=== PATIENT | male | born 1945 | race Caucasian/White ===

== ENCOUNTER → 2017-10-07 07:45 | Outpatient (CLI) | payer MEDICARE, MEDICAID, SELFPAY ==
--- NOTE | 2017-10-07 | DI.ECHO.S_ITS ---
[place] +---------+ : : [address] : [address] : : : : [id number] : : : : Phone: [phone]+ Echocardiogram Report + + :Name: CHRISTINE OH Study Date: 10/07/2017 Height: 72 in : :[facility] Weight: 295 lb : : Gender: Male BSA: 2.5 m2 : :: 1945 Age: 72 yrs BP: 120/70 mmHg: :Reason For Study: SOB : :History: CABG : :Ordering Physician: Arron : :Marianela Performed By: Essie Solis : + + Interpretation Summary The left ventricle is normal in size. Left ventricular systolic function is normal. The ejection fraction is estimated to be 55-60%. LVEF has mildly improved. There are no obvious focal wall motion abnormalities noted but poor endocardial definition reduces the sensitivity for the detection of such. Cannot exclude inferior and inferoseptal hypokinesis. Assessment of diastolic parameters indicates normal left ventricular diastolic function and normal filling pressures. The right ventricle is mildly dilated. Right ventricular systolic function is at the lower limits of normal. The right ventricular systolic pressure is estimated at 31 mmHg assuming a right atrial pressure of 8 mm Hg. Both atria are normal in size. There is mild aortic regurgitation. There is mild to moderate tricuspid regurgitation. There is no other significant valvular heart disease. The ascending aorta is mild-moderately enlarged. Procedure: A two-dimensional transthoracic echocardiogram with color flow and Doppler was performed. The study quality was technically adequate. A contrast injection of Definity was performed to improve assessment of LV function. Comparison is made with the echocardiogram of 01/10/2014. The patient was in normal sinus rhythm during the exam. The patient had occasional PVCs during the exam. Left Ventricle: The left ventricle is normal in size. Left ventricular wall thickness is normal. There is no ventricular septal defect visualized. Left ventricular systolic function is normal. The ejection fraction is estimated to be 55-60%. There are no obvious focal wall motion abnormalities noted but poor endocardial definition reduces the sensitivity for the detection of such. Assessment of diastolic parameters indicates normal left ventricular diastolic function and normal filling pressures. Right Ventricle: The right ventricle is mildly dilated. Right ventricular systolic function is at the lower limits of normal. Atria: Both atria are normal in size. There is no Doppler evidence for an interatrial shunt. Mitral Valve: The mitral valve is normal in structure and function. There is trace mitral regurgitation. Aortic Valve: The aortic valve is trileaflet. There is no aortic valve stenosis. There is mild aortic regurgitation. Tricuspid Valve: The tricuspid valve leaflets are thin and pliable. There is mild to moderate tricuspid regurgitation. The right ventricular systolic pressure is estimated at 31 mmHg assuming a right atrial pressure of 8 mm Hg. Pulmonic Valve: The pulmonic valve leaflets are thin and pliable; valve motion is normal. There is a trace or physiologic amount of pulmonic regurgitation. There is no other significant valvular heart disease. Great Vessels: The aortic root is normal size. The ascending aorta is mild- moderately enlarged. The aortic arch could not be visualized. The pulmonary artery is normal size. The IVC is dilated (diameter is greater than 2.1 cm) yet it collapses greater than 50% with a sniff. This suggests a right atrial pressure of 8 mm Hg. Pericardium/ Pleura There is no pericardial effusion. MMode/2D Measurements & Calculations LVIDd: 5.7 cm LVOT diam: 2.2 cm LVIDs: 3.6 cm Ao root diam: 3.6 cm FS: 36.8 % Aortic Jxn: 3.3 cm EPSS: 0.74 cm asc Aorta Diam: 4.0 cm IVSd: 0.93 cm LVPWd: 0.71 cm LV schreiber. diameter/BSA (cm/m^2): 2.3 LV sys. diameter/BSA (cm/m^2): 1.4 LA A2 area: 19.2 cm2 RA long axis: 5.6 cm LA A4 area: 20.0 cm2 RA area: 19.7 cm2 LA length (vol): 5.8 cm RA vol: 58.2 ml LA vol: 56.5 ml RA : 23.2 ml/m2 LA vol index: 22.5 ml/m2 IVC diam: 2.2 cm RVD1 (basal): 4.3 cm RVD2 (mid): 3.0 cm TAPSE: 1.8 cm Doppler Measurements & Calculations Ao V2 max: 139.4 cm/sec LVOT Max Diogo: 82.0 cm/sec Ao V2 mean: 93.9 cm/sec LV V1 max P.7 mmHg Ao max P.8 mmHg LV V1 VTI: 15.9 cm Ao mean P.0 mmHg IRINEO(I,D): 2.1 cm2 Ao V2 VTI: 28.7 cm IRINEO(V,D): 2.2 cm2 sev ratio: 0.56 IRINEO indexed to BSA (cm^2/m^2): 0.82 MV E max diogo: 82.0 cm/sec TR max diogo: 240.7 cm/sec MV A max diogo: 74.1 cm/sec TR max P.2 mmHg MV E/A: 1.1 PA V2 max: 88.2 cm/sec Med Peak E' Diogo: 5.9 cm/sec PA V2 mean: 59.1 cm/sec E/E' med: 13.9 PA mean P.6 mmHg Lat Peak E' Diogo: 9.3 cm/sec PA Accel Time: 0.07 sec E/E' lat: 8.9 E/e' average: 11.4 MV dec time: 0.16 sec MV P1/2t: 47.4 msec MV P1/2t max diogo: 82.1 cm/sec MVA(P1/2t): 4.6 cm2 Reading Physician:BR[place]N
== END ==
PROVIDERS: PCP Family Medicine; Visit Provider Internal Medicine Cardiovascular Disease
DX: I08.2 Rheumatic disorders of both aortic and tricuspid valves (principal); R06.02 Shortness of breath; Z95.1 Presence of aortocoronary bypass graft
CPT/HCPCS: 93306; Q9957

== ENCOUNTER 2017-12-11 13:41 | Emergency (ER) | payer MEDICARE, MEDICAID, SELFPAY ==
[2017-12-11 14:00] VITALS: BP 116/75; PULSE 91; RESP 22; TEMP 36.7; O2SAT 96
--- NOTE | 2017-12-11 14:16 | ED.LOWEXIN ---
HPI - Extremity Injury (Lower) <More Bedolla PA-C - Last Filed: 12/11/17 23:00> General Chief Complaint: Extremity Injury, Lower Stated Complaint: LEFT HIP PAIN Time Seen by Provider: 12/11/17 14:16 Source: patient and family Mode of arrival: ambulatory Limitations: no limitations History of Present Illness HPI Narrative: This 72-year-old male comes in due to worsening left hip pain. He states that he has had gradually worsening pain over the last couple of months and actually has an orthopedics appointment next , however on Thursday he felt some discomfort during a twisting motion and has been significantly worse since then, even more so since yesterday. 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 He has chronic foot drop and states the foot is always weak and he wears a prosthesis to help with that. There are no changes there. He states that he had a femur and knee fracture a couple of years ago and a foot drop is related to that, but also states that he was told he may have nerve compression in his spine contributing. He denies any new back pain. He does not feel like the hip or leg are more weak and states that it is pain that keeps him from moving. He denies any other new complaints today. He has tried Tylenol and ibuprofen with little relief Related Data Home Medications Medication Instructions Recorded Confirmed metoprolol tartrate 25 mg PO DIRECTED 12/11/17 12/11/17 Previous Rx's Medication Instructions Recorded doxazosin [Cardura] 4 mg PO Q DAY #90 tab 03/24/16 aspirin 81 mg PO Q DAY #30 tab 06/10/16 atorvastatin 80 mg PO HS #90 tab 07/10/17 lisinopril 5 mg PO QDAY #90 tab 07/10/17 ranitidine HCl 150 mg PO BID #180 tab 07/10/17 amitriptyline 10 mg PO HS #30 tab 07/24/17 clopidogrel 75 mg tablet 75 mg PO QDAY #90 tab 10/02/17 finasteride 5 mg tablet 5 mg PO QDAY #90 tab 10/30/17 levothyroxine 175 mcg tablet 175 mcg PO QAM #90 tab 10/30/17 omeprazole 20 mg tablet,delayed 20 mg PO QDAY #90 tab 10/30/17 release hydrocodone-acetaminophen [[place]] 1 tab PO Q6H PRN #14 tab 12/11/17 Allergies Allergy/AdvReac Type Severity Reaction Status Date / Time Sulfa (Sulfonamide Allergy Unknown Unverified 11/06/17 12:13 Antibiotics) [SULFA (SULFONAMIDE ANTIBIOTICS)] Review of Systems <More Bedolla PA-C - Last Filed: 12/11/17 23:00> Review of Systems All systems reviewed & are unremarkable except as noted in HPI and below Exam <More Bedolla PA-C - Last Filed: 12/11/17 23:00> Narrative Exam Narrative: GENERAL APPEARANCE: Patient sitting comfortably, in no distress. LUNGS: Clear to auscultation bilaterally. HEART: Rate and rhythm regular without murmur, normal S1 and S2, no S3 or S4. MUSCULOSKELETAL: No tenderness over the lumbar spine. He has full seated trunk range of motion aside from mildly reduced flexion secondary to left hip tenderness. Tender over the left posterior lateral hip at the femoral head and proximal. He has reduced active range of motion of the hip in all robin reduced passive range of motion secondary to tenderness and stiffness. Negative Kody's test DERM: No exanthem over the L. hip or trunk NEUROLOGIC: Alert and oriented with normal speech and coordination, sensation over the lower extremities grossly intact EXTREMITIES: No edema or calf tenderness Initial Vital Signs Initial Vital Signs: Vital Signs Temperature 98.1 F 12/11/17 14:00 Pulse Rate 91 H 12/11/17 14:00 Respiratory Rate 22 12/11/17 14:00 Blood Pressure 116/75 12/11/17 14:00 Pulse Oximetry 96 12/11/17 14:00 <Eric Parr MD - Last Filed: 01/07/18 18:20> Initial Vital Signs Initial Vital Signs: Vital Signs Temperature 98.1 F 12/11/17 14:00 Pulse Rate 91 H 12/11/17 14:00 Respiratory Rate 22 12/11/17 14:00 Blood Pressure 116/75 12/11/17 14:00 Pulse Oximetry 96 12/11/17 14:00 Course <More Bedolla PA-C - Last Filed: 12/11/17 23:00> Orders Ordered: ED Orders 12/11/17 14:18 XR hip w pel if done LT 2V Stat Vital Signs - 8 hr 12/11/17 14:00 Temperature 98.1 F Pulse Rate 91 H Respiratory Rate 22 Blood Pressure 116/75 Pulse Oximetry 96 <Eric Parr MD - Last Filed: 01/07/18 18:20> Orders Ordered: ED Orders 12/11/17 14:18 XR hip w pel if done LT 2V Stat Vital Signs - 8 hr 12/11/17 14:00 Temperature 98.1 F Pulse Rate 91 H Respiratory Rate 22 Blood Pressure 116/75 Pulse Oximetry 96 MDM - Extremity Injury (Lower) <More Bedolla PA-C - Last Filed: 12/11/17 23:00> Imaging Data hip: Radiologist's impression: View Report History [address] [address] XRay Report Signed Patient: Stephan Cook MR#: [id number] : 1945 Acct:[id number] Age/Sex: 72 / M Date of Service: 12/11/17 Loc: ED Accession Number: [id number] Procedure: XR hip w pel if done LT 2V Ordering Provider: oMre Bedolla P.A-C PROCEDURE: XR HIP W PEL IF DONE LT 2V INDICATIONS: pain TECHNIQUE: AP pelvis with lateral view(s) of the left hip(s). COMPARISON: [facility], , XR PELVIS W LATERAL HIP LT, 01/21/2017, 14:17. FINDINGS: Bones: No fractures or dislocations. Pelvic ring appears intact. No suspicious bony lesions. Bilateral degenerative hip joint disease is again noted with some interval progression in severity, more prominent osteophyte formation over the left femoral head. Joint space narrowing and reactive sclerosis over the acetabula, left greater than right, appears unchanged. No deformity of the femoral heads. Soft tissues: The visualized bowel gas pattern is normal. No suspicious soft tissue calcifications. Surgical clips right lower quadrant as before. IMPRESSION: Grade 2 osteoarthritis of the hips, left greater than right, mild progression in severity on the left. Dictated by: Logan Banks M.D. on 12/11/2017 at 14:32 Approved by: Logan Banks M.D. on 12/11/2017 at 14:36 Discharge Plan Departure Patient Disposition: Home Clinical Impression: Hip osteoarthritis Discharge Date/Time: 12/11/17 15:37 Interventions: ED Discharge Assessment Last Done: 12/11/17 15:36 Instructions: DI for Osteoarthritis Activity Restrictions/Additional Instructions: Your x-ray shows that your hip arthritis has gotten worse since last time it was checked. It does not show a fracture or acute injury, however you may have some soft tissue inflammation on top of the joint arthritis. You should return as we talked about if you have any acutely worsening symptoms. I have given you a prescription for hydrocodone/acetaminophen, which you have taken in the past for pain without problems. Please discontinue Tylenol and take this as needed. Please use your walker at home instead of the cane and rest the hip as we talked about. See Prescriptions: New hydrocodone-acetaminophen [[place]] 5-325 mg tablet 1 tab PO Q6H PRN (Reason: pain in hip) Qty: 14 RF: 0 No Action doxazosin [Cardura] 4 MG tablet 4 mg PO Q DAY Qty: 90 RF: 0 aspirin 81 MG tablet,delayed release (DR/EC) 81 mg PO Q DAY Qty: 30 RF: 11 atorvastatin 80 MG tablet 80 mg PO HS Qty: 90 RF: 3 ranitidine HCl 150 MG tablet 150 mg PO BID Qty: 180 RF: 3 lisinopril 5 MG tablet 5 mg PO QDAY Qty: 90 RF: 3 amitriptyline 10 MG tablet 10 mg PO HS Qty: 30 RF: 0 clopidogrel [Plavix] 75 mg tablet 75 mg PO QDAY Qty: 90 RF: 3 omeprazole 20 mg tablet,delayed release (DR/EC) 20 mg PO QDAY Qty: 90 RF: 1 levothyroxine 175 mcg tablet 175 mcg PO QAM Qty: 90 RF: 1 finasteride 5 mg tablet 5 mg PO QDAY Qty: 90 RF: 1 metoprolol tartrate 25 MG tablet 25 mg PO DIRECTED RF: 0 Referrals: [facility] [Provider Group] Romeo Lacey MD [Primary Care Provider] - <Eric Parr MD - Last Filed: 01/07/18 18:20> Cosign ED Attending Lyndsayature Attestation: I was present in the ER at the time of this patient's care. I was available for verbal consultation, or to see the patient directly if needed. I agree with the assessment, and care plan.
--- NOTE | 2017-12-11 14:25 | PC.NURSE ---
Pt states l LE problems for years but on thursday felt like it was coming apart very loose feeling and I dont want to break a hip. To xray
--- NOTE | 2017-12-11 15:01 | ED_ITS ---
HPI - Extremity Injury (Lower) <More Bedolla PA-C - Last Filed: 12/11/17 23:00> General Chief Complaint: Extremity Injury, Lower Stated Complaint: LEFT HIP PAIN Time Seen by Provider: 12/11/17 14:16 Source: patient and family Mode of arrival: ambulatory Limitations: no limitations History of Present Illness HPI Narrative: This 72-year-old male comes in due to worsening left hip pain. He states that he has had gradually worsening pain over the last couple of months and actually has an orthopedics appointment next , however on Thursday he felt some discomfort during a twisting motion and has been significantly worse since then, even more so since yesterday. 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 He has chronic foot drop and states the foot is always weak and he wears a prosthesis to help with that. There are no changes there. He states that he had a femur and knee fracture a couple of years ago and a foot drop is related to that, but also states that he was told he may have nerve compression in his spine contributing. He denies any new back pain. He does not feel like the hip or leg are more weak and states that it is pain that keeps him from moving. He denies any other new complaints today. He has tried Tylenol and ibuprofen with little relief Related Data Home Medications Medication Instructions Recorded Confirmed metoprolol tartrate 25 mg PO DIRECTED 12/11/17 12/11/17 Previous Rx's Medication Instructions Recorded doxazosin [Cardura] 4 mg PO Q DAY #90 tab 03/24/16 aspirin 81 mg PO Q DAY #30 tab 06/10/16 atorvastatin 80 mg PO HS #90 tab 07/10/17 lisinopril 5 mg PO QDAY #90 tab 07/10/17 ranitidine HCl 150 mg PO BID #180 tab 07/10/17 amitriptyline 10 mg PO HS #30 tab 07/24/17 clopidogrel 75 mg tablet 75 mg PO QDAY #90 tab 10/02/17 finasteride 5 mg tablet 5 mg PO QDAY #90 tab 10/30/17 levothyroxine 175 mcg tablet 175 mcg PO QAM #90 tab 10/30/17 omeprazole 20 mg tablet,delayed 20 mg PO QDAY #90 tab 10/30/17 release hydrocodone-acetaminophen [[place]] 1 tab PO Q6H PRN #14 tab 12/11/17 Allergies Allergy/AdvReac Type Severity Reaction Status Date / Time Sulfa (Sulfonamide Allergy Unknown Unverified 11/06/17 12:13 Antibiotics) [SULFA (SULFONAMIDE ANTIBIOTICS)] Review of Systems <More Bedolla PA-C - Last Filed: 12/11/17 23:00> Review of Systems All systems reviewed & are unremarkable except as noted in HPI and below Exam <More Bedolla PA-C - Last Filed: 12/11/17 23:00> Narrative Exam Narrative: GENERAL APPEARANCE: Patient sitting comfortably, in no distress. LUNGS: Clear to auscultation bilaterally. HEART: Rate and rhythm regular without murmur, normal S1 and S2, no S3 or S4. MUSCULOSKELETAL: No tenderness over the lumbar spine. He has full seated trunk range of motion aside from mildly reduced flexion secondary to left hip tenderness. Tender over the left posterior lateral hip at the femoral head and proximal. He has reduced active range of motion of the hip in all robin reduced passive range of motion secondary to tenderness and stiffness. Negative Kody's test DERM: No exanthem over the L. hip or trunk NEUROLOGIC: Alert and oriented with normal speech and coordination, sensation over the lower extremities grossly intact EXTREMITIES: No edema or calf tenderness Initial Vital Signs Initial Vital Signs: Vital Signs Temperature 98.1 F 12/11/17 14:00 Pulse Rate 91 H 12/11/17 14:00 Respiratory Rate 22 12/11/17 14:00 Blood Pressure 116/75 12/11/17 14:00 Pulse Oximetry 96 12/11/17 14:00 <Eric Parr MD - Last Filed: 01/07/18 18:20> Initial Vital Signs Initial Vital Signs: Vital Signs Temperature 98.1 F 12/11/17 14:00 Pulse Rate 91 H 12/11/17 14:00 Respiratory Rate 22 12/11/17 14:00 Blood Pressure 116/75 12/11/17 14:00 Pulse Oximetry 96 12/11/17 14:00 Course <More Bedolla PA-C - Last Filed: 12/11/17 23:00> Orders Ordered: ED Orders 12/11/17 14:18 XR hip w pel if done LT 2V Stat Vital Signs - 8 hr 12/11/17 14:00 Temperature 98.1 F Pulse Rate 91 H Respiratory Rate 22 Blood Pressure 116/75 Pulse Oximetry 96 <Eric Parr MD - Last Filed: 01/07/18 18:20> Orders Ordered: ED Orders 12/11/17 14:18 XR hip w pel if done LT 2V Stat Vital Signs - 8 hr 12/11/17 14:00 Temperature 98.1 F Pulse Rate 91 H Respiratory Rate 22 Blood Pressure 116/75 Pulse Oximetry 96 MDM - Extremity Injury (Lower) <More Bedolla PA-C - Last Filed: 12/11/17 23:00> Imaging Data hip: Radiologist's impression: View Report History [address] [address] XRay Report Signed Patient: Stephan Cook MR#: [id number] : 1945 Acct:[id number] Age/Sex: 72 / M Date of Service: 12/11/17 Loc: ED Accession Number: [id number] Procedure: XR hip w pel if done LT 2V Ordering Provider: More Bedolla P.A-C PROCEDURE: XR HIP W PEL IF DONE LT 2V INDICATIONS: pain TECHNIQUE: AP pelvis with lateral view(s) of the left hip(s). COMPARISON: [facility], , XR PELVIS W LATERAL HIP LT, 01/21/2017 , 14:17. FINDINGS: Bones: No fractures or dislocations. Pelvic ring appears intact. No suspicious bony lesions. Bilateral degenerative hip joint disease is again noted with some interval progression in severity, more prominent osteophyte formation over the left femoral head. Joint space narrowing and reactive sclerosis over the acetabula, left greater than right, appears unchanged. No deformity of the femoral heads. Soft tissues: The visualized bowel gas pattern is normal. No suspicious soft tissue calcifications. Surgical clips right lower quadrant as before. IMPRESSION: Grade 2 osteoarthritis of the hips, left greater than right, mild progression in severity on the left. Dictated by: Logan Banks M.D. on 12/11/2017 at 14:32 Approved by: Logan Banks M.D. on 12/11/2017 at 14:36 Discharge Plan Departure Patient Disposition: Home Clinical Impression: Hip osteoarthritis Discharge Date/Time: 12/11/17 15:37 Interventions: ED Discharge Assessment Last Done: 12/11/17 15:36 Instructions: DI for Osteoarthritis Activity Restrictions/Additional Instructions: Your x-ray shows that your hip arthritis has gotten worse since last time it was checked. It does not show a fracture or acute injury, however you may have some soft tissue inflammation on top of the joint arthritis. You should return as we talked about if you have any acutely worsening symptoms. I have given you a prescription for hydrocodone/acetaminophen, which you have taken in the past for pain without problems. Please discontinue Tylenol and take this as needed. Please use your walker at home instead of the cane and rest the hip as we talked about. See Prescriptions: New hydrocodone-acetaminophen [[place]] 5-325 mg tablet 1 tab PO Q6H PRN (Reason: pain in hip) Qty: 14 RF: 0 No Action doxazosin [Cardura] 4 MG tablet 4 mg PO Q DAY Qty: 90 RF: 0 aspirin 81 MG tablet,delayed release (DR/EC) 81 mg PO Q DAY Qty: 30 RF: 11 atorvastatin 80 MG tablet 80 mg PO HS Qty: 90 RF: 3 ranitidine HCl 150 MG tablet 150 mg PO BID Qty: 180 RF: 3 lisinopril 5 MG tablet 5 mg PO QDAY Qty: 90 RF: 3 amitriptyline 10 MG tablet 10 mg PO HS Qty: 30 RF: 0 clopidogrel [Plavix] 75 mg tablet 75 mg PO QDAY Qty: 90 RF: 3 omeprazole 20 mg tablet,delayed release (DR/EC) 20 mg PO QDAY Qty: 90 RF: 1 levothyroxine 175 mcg tablet 175 mcg PO QAM Qty: 90 RF: 1 finasteride 5 mg tablet 5 mg PO QDAY Qty: 90 RF: 1 metoprolol tartrate 25 MG tablet 25 mg PO DIRECTED RF: 0 Referrals: [facility] [Provider Group] Romeo Lacey MD [Primary Care Provider] - <Eric Parr MD - Last Filed: 01/07/18 18:20> Cosign ED Attending Lyndsayature Attestation: I was present in the ER at the time of this patient's care. I was available for verbal consultation, or to see the patient directly if needed. I agree with the assessment, and care plan.
== END 2017-12-11 15:37 | disposition home or self-care (01) ==
PROVIDERS: Emergency Provider Internal Medicine; PCP Family Medicine
DX: M16.12 Unilateral primary osteoarthritis, left hip (principal)
CPT/HCPCS: 73502; 99282; 99283

== ENCOUNTER → 2018-03-04 09:26 | Outpatient (CLI) | payer MEDICARE, MEDICAID, SELFPAY | PROVIDERS: PCP Student in an Organized Health Care Education/Training Program; Visit Provider Psychiatry & Neurology Neurology | DX: M89.9 Disorder of bone, unspecified (principal) | CPT/HCPCS: 77080 ==

== ENCOUNTER → 2019-03-02 13:44 | Outpatient (CLI) | payer MEDICARE, MEDICAID, SELFPAY ==
[2019-03-02 14:41] LABS: Hemoglobin A1C% w Est Avg Glu 6.2 % (4.0-6.0)
== END ==
PROVIDERS: PCP Student in an Organized Health Care Education/Training Program; Visit Provider Student in an Organized Health Care Education/Training Program
DX: E66.01 Morbid (severe) obesity due to excess calories (principal); R73.9 Hyperglycemia, unspecified
CPT/HCPCS: 36415; 83036

== ENCOUNTER 2020-08-04 09:10 | Emergency (ER) | payer MEDICARE, MEDICAID, SELFPAY ==
[2020-08-04] VITALS (10 sets, daily range): BP systolic 94–122; BP diastolic 58–74; PULSE 77–103; RESP 15; TEMP 36.4; O2SAT 95–99; BMI 32.5
--- NOTE | 2020-08-04 09:30 | DI.CT.S_ITS ---
PROCEDURE: CT ABDOMEN PELVIS W CON INDICATIONS: suprapubic pain and llq pain TECHNIQUE: After the administration of intravenous contrast, 5 mm thick sections acquired from the diaphragm to the symphysis. 5 mm coronal and sagittal reformats were acquired. For radiation dose reduction, the following was used: automated exposure control, adjustment of mA and/or kV according to patient size. COMPARISON: [facility], CT, ABDOMEN/PELVIS WITH CONTRAST, 09/18/2006, 15:52. FINDINGS: Image quality: Excellent. ABDOMEN: Lung bases: Lung bases are clear. Heart size is normal. Multi-vessel coronary artery calcifications. Solid organs: Diffuse hypoattenuation of the liver. Gallbladder is partially distended. Normal appearance of the pancreas. Normal appearance of the adrenal glands. There is a 5 millimeter stone in the proximal left ureter with associated very mild left hydronephrosis and perinephric stranding. Additional punctate stone in the inferior left kidney. Stable appearance of multiple bilateral renal cysts including a 1.4 centimeter exophytic mildly hyperdense left renal cyst likely containing hemorrhagic or proteinaceous components. These appear largely stable since 2006 without development of suspicious findings. Peritoneum and bowel: Bowel loops demonstrate normal wall thickness and caliber. Duodenal diverticulum. Diverticulosis of the sigmoid colon. The appendix is surgically absent. No free fluid or air. Nodes and vessels: No retroperitoneal or mesenteric adenopathy by size criteria. Aorta and inferior vena cava are normal in size. Miscellaneous: No ventral hernias. PELVIS: Genitourinary: Bladder wall thickness is normal. Miscellaneous: No inguinal hernias or adenopathy. Bones: No suspicious bony lesions. No vertebral body compression fractures. Multilevel degenerative changes of the spine. Degenerate changes of the hips. IMPRESSION: 5 millimeter proximal left ureteral stone with very mild left kidney hydronephrosis and perinephric stranding. There is an additional punctate stone in the left kidney. Colonic and duodenal diverticulosis. Dictated by: Deyvi Verma M.D. on 08/04/2020 at 9:50 Approved by: Deyvi Verma M.D. on 08/04/2020 at 10:02
--- NOTE | 2020-08-04 09:33 | DI.RAD.S_ITS ---
PROCEDURE: XR CHEST 1V INDICATIONS: sob TECHNIQUE: One view of the chest was acquired. COMPARISON: [facility], , CHEST 1 VIEW, 01/09/2014, 16:27. FINDINGS: Surgical changes and devices: Postsurgical changes in the lower neck of the sternum and heart. Lungs and pleura: No focal consolidation. Mild atelectasis in the right lung base. No pleural effusions or pneumothorax. Mediastinum: Mediastinal contours appear normal. Heart size is normal. Bones and chest wall: No suspicious bony lesions. Overlying soft tissues appear unremarkable. IMPRESSION: No acute cardiopulmonary findings. Mild atelectasis in the right lung base. Dictated by: Deyvi Verma M.D. on 08/04/2020 at 9:01 Approved by: Deyvi Verma M.D. on 08/04/2020 at 9:02
--- NOTE | 2020-08-04 09:35 | ED.MALEGU ---
HPI - Male Genitourinary General Chief complaint: Urogenital-Male Stated complaint: urology problems Time Seen by Provider: 08/04/20 09:24 Source: patient Mode of arrival: Wheelchair Limitations: no limitations History of Present Illness HPI Narrative: Patient is a 75-year-old male with history of coronary artery disease, BPH presenting with variety of complaints. His biggest is that he has frequent urination and that he is up all night urinating. He is having maybe some mild discomfort as well. He also is having shortness of breath with exertion. He states that few weeks back he got extremely ill lost his taste and was short of breath. He says since then he has had shortness of breath with exertion. He says with minimal activity he gets extremely short of breath he denies any chest pain. He denies any orthopnea no lower extremity edema. He denies any fever or chills. He is mostly here because he is frustrated with his urination. He has an appointment with Urology in 2 weeks. MD Complaint: dysuria Onset (ago): week(s) Related Data Home Medications Medication Instructions Recorded Confirmed metoprolol tartrate 25 mg tablet 25 mg PO BID tab 05/24/20 05/24/20 Previous Rx's Medication Instructions Recorded aspirin 81 mg PO Q DAY #30 tab 06/10/16 clobetasol 0.05 % topical ointment 1 applictn TOP BID #30 gram 03/02/19 nystatin 100,000 unit/gram topical 1 applictn TOP BID #30 gram 04/07/19 powder clopidogrel 75 mg tablet 75 mg PO QDAY #90 tab 11/02/19 omeprazole 20 mg capsule,delayed See Rx Instructions .ROUTE 02/23/20 release .COMPLEX #180 capsule doxazosin 8 mg tablet 8 mg PO BEDTIME #90 each 02/24/20 finasteride 5 mg tablet 5 mg PO DAILY #90 tab 02/24/20 levothyroxine 175 mcg tablet 175 mcg PO DAILY #90 tab 02/24/20 amitriptyline 10 mg tablet See Rx Instructions .ROUTE 06/05/20 .COMPLEX #90 tablet atorvastatin 80 mg tablet 80 mg PO HS #90 tab 06/05/20 lisinopril 5 mg tablet 5 mg PO QDAY #90 tab 06/05/20 oxybutynin chloride 10 mg 10 mg PO DAILY #90 tab 07/04/20 tablet,extended release 24 hr metformin 500 mg PO BID #30 tab 08/04/20 Allergies Allergy/AdvReac Type Severity Reaction Status Date / Time Sulfa (Sulfonamide Allergy Unknown Verified 08/04/20 09:18 Antibiotics) [SULFA (SULFONAMIDE ANTIBIOTICS)] Review of Systems Review of Systems ROS Unobtainable: All systems reviewed & are unremarkable except as noted in HPI and below Constitutional Constitutional: Denies chills, Denies fever(s), Denies lethargy and Denies weakness Eyes Eyes: Denies change in vision, Denies eye discharge, Denies irritation and Denies loss of vision Cardiovascular Cardiovascular: Denies chest pain, Denies edema, Denies lightheadedness and Reports dyspnea on exertion Respiratory Respiratory: Reports dyspnea on exertion Gastrointestinal Gastrointestinal: Reports abdominal pain (Mild), Denies change in bowel habits, Denies diarrhea, Denies nausea and Denies vomiting Genitourinary Genitourinary: Reports as per HPI, Reports nocturia and Reports urinary urgency Genitourinary: Reports as per HPI, Reports nocturia and Reports urinary urgency Integumentary/Breasts Skin/Breast: Denies pruritus, Denies erythema, Denies rash and Denies wounds Neurologic Neurologic: Denies loss of vision and Denies weakness Patient History Medical History Acquired hypothyroidism (03/30/15) Benign non-nodular prostatic hyperplasia with lower urinary tract symptoms (03/30/15) Bullous impetigo Chickenpox Coronary artery disease involving [place] coronary artery of [place] heart without angina pectoris (03/30/15) Degenerative disc disease, lumbar Diet-controlled type 2 diabetes mellitus Essential hypertension (03/30/15) Foraminal stenosis of lumbosacral region (07/02/17) Fracture of medial condyle of femur Gastroesophageal reflux disease without esophagitis (03/30/15) Kidney stone on left side Kidney stones Left foot drop (12/30/16) Measles Mixed hyperlipidemia (03/30/15) Obstructive sleep apnea of adult (~2003) Primary insomnia (~2003) Primary osteoarthritis of both hips (07/02/17) Primary osteoarthritis of left knee (07/02/17) Sciatica Surgical History S/P angioplasty with stent S/P appendectomy (2007) S/P coronary artery bypass graft x 4 S/P partial thyroidectomy (~1999) S/P vasectomy Family History Brother Prostate cancer Mother Diabetes mellitus Hypertension Stroke Father Prostate cancer Brother Prostate cancer Social History details: Single, but with same partner 35+ years, has children and now grandkids occupational status: previously employed Smoking Status: Never smoker alcohol intake: former substance use type: does not use Smoking Status: Never smoker alcohol intake frequency: 0-2 drinks per day Substance Use Type: does not use Exam Initial Vital Signs Initial Vital Signs: Vital Signs Temperature 97.5 F L 08/04/20 09:13 Pulse Rate 103 H 08/04/20 09:13 Respiratory Rate 15 08/04/20 09:13 Blood Pressure 122/69 08/04/20 09:13 Pulse Oximetry 98 08/04/20 09:13 GENERAL: Alert pleasant 75-year-old male and in no acute distress. HEENT: Head atraumatic,EOMI, pupils reactive, face symmetric, moist mucous membranes CARDIOVASCULAR: Regular rate and rhythm without murmurs, rubs or gallops. RESPIRATORY: Breath sounds equal bilaterally, no wheezes rales or rhonchi. ABDOMEN: Soft, mild suprapubic pain along with mild left lower quadrant pain no guarding no rebound : No CVA tenderness EXTREMITIES: Normal range of motion, no clubbing or edema. Neurovascularly intact NEUROLOGICAL: Alert and oriented x4.Normal gait and speech. SKIN: Warm, dry, no laceration, no petechiae, no rashes or lesions. Course Orders Ordered: ED Orders 08/04/20 09:30 CT abdomen pelvis w con Stat 08/04/20 09:33 XR chest 1V Stat EKG-12 Lead Stat 08/04/20 09:45 Complete Blood Count AUTO DIFF Stat Comprehensive Metabolic Panel Stat Hemoglobin A1C% w Est Avg Glu Stat Lipase Stat NT-proBNP (BNP-Adult 18+) Stat Troponin & CK Cardiac Panel Stat Urinalysis and Microscopic Stat Discontinued Medications Sodium Chloride (Normal Saline 0.9%) 1,000 mls @ 1,000 mls/hr IV BOLUS ONE Stop: 08/04/20 11:25 Last Infusion: 08/04/20 11:29 Dose: 0 mls/hr Documented by: Admin: 08/04/20 10:26 Dose: 1,000 mls/hr Documented by: CONRADO Vital Signs Vital signs: Vital Signs - 8 hr 08/04/20 10:30 08/04/20 10:31 08/04/20 11:00 Pulse Rate 81 82 77 Blood Pressure 94/61 98/58 L Pulse Oximetry 96 95 97 08/04/20 11:30 08/04/20 11:32 08/04/20 12:03 Pulse Rate 98 H 92 H Blood Pressure 106/74 Pulse Oximetry 98 99 MDM - Male Genitourinary Lab Data Attestation: I reviewed the patient's lab results. Lab results narrative: Anion Gap 16 Sodium correction: 134 Result diagrams: 08/04/20 09:45 08/04/20 09:45 Labs: Lab Results 08/04/20 08/04/20 08/04/20 Range/Units 09:45 09:45 09:45 WBC 8.0 (4.5-11.0) X10^3/uL RBC 4.23 L (4.5-5.9) X10^6/uL Hgb 12.7 L (13.5-17.5) g/dL Hct 38.9 L (41-53) % MCV 92.0 (80-100) fL MCH 30.0 (26-34) PG MCHC 32.6 (30-36) % RDW 16.7 H (11.6-14.8) % Plt Count 343 (150-400) X10^3/uL Neut % (Auto) 76.6 H (50-75) % Lymph % (Auto) 14.4 L (25-40) % [place] % (Auto) 7.6 (3-14) % Eos % (Auto) 0.9 L (2-4) % Baso % (Auto) 0.5 (0-2) % Neut # (Auto) 6100 (1756-8328) /uL Lymph # (Auto) 1200 (1075-1550) /uL [place] # (Auto) 600 (0-900) /uL Eos # (Auto) 100 (0-450) /uL Baso # (Auto) 0 (0-100) /uL Sodium 124 L (137-145) mmol/L Potassium 4.7 (3.4-5.1) mmol/L Chloride 87 L (98-107) mmol/L Carbon Dioxide 21 L (22-32) mmol/L BUN 18 (9-20) mg/dL Creatinine 0.93 (0.66-1.25) mg/dL Estimated GFR > 60.0 (>60) mL/min BUN/Creatinine Ratio 19.4 (6-22) Glucose 715 H* (80-110) mg/dL Hemoglobin A1c (4.0-6.0) % Calcium 9.2 (8.4-10.2) mg/dL Total Bilirubin 0.7 (0.2-1.3) mg/dL AST 15 L (17-59) IU/L ALT 14 (<50) IU/L Alkaline Phosphatase 102 (38-126) U/L Total Creatine Kinase 40 L (55-170) U/L CK-MB (CK-2) TNP CK-MB (CK-2) Rel Index TNP Troponin I < 0.012 (0.01-0.034) ng/mL NT-Pro-B Natriuret Pep 493 H (<450) pg/mL Total Protein 6.7 (6.3-8.2) g/dL Albumin 3.9 (3.5-5.0) g/dL Globulin 2.8 (1.7-4.1) g/dL Albumin/Globulin Ratio 1.4 (1.0-2.8) Lipase 284 (23-300) U/L Urine Color Urine Appearance Urine pH (4.5-8.0) Ur Specific [place] (1.000-1.035) Urine Protein (Negative) Urine Glucose (UA) (Negative) g/dL Urine Ketones (NEGATIVE) Urine Occult Blood (Negative) Urine Nitrate (Negative) Urine Bilirubin (NEGATIVE) Urine Urobilinogen (0.2) E.U./dL Ur Leukocyte Esterase (NEGATIVE) Urine RBC (0-5/HPF) Urine WBC (0-5/HPF) Ur Squamous Epith Cells (0-5/HPF) Urine Bacteria (None) Ur Culture Indicated? 08/04/20 08/04/20 08/04/20 Range/Units 09:45 09:45 09:45 WBC (4.5-11.0) X10^3/uL RBC (4.5-5.9) X10^6/uL Hgb (13.5-17.5) g/dL Hct (41-53) % MCV (80-100) fL MCH (26-34) PG MCHC (30-36) % RDW (11.6-14.8) % Plt Count (150-400) X10^3/uL Neut % (Auto) (50-75) % Lymph % (Auto) (25-40) % [place] % (Auto) (3-14) % Eos % (Auto) (2-4) % Baso % (Auto) (0-2) % Neut # (Auto) (4994-0024) /uL Lymph # (Auto) (3180-6444) /uL [place] # (Auto) (0-900) /uL Eos # (Auto) (0-450) /uL Baso # (Auto) (0-100) /uL Sodium (137-145) mmol/L Potassium (3.4-5.1) mmol/L Chloride (98-107) mmol/L Carbon Dioxide (22-32) mmol/L BUN (9-20) mg/dL Creatinine (0.66-1.25) mg/dL Estimated GFR (>60) mL/min BUN/Creatinine Ratio (6-22) Glucose Cancelled (80-110) mg/dL Hemoglobin A1c > 14.0 H (4.0-6.0) % Calcium (8.4-10.2) mg/dL Total Bilirubin (0.2-1.3) mg/dL AST (17-59) IU/L ALT (<50) IU/L Alkaline Phosphatase (38-126) U/L Total Creatine Kinase (55-170) U/L CK-MB (CK-2) CK-MB (CK-2) Rel Index Troponin I (0.01-0.034) ng/mL NT-Pro-B Natriuret Pep (<450) pg/mL Total Protein (6.3-8.2) g/dL Albumin (3.5-5.0) g/dL Globulin (1.7-4.1) g/dL Albumin/Globulin Ratio (1.0-2.8) Lipase (23-300) U/L Urine Color Yellow Urine Appearance Sl cloudy Urine pH 5.0 (4.5-8.0) Ur Specific [place] <=1.005 (1.000-1.035) Urine Protein Negative (Negative) Urine Glucose (UA) 3+ H (Negative) g/dL Urine Ketones 1+ H (NEGATIVE) Urine Occult Blood 3+ H (Negative) Urine Nitrate Negative (Negative) Urine Bilirubin Negative (NEGATIVE) Urine Urobilinogen 0.2 (0.2) E.U./dL Ur Leukocyte Esterase Negative (NEGATIVE) Urine RBC 10-30/hpf H (0-5/HPF) Urine WBC 0-1/hpf (0-5/HPF) Ur Squamous Epith Cells 0-1 /hpf (0-5/HPF) Urine Bacteria None seen (None) Ur Culture Indicated? Cult not indicated Imaging Data Chest x-ray: Radiologist's Impression: PROCEDURE: XR CHEST 1V INDICATIONS: sob TECHNIQUE: One view of the chest was acquired. COMPARISON: [facility], , CHEST 1 VIEW, 01/09/2014, 16:27. FINDINGS: Surgical changes and devices: Postsurgical changes in the lower neck of the sternum and heart. Lungs and pleura: No focal consolidation. Mild atelectasis in the right lung base. No pleural effusions or pneumothorax. Mediastinum: Mediastinal contours appear normal. Heart size is normal. Bones and chest wall: No suspicious bony lesions. Overlying soft tissues appear unremarkable. IMPRESSION: No acute cardiopulmonary findings. Mild atelectasis in the right lung base. Dictated by: Deyvi Verma M.D. on 08/04/2020 at 9:01 CT scan - abdomen/pelvis: Radiologist's Impression: PROCEDURE: CT ABDOMEN PELVIS W CON INDICATIONS: suprapubic pain and llq pain TECHNIQUE: After the administration of intravenous contrast, 5 mm thick sections acquired from the diaphragm to the symphysis. 5 mm coronal and sagittal reformats were acquired. For radiation dose reduction, the following was used: automated exposure control, adjustment of mA and/or kV according to patient size. COMPARISON: [facility], CT, ABDOMEN/PELVIS WITH CONTRAST, 09/18/2006, 15:52. FINDINGS: Image quality: Excellent. ABDOMEN: Lung bases: Lung bases are clear. Heart size is normal. Multi-vessel coronary artery calcifications. Solid organs: Diffuse hypoattenuation of the liver. Gallbladder is partially distended. Normal appearance of the pancreas. Normal appearance of the adrenal glands. There is a 5 millimeter stone in the proximal left ureter with associated very mild left hydronephrosis and perinephric stranding. Additional punctate stone in the inferior left kidney. Stable appearance of multiple bilateral renal cysts including a 1.4 centimeter exophytic mildly hyperdense left renal cyst likely containing hemorrhagic or proteinaceous components. These appear largely stable since 2006 without development of suspicious findings. Peritoneum and bowel: Bowel loops demonstrate normal wall thickness and caliber. Duodenal diverticulum. Diverticulosis of the sigmoid colon. The appendix is surgically absent. No free fluid or air. Nodes and vessels: No retroperitoneal or mesenteric adenopathy by size criteria. Aorta and inferior vena cava are normal in size. Miscellaneous: No ventral hernias. PELVIS: Genitourinary: Bladder wall thickness is normal. Miscellaneous: No inguinal hernias or adenopathy. Bones: No suspicious bony lesions. No vertebral body compression fractures. Multilevel degenerative changes of the spine. Degenerate changes of the hips. IMPRESSION: 5 millimeter proximal left ureteral stone with very mild left kidney hydronephrosis and perinephric stranding. There is an additional punctate stone in the left kidney. Colonic and duodenal diverticulosis. Dictated by: Deyvi Verma M.D. on 08/04/2020 at 9:50 ECG Data Attestation: I personally reviewed and interpreted this ECG as follows: Prior ECG tracings: available for review Interpretation: Sinus rhythm rate 87 p.r. interval 154 QRS [address] changes no T-wave inversions similar to previous EKG MDM Narrative Medical decision making narrative: Patient is found to be quite hyperglycemic new onset diabetes likely to be the cause of his urinary frequency. Sodium does correct to 134, anion gap is 16. At this time no sign of DKA. He will need to be started on medications or if started him on metformin but he will likely need something more for his hemoglobin A1c is greater than 14. No sign of infection. He is also found to have left-sided kidney stone which may be causing some of his discomfort. There is no infection no antibiotics indicated. This does not seem to be causing him a great deal of discomfort. He says that he has actually had for the past 1 the has even required lithotripsy he says he was not even aware that he had kidney stone today Discharge Plan Departure Patient Disposition: Home Clinical Impression: Kidney stone on left side Diabetes Qualifiers: Diabetes mellitus type: other specified (including NILA) Diabetes mellitus exterminator insulin use: without exterminator use Diabetes mellitus complication status: with hyperglycemia Qualified Code(s): E13.65 - Other specified diabetes mellitus with hyperglycemia Instructions: Type 2 Diabetes, DI for Kidney Stones Activity Restrictions/Additional Instructions: *You have been diagnosed with diabetes and left-sided kidney stone *What to do: Your kidney stone should pass over the next few days. However today you were found to have diabetes this is likely the cause of her increased thirst and increased urination. There is no infection. He will likely need more medications but I will start you on something today called metformin. *Continue to take medications as directed Metformin 500 mg twice a day for diabetes, you will likely need more medication than this. Ibuprofen 600 mg every 6-8 hours if needed for [id number] pain Tylenol 650 mg every 4-6 hours if needed for [id number] pain *Follow up with your primary care provider in 2-3 days *Return to ER if you should have increasing pain, fever, nausea vomiting or weakness or any new, worsening or concerning symptoms Prescriptions: New metformin 500 mg tablet 500 mg PO BID Qty: 30 RF: 0 No Action aspirin 81 MG tablet,delayed release (DR/EC) 81 mg PO Q DAY Qty: 30 RF: 11 clopidogrel [Plavix] 75 mg tablet 75 mg PO QDAY Qty: 90 RF: 3 omeprazole 20 mg capsule,delayed release(DR/EC) See Rx Instructions .ROUTE .COMPLEX Qty: 180 RF: 1 doxazosin 8 mg tablet 8 mg PO BEDTIME Qty: 90 RF: 1 finasteride 5 mg tablet 5 mg PO DAILY Qty: 90 RF: 1 levothyroxine 175 mcg tablet 175 mcg PO DAILY Qty: 90 RF: 1 lisinopril 5 mg tablet 5 mg PO QDAY Qty: 90 RF: 3 amitriptyline 10 mg tablet See Rx Instructions .ROUTE .COMPLEX Qty: 90 RF: 3 Hold Instructions: Trial of cessation atorvastatin 80 mg tablet 80 mg PO HS Qty: 90 RF: 3 oxybutynin chloride 10 mg tablet extended release 24hr 10 mg PO DAILY Qty: 90 RF: 3 nystatin 100,000 unit/gram powder 1 applictn TOP BID Qty: 30 RF: 0 metoprolol tartrate 25 mg tablet 25 mg PO BID RF: 0 clobetasol 0.05 % ointment 1 applictn TOP BID Qty: 30 RF: 1 Referrals: Hansel Jones MD [Primary Care Provider] -
[2020-08-04 09:48] LABS: Bacteria Urine None Seen
[2020-08-04 09:49] LABS: Bilirubin Urine UA NEGATIVE (NEGATIVE); Color Urine UA YELLOW; Glucose Urine UA 3+ g/dL (Negative); Ketones Urine UA 1+ (NEGATIVE); Leukocyte Esterase Urine UA NEGATIVE (NEGATIVE); Nitrite Urine UA NEGATIVE (Negative); Occult Blood Urine UA 3+ (Negative); Protein Urine UA NEGATIVE (Negative); Specific Gravity Urine UA <=1.005 (1.000-1.035); Urobilinogen Urine UA 0.2 E.U./dL (0.2)
[2020-08-04 09:51] LABS: Add Manual Diff / Slide Review NO; Basophils Absolute Auto 0 /uL (0-100); Basophils Percent Auto 0.5 % (0-2); Eosinophils Absolute Auto 100 /uL (0-450); Eosinophils Percent Auto 0.9 % (2-4); Hematocrit 38.9 % (41-53); Hemoglobin 12.7 g/dL (13.5-17.5); Lymphocytes Absolute Auto 1200 /uL (1100-4500); Lymphocytes Percent Auto 14.4 % (25-40); Mean Corpuscular HGB Conc 32.6 % (30-36); Monocytes Absolute Auto 600 /uL (0-900); Monocytes Percent Auto 7.6 % (3-14); Neutrophils Absolute Auto 6100 /uL (1500-7000); Neutrophils Percent Auto 76.6 % (50-75); Platelet Count 343 X10^3/uL (150-400); Red Blood Cell Count 4.23 X10^6/uL (4.5-5.9); Red Cell Distribution Width 16.7 % (11.6-14.8)
[2020-08-04 09:52] LABS: Appearance Urine UA SL CLOUDY
[2020-08-04 09:56] LABS: Culture Indicated Urine Cult Not Indicated; RBC Urine 10-30/HPF (0-5/HPF); Squamous Epithelial Cell Urine 0-1 /HPF (0-5/HPF); WBC Urine 0-1/HPF (0-5/HPF)
[2020-08-04 10:00] LABS: Alanine Aminotransferase 14 IU/L (<50); Albumin 3.9 g/dL (3.5-5.0); Albumin Globulin Ratio 1.4 (1.0-2.8); Alkaline Phosphatase 102 U/L (38-126); Aspartate Aminotransferase 15 IU/L (17-59); BUN Creatinine Ratio 19.4 (6-22); Bilirubin Total 0.7 mg/dL (0.2-1.3); Blood Urea Nitrogen 18 mg/dL (9-20); Calcium 9.2 mg/dL (8.4-10.2); Carbon Dioxide 21 mmol/L (22-32); Chloride 87 mmol/L (98-107); Creatine Kinase 40 U/L (55-170); Estimated Glomerular Filt Rate > 60.0 mL/min (>60); Globulin 2.8 g/dL (1.7-4.1); HEMOLYSIS < 15 (0-50); Lipase 284 U/L (23-300); Potassium 4.7 mmol/L (3.4-5.1); Sodium 124 mmol/L (137-145); Total Protein 6.7 g/dL (6.3-8.2)
[2020-08-04 10:09] LABS: NT-proBNP (BNP-Adult 18+) 493 pg/mL (<450)
[2020-08-04 10:11] LABS: Glucose 715 mg/dL (80-110)
[2020-08-04 10:12] LABS: Troponin I < 0.012 ng/mL (0.01-0.034)
--- NOTE | 2020-08-04 10:22 | PC.NURSE ---
critical glucose @ 715. Dr Rojas made aware. 1L NS infusing at this time.
[2020-08-04] MEDS: SODIUM CHLORIDE 0.9% 1,000 ML 1000 ML IV (10:26)
[2020-08-04 11:08] LABS: Hemoglobin A1C% w Est Avg Glu > 14.0 % (4.0-6.0)
== END 2020-08-04 13:00 | disposition home or self-care (01) ==
PROVIDERS: Emergency Provider Emergency Medicine; PCP Student in an Organized Health Care Education/Training Program
DX: N20.0 Calculus of kidney (principal); E11.65 Type 2 diabetes mellitus with hyperglycemia
CPT/HCPCS: 36415; 51798; 71045; 74177; 80053; 81001; 82550; 83036; 83690; 83880; 84484; 85025; 93005; 96360; 99284; Q9967

== ENCOUNTER 2020-08-06 03:12 | Inpatient (IN) | payer MEDICARE, MEDICAID, SELFPAY ==
[2020-08-06] VITALS (11 sets, daily range): BP systolic 98–157; BP diastolic 55–92; PULSE 88–116; RESP 16–27; TEMP 36.4–37.1; O2SAT 95–99; BMI 33.5; BMI 28.5
[2020-08-06] MEDS: SODIUM CHLORIDE 0.9% 1,000 ML 1000 ML IV (03:20)
--- NOTE | 2020-08-06 03:21 | DI.RAD.S_ITS ---
PROCEDURE: XR ACUTE ABDOMEN SERIES INDICATIONS: Abdominal pain TECHNIQUE: One view chest and two views of the abdomen were acquired. COMPARISON: None. FINDINGS: Surgical changes and devices: Mediastinum wires and surgical clips in the thyroid fossa. Cholecystectomy clips. Chest: Lungs are clear. Heart size is normal. No pleural effusions. No pneumoperitoneum. Abdomen: Bowel gas pattern is nonobstructive. No suspicious calcifications. Visualized solid organ contours appear normal. Bones: No suspicious bony lesions. IMPRESSION: 1. Nonobstructive bowel gas pattern. If patient's symptoms persist or worsen, consider CT scan of the abdomen/pelvis for further evaluation. 2. No acute cardiopulmonary disease process. Dictated by: Agata Zuluaga MD, PhD on 08/06/2020 at 8:11 Approved by: Agata Zuluaga MD, PhD on 08/06/2020 at 8:12
--- NOTE | 2020-08-06 03:21 | ED.WEAKNESS ---
HPI - Weakness General Chief complaint: Weakness Stated complaint: Weakness Time Seen by Provider: 08/06/20 03:15 Source: patient and EMS Mode of arrival: EMS Limitations: no limitations History of Present Illness HPI Narrative: 75-year-old male nonsmoker with history of coronary artery disease, hypertension, hyperlipidemia, kidney stones and newly diagnosed diabetes presents by EMS for the 2nd time in 2 days with increased weakness, fatigue, generalized abdominal pain. Patient came yesterday due to urinary frequency and states that he has been getting up upwards of 20 times per day to urinate. He states he is unsure exactly how long this is going on but on the whole he feels terrible. He states he has had a very poor appetite for quite some time and admits to eating nothing but ice cream because he is unable to eat. He states that he his had decreased bowel movements for the past few days and is concerned that he may have a bowel obstruction. He had a very thorough evaluation yesterday which demonstrated a initial blood sugar over 700 which improved over the visit, A1c over [address] of the abdomen pelvis which noted a 5 mm proximal stoneOn the left with very mild hydro. He showed no signs of infection and demonstrated improvement over the visit. He was started on metformin and encouraged to follow closely with his primary care provider. Related Data Home Medications Medication Instructions Recorded Confirmed metoprolol tartrate 25 mg tablet 25 mg PO BID tab 05/24/20 05/24/20 Previous Rx's Medication Instructions Recorded aspirin 81 mg PO Q DAY #30 tab 06/10/16 clobetasol 0.05 % topical ointment 1 applictn TOP BID #30 gram 03/02/19 nystatin 100,000 unit/gram topical 1 applictn TOP BID #30 gram 04/07/19 powder clopidogrel 75 mg tablet 75 mg PO QDAY #90 tab 11/02/19 omeprazole 20 mg capsule,delayed See Rx Instructions .ROUTE 02/23/20 release .COMPLEX #180 capsule doxazosin 8 mg tablet 8 mg PO BEDTIME #90 each 02/24/20 finasteride 5 mg tablet 5 mg PO DAILY #90 tab 02/24/20 levothyroxine 175 mcg tablet 175 mcg PO DAILY #90 tab 02/24/20 amitriptyline 10 mg tablet See Rx Instructions .ROUTE 06/05/20 .COMPLEX #90 tablet atorvastatin 80 mg tablet 80 mg PO HS #90 tab 06/05/20 lisinopril 5 mg tablet 5 mg PO QDAY #90 tab 06/05/20 oxybutynin chloride 10 mg 10 mg PO DAILY #90 tab 07/04/20 tablet,extended release 24 hr metformin 500 mg PO BID #30 tab 08/04/20 Allergies Allergy/AdvReac Type Severity Reaction Status Date / Time Sulfa (Sulfonamide Allergy Unknown Verified 08/04/20 09:18 Antibiotics) [SULFA (SULFONAMIDE ANTIBIOTICS)] Review of Systems Constitutional Constitutional: Denies chills, Reports fatigue, Denies fever(s), Denies frequent falls, Denies lethargy and Reports weakness Eyes Eyes: Denies change in vision, Denies eye discharge, Denies irritation and Denies loss of vision ENT Ears, Nose, Mouth, and Throat: Denies change in voice, Denies dizziness, Denies neck pain, Denies sore throat and Denies throat swelling Cardiovascular Cardiovascular: Denies chest pain, Denies irregular heart rhythm, Denies lightheadedness, Denies palpitations, Denies dyspnea, Denies dyspnea on exertion and Denies orthopnea Respiratory Respiratory: Denies cough, Denies dyspnea, Denies dyspnea on exertion and Denies wheezing Gastrointestinal Gastrointestinal: Reports abdominal pain, Denies change in bowel habits, Reports constipation, Denies diarrhea, Denies nausea and Denies vomiting Genitourinary Genitourinary: Reports nocturia and Reports urinary frequency Genitourinary: Reports urinary frequency and Reports nocturia Musculoskeletal Musculoskeletal: Denies neck pain and Denies numbness Integumentary/Breasts Skin/Breast: Denies pruritus, Denies erythema, Denies rash and Denies wounds Neurologic Neurologic: Denies behavioral changes, Denies confusion, Denies dizziness, Denies frequent falls, Denies loss of vision, Denies numbness and Reports weakness Psychiatric Psychiatric: Denies anxiety, Denies behavioral changes, Denies confusion, Denies depression, Denies homicidal ideation and Denies suicidal ideation Endocrine Endocrine: Reports fatigue, Denies flushing and Denies palpitations Hematologic/Lymphatic Hematologic/Lymphatic: Denies easy bruising Allergic/Immunologic Allergic/Immunologic: Denies urticaria, Denies throat swelling and Denies wheezing Patient History Medical History Acquired hypothyroidism (03/30/15) Benign non-nodular prostatic hyperplasia with lower urinary tract symptoms (03/30/15) Bullous impetigo Chickenpox Coronary artery disease involving [place] coronary artery of [place] heart without angina pectoris (03/30/15) Degenerative disc disease, lumbar Diet-controlled type 2 diabetes mellitus Essential hypertension (03/30/15) Foraminal stenosis of lumbosacral region (07/02/17) Fracture of medial condyle of femur Gastroesophageal reflux disease without esophagitis (03/30/15) Kidney stone on left side Kidney stones Left foot drop (12/30/16) Measles Mixed hyperlipidemia (03/30/15) Obstructive sleep apnea of adult (~2003) Primary insomnia (~2003) Primary osteoarthritis of both hips (07/02/17) Primary osteoarthritis of left knee (07/02/17) Sciatica Surgical History S/P angioplasty with stent S/P appendectomy (2007) S/P coronary artery bypass graft x 4 S/P partial thyroidectomy (~1999) S/P vasectomy Family History Brother Prostate cancer Mother Diabetes mellitus Hypertension Stroke Father Prostate cancer Brother Prostate cancer Social History details: Single, but with same partner 35+ years, has children and now grandkids occupational status: previously employed Smoking Status: Never smoker alcohol intake: former substance use type: does not use Smoking Status: Never smoker alcohol intake frequency: 0-2 drinks per day Substance Use Type: does not use Exam Narrative Exam Narrative: GENERAL: [75] year old patient appears stated age. Well-nourished, well-developed patient, in mild distress. HEAD: Atraumatic. Normocephalic. EYES: Pupils equal round and reactive. Extraocular motions intact. No scleral icterus. No injection or drainage. ENT: Dry mucous membranes Nose without bleeding, purulent drainage. Throat without erythema, tonsillar hypertrophy or exudate. Airway patent. NECK: Trachea midline. Non tender CARDIOVASCULAR: Tachycardic but regular rhythm without murmurs, gallops, or rubs. RESPIRATORY: Clear to auscultation. Breath sounds equal bilaterally. No wheezes, rales, or rhonchi. GASTROINTESTINAL: Abdomen soft, mild generalized tenderness, nondistended. Decreased bowel sounds throughout EXTREMITIES: No edema or joint tenderness. Bilateral lower extremities cold to the touch, no pain, no swelling BACK: Nontender without deformity or crepitance. No flank tenderness. NEURO: AOx3. SKIN: Poor skin turgor No rash or erythema of visible areas Initial Vital Signs Initial Vital Signs: Vital Signs Temperature 98.1 F 08/06/20 03:20 Pulse Rate 116 H 08/06/20 03:20 Respiratory Rate 22 08/06/20 03:20 Blood Pressure 150/85 H 08/06/20 03:20 Pulse Oximetry 95 08/06/20 03:20 Course Orders Ordered: ED Orders 08/06/20 03:15 Complete Blood Count AUTO DIFF Stat 08/06/20 03:20 COVID19 - ADMIT ([facility]PER[facility] swab/PCR) Stat Comprehensive Metabolic Panel Stat Lactate (Lactic Acid) Stat Lipase Stat Magnesium Stat NT-proBNP (BNP-Adult 18+) Stat Troponin & CK Cardiac Panel Stat Venous Blood Gas Stat 08/06/20 03:21 XR acute abdomen series Stat EKG-12 Lead Stat 08/06/20 03:23 Ketones (Beta-Hydroxybutyrate) Stat Sodium Chloride (Normal Saline 0.9%) 1,000 mls @ 1,000 mls/hr IV BOLUS ONE Stop: 08/06/20 04:19 INSULIN DRIP PREMIX (Myxredlin Drip Premix) 100 unit in 100 mls @ 6 mls/hr IV TITRATE CHRISTOPHER; Protocol Vital Signs Vital signs: Vital Signs - 8 hr 08/06/20 03:20 08/06/20 03:30 Temperature 98.1 F Pulse Rate 116 H 105 H Respiratory Rate 22 27 H Blood Pressure 150/85 H 104/59 L Pulse Oximetry 95 99 MDM - Weakness Lab Data Result diagrams: 08/06/20 03:15 08/06/20 03:15 Labs: Lab Results 08/06/20 08/06/20 08/06/20 Range/Units 03:15 03:15 03:15 WBC 10.1 (4.5-11.0) X10^3/uL RBC 4.52 (4.5-5.9) X10^6/uL Hgb 13.6 (13.5-17.5) g/dL Hct 41.8 (41-53) % MCV 92.5 (80-100) fL MCH 30.1 (26-34) PG MCHC 32.6 (30-36) % RDW 16.6 H (11.6-14.8) % Plt Count 429 H (150-400) X10^3/uL Neut % (Auto) 63.6 (50-75) % Lymph % (Auto) 27.3 (25-40) % Morgan % (Auto) 7.5 (3-14) % Eos % (Auto) 1.1 L (2-4) % Baso % (Auto) 0.5 (0-2) % Neut # (Auto) 6400 (6795-2824) /uL Lymph # (Auto) 2800 (2379-2567) /uL Morgan # (Auto) 800 (0-900) /uL Eos # (Auto) 100 (0-450) /uL Baso # (Auto) 100 (0-100) /uL VBG pH (7.33-7.43) VBG pCO2 (45-50) mmHg VBG pO2 (35-45) mmHg VBG HCO3 (23-28) mmol/L VBG Total CO2 (24-29) mmol/L VBG O2 Saturation (70-75) % VBG Base Excess (0-4) mmol/L Sodium 133 L (137-145) mmol/L Potassium 4.8 (3.4-5.1) mmol/L Chloride 95 L (98-107) mmol/L Carbon Dioxide 17 L (22-32) mmol/L BUN 18 (9-20) mg/dL Creatinine 0.98 (0.66-1.25) mg/dL Estimated GFR > 60.0 (>60) mL/min BUN/Creatinine Ratio 18.4 (6-22) Glucose 514 H* (80-110) mg/dL Calcium 9.6 (8.4-10.2) mg/dL Magnesium 2.5 H (1.6-2.3) mg/dL Total Bilirubin 0.6 (0.2-1.3) mg/dL AST 15 L (17-59) IU/L ALT 15 (<50) IU/L Alkaline Phosphatase 105 (38-126) U/L Total Creatine Kinase 46 L (55-170) U/L CK-MB (CK-2) TNP CK-MB (CK-2) Rel Index TNP Troponin I < 0.012 (0.01-0.034) ng/mL NT-Pro-B Natriuret Pep 764 H (<450) pg/mL Total Protein 7.7 (6.3-8.2) g/dL Albumin 4.4 (3.5-5.0) g/dL Globulin 3.3 (1.7-4.1) g/dL Albumin/Globulin Ratio 1.3 (1.0-2.8) Lipase 229 (23-300) U/L Ketones 6.40 H (<0.27) mmol/L 08/06/ Range/Units 03:27 WBC (4.5-11.0) X10^3/uL RBC (4.5-5.9) X10^6/uL Hgb (13.5-17.5) g/dL Hct (41-53) % MCV (80-100) fL MCH (26-34) PG MCHC (30-36) % RDW (11.6-14.8) % Plt Count (150-400) X10^3/uL Neut % (Auto) (50-75) % Lymph % (Auto) (25-40) % Morgan % (Auto) (3-14) % Eos % (Auto) (2-4) % Baso % (Auto) (0-2) % Neut # (Auto) (2681-9958) /uL Lymph # (Auto) (2981-6258) /uL Morgan # (Auto) (0-900) /uL Eos # (Auto) (0-450) /uL Baso # (Auto) (0-100) /uL VBG pH 7.32 L (7.33-7.43) VBG pCO2 36.4 L (45-50) mmHg VBG pO2 19 L (35-45) mmHg VBG HCO3 19 L (23-28) mmol/L VBG Total CO2 20 L (24-29) mmol/L VBG O2 Saturation 26 L (70-75) % VBG Base Excess -7.0 L (0-4) mmol/L Sodium (137-145) mmol/L Potassium (3.4-5.1) mmol/L Chloride (98-107) mmol/L Carbon Dioxide (22-32) mmol/L BUN (9-20) mg/dL Creatinine (0.66-1.25) mg/dL Estimated GFR (>60) mL/min BUN/Creatinine Ratio (6-22) Glucose (80-110) mg/dL Calcium (8.4-10.2) mg/dL Magnesium (1.6-2.3) mg/dL Total Bilirubin (0.2-1.3) mg/dL AST (17-59) IU/L ALT (<50) IU/L Alkaline Phosphatase (38-126) U/L Total Creatine Kinase (55-170) U/L CK-MB (CK-2) CK-MB (CK-2) Rel Index Troponin I (0.01-0.034) ng/mL NT-Pro-B Natriuret Pep (<450) pg/mL Total Protein (6.3-8.2) g/dL Albumin (3.5-5.0) g/dL Globulin (1.7-4.1) g/dL Albumin/Globulin Ratio (1.0-2.8) Lipase (23-300) U/L Ketones (<0.27) mmol/L Point of Care Testing Glucose POC 464 Urine Dip Bedside Urine Glucose 1000 mg/dl Bedside Urine Bilirubin - Negative Bedside Urine Ketone +++ 80 Urine Specific [place] 1.015 Bedside Urine Occult Blood +/- Bedside Urine pH 6.0 Bedside Urine Protein - Negative Bedside Urine Urobilinogen - Negative Bedside Urine Nitrite - Negative Bedside Urine Leukocytes - Negative Esterase MDM Narrative Medical decision making narrative: Patient with newly diagnosed diabetes returns for the 2nd time in 2 days and is much worse today. He is profoundly weak and dehydrated. He has poor appetite and unable to get around at home due to his weakness. Is significantly dehydrated on physical exam, tachycardic with a worsening anion gap, hyperglycemia, ketones. Patient requires significant volume of fluid replacement, insulin drip, close observation and management of electrolyte abnormalities and stabilization of his condition. The patient understands and agrees with the plan. Discharge Plan Departure Patient Disposition: Admitted as Observation Clinical Impression: Diabetes mellitus, new onset, Acute dehydration, Weakness Admit Date/Time: 08/06/20 03:58 Admit Provider: Yong Quan
[2020-08-06 03:37] LABS: Add Manual Diff / Slide Review NO; Basophils Absolute Auto 100 /uL (0-100); Basophils Percent Auto 0.5 % (0-2); Eosinophils Absolute Auto 100 /uL (0-450); Eosinophils Percent Auto 1.1 % (2-4); Hematocrit 41.8 % (41-53); Hemoglobin 13.6 g/dL (13.5-17.5); Lymphocytes Absolute Auto 2800 /uL (1100-4500); Lymphocytes Percent Auto 27.3 % (25-40); Mean Corpuscular HGB Conc 32.6 % (30-36); Mean Corpuscular Hemoglobin 30.1 PG (26-34); Mean Corpuscular Volume 92.5 fL (80-100); Monocytes Absolute Auto 800 /uL (0-900); Monocytes Percent Auto 7.5 % (3-14); Neutrophils Absolute Auto 6400 /uL (1500-7000); Neutrophils Percent Auto 63.6 % (50-75); Platelet Count 429 X10^3/uL (150-400); Red Blood Cell Count 4.52 X10^6/uL (4.5-5.9); Red Cell Distribution Width 16.6 % (11.6-14.8); White Blood Cell Count 10.1 X10^3/uL (4.5-11.0)
[2020-08-06 03:39] LABS: Alanine Aminotransferase 15 IU/L (<50); Albumin 4.4 g/dL (3.5-5.0); Albumin Globulin Ratio 1.3 (1.0-2.8); Alkaline Phosphatase 105 U/L (38-126); Aspartate Aminotransferase 15 IU/L (17-59); BUN Creatinine Ratio 18.4 (6-22); Bilirubin Total 0.6 mg/dL (0.2-1.3); Blood Urea Nitrogen 18 mg/dL (9-20); Calcium 9.6 mg/dL (8.4-10.2); Carbon Dioxide 17 mmol/L (22-32); Chloride 95 mmol/L (98-107); Creatine Kinase 46 U/L (55-170); Estimated Glomerular Filt Rate > 60.0 mL/min (>60); Globulin 3.3 g/dL (1.7-4.1); HEMOLYSIS < 15 (0-50); Lipase 229 U/L (23-300); Magnesium 2.5 mg/dL (1.6-2.3); Potassium 4.8 mmol/L (3.4-5.1); Sodium 133 mmol/L (137-145); Total Protein 7.7 g/dL (6.3-8.2)
[2020-08-06 03:49] LABS: HCO3 VBG 19 mmol/L (23-28); Oxygen Saturation VBG 26 % (70-75); PCO2 VBG 36.4 mmHg (45-50); PO2 VBG 19 mmHg (35-45); Total CO2 VBG 20 mmol/L (24-29); pH VBG 7.32 (7.33-7.43)
[2020-08-06 03:50] LABS: Glucose 514 mg/dL (80-110)
[2020-08-06 03:52] LABS: NT-proBNP (BNP-Adult 18+) 764 pg/mL (<450); Troponin I < 0.012 ng/mL (0.01-0.034)
[2020-08-06] MEDS: INSULIN DRIP PREMIX 100 UNIT/100 ML PLAST..BAG 6 UNIT IV (04:03)
[2020-08-06 04:15] LABS: Lactate (Lactic Acid) 1.6 mmol/L (0.7-2.1)
[2020-08-06 04:18] LABS: COVID19 - ADMIT (NP swab/PCR) Negative (Negative)
[2020-08-06 04:27] LABS: Bacteria Urine None Seen; WBC Urine None Seen (0-5/HPF)
[2020-08-06 04:35] LABS: Culture Indicated Urine Cult Not Indicated; RBC Urine 0-1/HPF (0-5/HPF)
--- NOTE | 2020-08-06 05:38 | PM.HP.1 ---
History of Present Illness History of Present Illness Date Patient Seen: 08/06/20 Time Patient Seen: 05:38 Chief complaint: Weakness Narrative: Mr. Stephan Cook this 75-year-old male patient with a past medical history significant for coronary artery disease (see S/P CABG x4, multiple PCI, stents) congestive failure with preserved ejection fraction, hypertension, hyperlipidemia, diet-controlled diabetes, BPH with urinary symptoms, HERMELINDA on CPAP and osteoarthritis who presents to the ER with complaints of frequent urination. Patient was seen in the ER yesterday for similar complaint and diagnosed with hyperglycemia with blood sugar of 715. Patient was treated with rehydration and started on metformin and discharged to home with a prescription for metformin 500 mg twice daily which was not started. the patient reports frequent small voids ongoing for the last 3 days. Yesterday on the CT scan a 5 mm stone was identified in the proximal ureter with perinephric stranding and blood in the urine however no leukocyte esterase or nitrites. Patient additionally reports that became quite ill since seen Dr. Macdonald in May and believes he had COVID-19 infection. Reports he has felt very poorly since and had lost his sense of smell and taste as well as appetite. He reports eating ice cream and drinking copious water but was unable to quench his thirst. He states he was told he was a borderline diabetic previously and had not been checking blood sugars. The patient reports no complaints of fevers or chills, headaches or dizziness, falls or trauma. He has had no nasal congestion or sore throat.Denies complaints of chest pain palpitations and reports no shortness of breath cough or wheezing. He denies epigastric or abdominal pain and has had no nausea vomiting. The patient states he has not had a bowel movement in 4 days and feels constipated. CT scan yesterday did not identify significant stool loading. The patient reports that his left leg has diminished sensation since he had a fractured femur however his right foot has recently had sharp shooting pains. Upon arrival the patient is afebrile with temperature 98.1?, heart rate 116, blood pressure 150/85, respirations of 22 saturating 95% on room air. Chest x-ray abdominal films were obtained which found no acute findings. Patient had a CT of the abdomen pelvis shows some which found a 5 mm proximal ureteral stone with mild hydronephrosis perinephric stranding, colonic and duodenal diverticulosis. Urinalysis yesterday for the found a specific gravity of 1.005, positive glucose, ketones and blood but negative for nitrites or leukocyte esterase. Twelve lead EKG today is sinus tachycardia rate 105 without ectopy or block, no ST or T-wave changes and no Q-waves, unchanged from previous tracing. On laboratory analysis today the patient has white count of 10.1 with no shift, hemoglobin of 13.6, hematocrit of 41.8, platelets 429. He is mildly hyponatremic with a sodium of 133, potassium is 4.8 and magnesium is 2.5. He has a CHICK GRADER of 17. His BUN is 18 and creatinine 0.98. His nonfasting glucose is 514. His liver functions are all within normal limits. He has lactic acid 1.6. On VBG has a pH of 7.32, bicarb of 19 with a base excess of -7. He has a total CK of 46 and troponin of less than 0.012. His proBNP is elevated and sevens 64. Serum ketones are 6.4. The hemoglobin A1c was obtained yesterday which was greater than 14. The patient is admitted to the hospitalist service for diabetic ketoacidosis. Patient History Medical History (Updated 08/06/20 @ 04:41 by DEMARIO Lenz) Acquired hypothyroidism (03/30/15) Benign non-nodular prostatic hyperplasia with lower urinary tract symptoms (03/30/15) Bullous impetigo Chickenpox Coronary artery disease involving [place] coronary artery of [place] heart without angina pectoris (03/30/15) Degenerative disc disease, lumbar Diabetes type 2, uncontrolled Essential hypertension (03/30/15) Foraminal stenosis of lumbosacral region (07/02/17) Fracture of medial condyle of femur Gastroesophageal reflux disease without esophagitis (03/30/15) Kidney stone on left side Kidney stones Left foot drop (12/30/16) Measles Mixed hyperlipidemia (03/30/15) Obstructive sleep apnea of adult (~2003) Primary insomnia (~2003) Primary osteoarthritis of both hips (07/02/17) Primary osteoarthritis of left knee (07/02/17) Sciatica Surgical History (Updated 08/06/20 @ 04:41 by DEMARIO Lenz) S/P angioplasty with stent S/P appendectomy (2007) S/P coronary artery bypass graft x 4 S/P partial thyroidectomy (~1999) S/P vasectomy Status post coronary angioplasty Family & Social History Family History Brother Prostate cancer Mother Diabetes mellitus Hypertension Stroke Father Prostate cancer Brother Prostate cancer Safety & Behavioral: Feels Safe in Current Yes Environment Tobacco & Substance use: Smoking Status Never smoker alcohol intake former alcohol intake frequency 0-2 drinks per day Substance Use Type does not use Meds Home Medications and Allergies Home Medications Medication Instructions Recorded Confirmed Type aspirin 81 mg PO Q DAY #30 tab 06/10/16 05/24/20 Rx clobetasol 0.05 % topical ointment 1 applictn TOP BID #30 gram 03/02/19 05/24/20 Rx nystatin 100,000 unit/gram topical 1 applictn TOP BID #30 gram 04/07/19 05/24/20 Rx powder clopidogrel 75 mg tablet 75 mg PO QDAY #90 tab 11/02/19 05/24/20 Rx omeprazole 20 mg capsule,delayed See Rx Instructions .ROUTE 02/23/20 05/24/20 Rx release .COMPLEX #180 capsule doxazosin 8 mg tablet 8 mg PO BEDTIME #90 each 02/24/20 05/24/20 Rx finasteride 5 mg tablet 5 mg PO DAILY #90 tab 02/24/20 05/24/20 Rx levothyroxine 175 mcg tablet 175 mcg PO DAILY #90 tab 02/24/20 05/24/20 Rx metoprolol tartrate 25 mg tablet 25 mg PO BID tab 05/24/20 05/24/20 History amitriptyline 10 mg tablet See Rx Instructions .ROUTE 06/05/20 Rx .COMPLEX #90 tablet atorvastatin 80 mg tablet 80 mg PO HS #90 tab 06/05/20 Rx lisinopril 5 mg tablet 5 mg PO QDAY #90 tab 06/05/20 Rx oxybutynin chloride 10 mg 10 mg PO DAILY #90 tab 07/04/20 Rx tablet,extended release 24 hr metformin 500 mg PO BID #30 tab 08/04/20 Rx Allergies Allergy/AdvReac Type Severity Reaction Status Date / Time Sulfa (Sulfonamide Allergy Unknown Verified 08/04/20 09:18 Antibiotics) [SULFA (SULFONAMIDE ANTIBIOTICS)] Review of Systems Review of Systems ROS: Yes All systems reviewed with the patient and are negative except as otherwise documented Exam Vital Signs (past 8 hours): - 08/06/20 03:20 08/06/20 03:30 Temperature 98.1 F Pulse Rate 116 H 105 H Respiratory Rate 22 27 H Blood Pressure 150/85 H 104/59 L Pulse Oximetry 95 99 Oxygen Delivery Method Room Air Narrative Exam Narrative: GENERAL APPEARANCE: well developed, well nourished, in no acute distress. HEENT: Normocephalic, PERRLA, conjunctiva clear, EOMs intact without nystagmus, no sinus tenderness to percussion, no rhinorrhea, mucous membranes are pink and dry with cobblestone tongue NECK/THYROID: neck supple, no JVD, no carotid bruit, no thyromegaly, trachea midline. LYMPH NODES: no cervical or supraclavicular lymphadenopathy. SKIN: [place], warm and dry, no visible lesions, rashes, ulcerations. HEART: Tachycardic rate, regular rhythm, S1-S2, no murmur, no rubs or gallops, delayed capillary refill of 4 seconds bilateral lower extremities, distal bilateral lower legs cool to touch, no edema . LUNGS: bibasilar fine crackles, no coarseness orwheezing, no cough present. CHEST: Symmetrical movement, no accessory muscle use, good tidal volume. ABDOMEN: Soft, no distention, no abdominal tenderness, no organomegaly, no flank tenderness, active bowel tones. EXTREMITIES: moves all extremities, strength is 5/5 and symmetrical, no Clubbing or cyanosis. NEUROLOGIC: AAO x4, no focal neurologic deficits, cranial nerves II-XII grossly intact, diminished sensation left leg, hearing grossly normal to speech. PSYCH: briskly responsive limited insight, cooperative, appropriate with stable behavior Objective Labs Result Diagrams: 08/06/20 03:15 08/06/20 03:15 Labs: Laboratory Results - last 24 hr 08/06/20 08/06/20 08/06/20 03:15 03:15 03:15 WBC 10.1 RBC 4.52 Hgb 13.6 Hct 41.8 MCV 92.5 MCH 30.1 MCHC 32.6 RDW 16.6 H Plt Count 429 H Neut % (Auto) 63.6 Lymph % (Auto) 27.3 [place] % (Auto) 7.5 Eos % (Auto) 1.1 L Baso % (Auto) 0.5 Neut # (Auto) 6400 Lymph # (Auto) 2800 [place] # (Auto) 800 Eos # (Auto) 100 Baso # (Auto) 100 VBG pH VBG pCO2 VBG pO2 VBG HCO3 VBG Total CO2 VBG O2 Saturation VBG Base Excess Sodium 133 L Potassium 4.8 Chloride 95 L Carbon Dioxide 17 L BUN 18 Creatinine 0.98 Estimated GFR > 60.0 BUN/Creatinine Ratio 18.4 Glucose 514 H* Lactate Calcium 9.6 Magnesium 2.5 H Total Bilirubin 0.6 AST 15 L ALT 15 Alkaline Phosphatase 105 Total Creatine Kinase 46 L CK-MB (CK-2) TNP CK-MB (CK-2) Rel Index TNP Troponin I < 0.012 NT-Pro-B Natriuret Pep 764 H Total Protein 7.7 Albumin 4.4 Globulin 3.3 Albumin/Globulin Ratio 1.3 Lipase 229 Urine RBC Urine WBC Urine Bacteria Ur Culture Indicated? Ketones 6.40 H SARS-CoV-2 (PCR) 08/06/20 08/06/20 08/06/20 03:21 03:22 03:27 WBC RBC Hgb Hct MCV MCH MCHC RDW Plt Count Neut % (Auto) Lymph % (Auto) [place] % (Auto) Eos % (Auto) Baso % (Auto) Neut # (Auto) Lymph # (Auto) [place] # (Auto) Eos # (Auto) Baso # (Auto) VBG pH 7.32 L VBG pCO2 36.4 L VBG pO2 19 L VBG HCO3 19 L VBG Total CO2 20 L VBG O2 Saturation 26 L VBG Base Excess -7.0 L Sodium Potassium Chloride Carbon Dioxide BUN Creatinine Estimated GFR BUN/Creatinine Ratio Glucose Lactate Calcium Magnesium Total Bilirubin AST ALT Alkaline Phosphatase Total Creatine Kinase CK-MB (CK-2) CK-MB (CK-2) Rel Index Troponin I NT-Pro-B Natriuret Pep Total Protein Albumin Globulin Albumin/Globulin Ratio Lipase Urine RBC 0-1/hpf D Urine WBC None seen Urine Bacteria None seen Ur Culture Indicated? Cult not indicated Ketones SARS-CoV-2 (PCR) Negative 08/06/20 03:55 WBC RBC Hgb Hct MCV MCH MCHC RDW Plt Count Neut % (Auto) Lymph % (Auto) [place] % (Auto) Eos % (Auto) Baso % (Auto) Neut # (Auto) Lymph # (Auto) [place] # (Auto) Eos # (Auto) Baso # (Auto) VBG pH VBG pCO2 VBG pO2 VBG HCO3 VBG Total CO2 VBG O2 Saturation VBG Base Excess Sodium Potassium Chloride Carbon Dioxide BUN Creatinine Estimated GFR BUN/Creatinine Ratio Glucose Lactate 1.6 Calcium Magnesium Total Bilirubin AST ALT Alkaline Phosphatase Total Creatine Kinase CK-MB (CK-2) CK-MB (CK-2) Rel Index Troponin I NT-Pro-B Natriuret Pep Total Protein Albumin Globulin Albumin/Globulin Ratio Lipase Urine RBC Urine WBC Urine Bacteria Ur Culture Indicated? Ketones SARS-CoV-2 (PCR) Assessment & Plan Assessment & Plan narrative: This patient is a 75-year-old male patient with a past medical history significant for coronary artery disease (see S/P CABG x4, multiple PCI, stents) congestive failure with preserved ejection fraction, hypertension, hyperlipidemia, diet-controlled diabetes, BPH with urinary symptoms, HERMELINDA on CPAP and osteoarthritis who presents to the ER with complaints of continuing frequent urination following being evaluated yesterday in the emergency department found to be hyperglycemia with blood sugar of 715. The patient was evaluated, rehydrated and discharged home with a prescription for metformin 500 mg twice daily which does not appear to have been started. 1. Diabetic ketoacidosis, acute, present on admission, active -patient previously diagnosed with diet-controlled diabetes. Patient seen in the ER yesterday with serum glucose is 714 and a hemoglobin A1c of greater than 14. Today and initial labs serum glucose is 514. -patient returns today for continued complaints of frequent urination is found to be significantly dehydrated with tachycardia and serum ketones of 6.4. -patient received 1 L of normal saline in the emergency department, ordered normal saline 125 cc/hour in the setting of CAD and congestive heart failure. -ordered D5 1/2 normal saline at 100 cc/hour 1 glucose is less than 200. -patient started on insulin drip which will be titrated per protocol. -ordered follow-up labs with BMP and magnesium and phosphorus. -patient will be NPO 2. Chronic congestive heart failure with preserved ejection fraction, chronic, stable -patient has a complex cardiac history with CABG and multiple PCIs and stent. Most recent echo (2018) found EF to be 60-65%. -patient with elevated proBNP at 764, chest x-ray without evidence of congestive failure. -will be conservative in rehydration to prevent complications with normal saline at 125 cc/hour followed by D5 1/2 normal saline at 100 cc/hour. -will continue routine home medications of lisinopril 5 mg daily and metoprolol tartrate 25 mg twice daily. -will recheck proBNP as patient is rehydrated. 3. Coronary artery disease, chronic, stable. -patient has a complex cardiac history with CABG and multiple PCIs and stent. -patient denies complaints of chest pain. -sinus tachycardia rate 105 without ectopy or block, no ST or T-wave changes and no Q-waves, unchanged from previous tracing. -will continue aspirin 81 mg and clopidogrel 75 mg daily. -telemetry. 4. Hypertension, chronic, stable -patient has a blood pressure of 150/85 upon arrival to the ER. -will continue routine medications of lisinopril and metformin as above 5. Hyperlipidemia, chronic, stable. -continue current home regimen of atorvastatin 80 mg daily. 6. Acquired hypothyroidism, chronic, stable. -patient status post partial thyroidectomy. -continue home regimen of levothyroxine 175 mcg daily. -will check TSH and free T4. VTE prophylaxis: Enoxaparin IV fluid: Normal saline 125 cc per Diet: NPO Code status: Full code, the patient designates his daughter Eboni to be his surrogate decision maker. The patient is admitted to the hospital due to the severity of his ongoing symptoms unresolved with outpatient treatment. The patient is admitted to the ICU for IV insulin infusion requiring close monitoring prevent complications and untoward events. Critical care time: 40 minutes COVID-19 COVID-19 status: Negative Result date/Date tested (Pos, Neg/Pending): 08/06/20 Scores GCS [place] coma scale eye opening: Spontaneous [place] coma scale verbal response: Orientated [place] coma scale motor response: Obey commands [place] coma scale total score: 15
[2020-08-06 06:03] LABS: Free T4, Direct Thyroxine 2.03 ng/dL (0.78-2.19)
[2020-08-06 06:17] LABS: Thyroid Stimulating Hormone 1.65 uIU/mL (0.47-4.68)
[2020-08-06] MEDS: SODIUM CHLORIDE 0.9% 1,000 ML 125 ML IV (06:39)
--- NOTE | 2020-08-06 07:17 | PC.NURSE ---
Admit Note-Patient brought to ICU room 229 via stretcher, A/Ox4, transferred to bed with SBA. NS bolus infusing with insulin gtt at 6units/hr, CBG 378, will do hourly checks. SR/ST, VSS, RA SpO2 >94%. Continues to have lower abdominal discomfort and voiding small amount urine frequently. Patient medication sent to pharmacy. Bed alarm on, call light in reach.
[2020-08-06] MEDS: DEXTROSE 5%-0.45% NS 1,000 ML 125 ML IV (08:46)
[2020-08-06] MEDS: BISACODYL 10 MG SUPP PR (08:47)
[2020-08-06 08:59] LABS: Phosphorous 1.7 mg/dL (2.3-3.7)
[2020-08-06 09:01] LABS: BUN Creatinine Ratio 19.3 (6-22); Blood Urea Nitrogen 17 mg/dL (9-20); Calcium 9.3 mg/dL (8.4-10.2); Carbon Dioxide 19 mmol/L (22-32); Chloride 104 mmol/L (98-107); Estimated Glomerular Filt Rate > 60.0 mL/min (>60); Glucose 145 mg/dL (80-110); HEMOLYSIS < 15 (0-50); Magnesium 2.4 mg/dL (1.6-2.3); Potassium 3.9 mmol/L (3.4-5.1); Sodium 137 mmol/L (137-145)
[2020-08-06] MEDS: ENOXAPARIN 40 MG/0.4 ML SYRINGE SUBCUT (09:49)
[2020-08-06] MEDS: DOCUSATE 100 MG CAPSULE PO ×2 (09:49→20:17)
[2020-08-06] MEDS: INSULIN GLARGINE 100 UNIT/ML 3ML PEN 20 UNIT SUBCUT ×2 (09:55→21:11)
--- NOTE | 2020-08-06 10:52 | CM.DANOTE ---
Addendum entered by Opal Eric 08/06/20 11:10: Per RN, spouse is Eboni and spouse has been updated and in contact with patient. Plan: Patient likely to d/c to home with spouse, pending PT. ROBIN Raymond Original Note: Discharge Planning: Patient is 75 yo male with Medicare and Medicaid insurance. patient presents to hospital with complaints of weakness, patient has high blood sugar and DKA. Patient is currently in ICU with insulin drip, patient will move to acute care when insulin drip is no longer needed. Per nurse, alvin is doing better since arrival to the hospital at 0358 this morning. track dresser met with patient in rounds. Per MD, patient will start PT tomorrow on 08/07/20. track dresser will meet with patient for further assessment after patient engages in PT. Discharge Planning/Care Management CM Discharge Assessment Start: 08/06/20 10:46 Freq: Status: Active Protocol: Document 08/06/20 10:46 LN (Rec: 08/06/20 10:52 LN [id number]) Discharge Planning Assessment Assigned Projects Manager ROBIN Raymond Advance Directives? Yes Advance Directives on File Yes History Provided By Patient Has Patient been admitted in last 30 No days? Prior Living Arrangements House Household Members significant other Independent with ADL's Yes Is patient alert and oriented? Yes Barriers to Discharge No Discharge Plan Home Additional Comment Per MD, PT order will be referred tomorrow 08/07/20. Review Status In Process Please Provide Date Initial DC 08/06/20 Assessment Was Performed ROBIN Raymond
[2020-08-06 12:52] LABS: BUN Creatinine Ratio 21.2 (6-22); Blood Urea Nitrogen 18 mg/dL (9-20); Calcium 8.6 mg/dL (8.4-10.2); Carbon Dioxide 18 mmol/L (22-32); Chloride 102 mmol/L (98-107); Estimated Glomerular Filt Rate > 60.0 mL/min (>60); Glucose 196 mg/dL (80-110); HEMOLYSIS 17 (0-50); Magnesium 2.3 mg/dL (1.6-2.3); Potassium 4.1 mmol/L (3.4-5.1); Sodium 132 mmol/L (137-145)
[2020-08-06 13:01] LABS: NT-proBNP (BNP-Adult 18+) 620 pg/mL (<450)
--- NOTE | 2020-08-06 13:24 | DIET.PN ---
Dietary Progress Note Assessment: Mr. Stephan Cook is a 75-year-old male patient with a past medical history significant for coronary artery disease, congestive heart failure, hypertension, hyperlipidemia, diet-controlled diabetes, BPH with urinary symptoms, HERMELINDA on CPAP and osteoarthritis who presents to the ER with complaints of frequent urination. Patient was seen in the ER a few days ago for similar complaint and diagnosed with hyperglycemia with blood sugar of 715. He was discharged to home with a prescription for metformin 500 mg twice daily. Patient additionally reports that he became ill since seeing Dr. Macdonald in May. Reports he has felt very poorly for 2 mo and had lost his sense of smell and taste as well as appetite. He reports eating ice cream, chicken noodle soup and drinking copious water and gatorade but was unable to quench his thirst. He reports diagnosis of prediabetes previously and had not been checking blood sugars. He reports significant unintentional weight loss over the last few months. HT: 182.88cm WT: 112kg UBW: 119.8kg (05/24/20) BMI: 28.6 Labs: UBG pH 7.32 Gluc: 715 (ED), 514, 145 Ketones: 6.4 MNA: 7 Will: Nutrition Diagnosis: 1. 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 2. Altered Nutrition related labs related to endocrine dysfunction, impaired glucose metabolism, lack of previous exposure to accurate nutrition information as evidenced by pt report, dx of diabetes, previous diet high in refined carbohydrates.? Interventions: 1. Discussed pathophysiology of diabetes. Reviewed A1c and its correlation to blood glucose numbers. Discussed recommended BG ranges. 2. Discussed importance of self-monitoring, how often, and when to check. 3. Discussed impact of nutrition/diet on blood sugar control.? Discussed fed versus non-fed state.?? 4. Discussed the effect of carbohydrates/protein/fat on blood sugar control.? Stressed importance of consistent carbohydrate intake at each meal and provided instructions for recommended servings/portions of carbohydrates/protein per meal. Provided pt with educational material. 5. Reviewed carbohydrate counting and measuring carbohydrate content via serving sizes and reading nutrition labels.? Provided handouts.?? 6. Reviewed carbohydrate counting and measuring carbohydrate content via serving sizes and reading nutrition labels.? Provided handouts.?? 7. Discussed healthy weight loss through diet and exercise to increase lean muscle mass.? Pt agreeable to walking or riding a recumbent bike daily. 8. Will provide ONS glucerna if patient PO's < 70%. Diet Order: CCD EER: 2200cal (20cal/kg); 112-130g (1-1.2) Monitoring/Evaluations: PO's, weight, labs. Pt interested in outpatient diabetes education program. Will f/u with PCP.
--- NOTE | 2020-08-06 14:32 | PC.NURSE ---
PT COOPERATIVE AND PLEASANT- VERY TIRED, HIS LUNGS ARE CLEAR AND NO EDEMA NOTED, INSULIN GTT FOLLOWING DKA PROTOCOL TURNED TO OFF ONE HOUR POST SUB CUTANEOUS LANTUS ADMINISTERED AND WILL BE FOLLOWING CBG'S ACHS- HE IS ALLOWED TO TAKE CARB CONSISTENT DIET AND DENIES NAUSEA- GIVEN A RECTAL SUPPOSITORY EARLY IN SHIFT WITH SEVERAL BM'S SINCE - PT IS SALINE LOCKED X 2
[2020-08-06] MEDS: INSULIN ASPART 100 UNIT/ML INSULN PEN SUBCUT ×2 (17:05→21:10)
[2020-08-06] MEDS: polyethylene glycoL 3350 17 GM POWD.PACK PO (20:17)
[2020-08-06] MEDS: ACETAMINOPHEN 325 MG TABLET 650 MG PO (20:18)
[2020-08-06] MEDS: HYDROMORPHONE 0.5 MG INJ IV (21:55)
[2020-08-06] MEDS: LIDOCAINE JELLY 2% 5 ML 5 APPLIC TOP (21:57)
--- NOTE | 2020-08-06 22:41 | PC.NURSE ---
Patient complaint of not being able to feel if he's voiding. Patient is voiding 25-50ml every time he goes to the toilet but bladder scan showed 423ml. Austin BARNES ordered a gomes catheter to be placed for retention. First attempted placement with a 16fr gomes, patient was in excruciating pain and said it was the worst pain of my life, placement was unsuccessful. PRINTED CIRCUIT BOARDS STRIPPER ETCHER ordered lidocaine jelly, patient said this provided no relief and just burned. Penis does look slightly reddened and is painful to the touch. Provider ordered 0.5mg of dilaudid prior to a second attempt to place gomes. 25mins after receiving dilaudid, second attempt was with a 14fr coude catheter. Patient again was screaming in pain, catheter could not be fully advanced and patient did not want to try any further. Provider notified and plan is to consult Dr. Almanza in urology tomorrow.
[2020-08-07] MEDS: MELATONIN 3 MG TABLET 6 MG PO (00:22)
[2020-08-07] MEDS: ACETAMINOPHEN 325 MG TABLET 650 MG PO ×4 (00:23→13:12)
[2020-08-07 03:30] VITALS: BP 143/68; PULSE 95; RESP 20; TEMP 36.5; O2SAT 97
[2020-08-07] MEDS: BISACODYL 10 MG SUPP PR (04:36)
--- NOTE | 2020-08-07 04:45 | PC.NURSE ---
Addendum entered by Shu Baker R.N. 08/07/20 05:58: 0500-Tylenol and Ducolax suppository given per patient request, no BM result from suppository so far. Patient is able to void at least 100mls while sitting on toilet as apposed to trying to use urinal while in bed, urine remains pink with small bloody clots and dysuria continues. Original Note: Mathematical Engineering Technician Note-Patient has been restless most of the night, able to sleep for a few hours after melatonin given at midnight along with PO Tylenol for pain and pressure in lower abdomen, also c/o burning with urination, has voided 50ml and 125ml pink urine with small clots, bladder scanned 400ml at 0400. 0420 notified FLOOR INSTALLATION MECHANIC about above information, no new orders obtained at this time, awaiting Urology Consult this am.
--- NOTE | 2020-08-07 04:49 | PM.EVENT ---
Event Note Date Patient Seen: 08/06/20 Time Patient Seen: 21:00 Event Note: The patient has been having frequent small voids describes lower abdominal discomfort. Bladder scan completed which shows over 400 cc residual. The patient appears uncomfortable with abdomen tender to palpation. Two attempts at Peace catheter placement were unsuccessful with significant pain despite use of lidocaine jelly and using a smaller catheter. The glans of the penis is reddened but not painful, no discharge however avoid the patient does present hematuria in few clots. Recheck later in the evening shows consistent urinary retention at over 400 cc. -requested urology consult with Dr. Almanza, we appreciate his evaluation recommendations.
--- NOTE | 2020-08-07 07:36 | DI.RAD.S_ITS ---
PROCEDURE: XR KUB INDICATIONS: Ureteral calculus TECHNIQUE: One view of the abdomen acquired. COMPARISON: [facility], CT, CT ABDOMEN PELVIS W CON, 08/04/2020, 10:06. [facility], CR, XR ACUTE ABDOMEN SERIES, 08/06/2020, 3:42. FINDINGS: Surgical changes and devices: Right lower quadrant surgical clips, positioned potentially representing prior appendectomy.. Bowel: Bowel gas pattern is normal. Soft tissues: There is a possible faintly visualized calculus seen lateral to the left margin of the mid sacrum, on the targeted pelvic plain film view. The body habitus is large, certainty of identification of the calculus seen more superiorly on CT scanning from 08/04/20 is not definite.. Visualized solid organ contours appear normal in size. Bones: No suspicious bony lesions. IMPRESSION: Possible calculus that was within the upper left ureter on CT scanning 08/04/20 near the left lateral border of the middle 3rd of the sacrum, faintly visualized. Please note that only approximately 1/3 of urinary tract stones visible by CT KUB scanning can be seen by plain film imaging. Surgical clips suggest prior appendectomy. Dictated by: Kadeem Thomas M.D. on 08/07/2020 at 9:01 Approved by: Kadeem Thomas M.D. on 08/07/2020 at 9:04
[2020-08-07 08:00] VITALS: BP 110/62; PULSE 90; RESP 25; TEMP 37.1; O2SAT 97
[2020-08-07] MEDS: ENOXAPARIN 40 MG/0.4 ML SYRINGE SUBCUT (08:20)
[2020-08-07] MEDS: SODIUM CHLORIDE 0.9% FLUSH 10 ML IV ×2 (08:20→21:49)
[2020-08-07] MEDS: INSULIN GLARGINE 100 UNIT/ML 3ML PEN 20 UNIT SUBCUT ×3 (08:21→21:48)
[2020-08-07] MEDS: DOCUSATE 100 MG CAPSULE PO ×2 (08:21→21:47)
[2020-08-07] MEDS: INSULIN ASPART 100 UNIT/ML INSULN PEN SUBCUT ×6 (08:22→23:44)
[2020-08-07 09:40] LABS: Hematocrit 37.1 % (41-53); Hemoglobin 12.2 g/dL (13.5-17.5); Mean Corpuscular HGB Conc 32.9 % (30-36); Mean Corpuscular Hemoglobin 30.2 PG (26-34); Mean Corpuscular Volume 91.8 fL (80-100); Platelet Count 302 X10^3/uL (150-400); Red Blood Cell Count 4.04 X10^6/uL (4.5-5.9); Red Cell Distribution Width 16.2 % (11.6-14.8); White Blood Cell Count 8.6 X10^3/uL (4.5-11.0)
[2020-08-07 09:53] LABS: Blood Urea Nitrogen 23 mg/dL (9-20); Calcium 8.8 mg/dL (8.4-10.2); Carbon Dioxide 16 mmol/L (22-32); Chloride 97 mmol/L (98-107); Estimated Glomerular Filt Rate 51.4 mL/min (>60); Glucose 454 mg/dL (80-110); HEMOLYSIS < 15 (0-50); Magnesium 2.3 mg/dL (1.6-2.3); Phosphorous 4.5 mg/dL (2.3-3.7); Potassium 4.7 mmol/L (3.4-5.1); Sodium 130 mmol/L (137-145)
--- NOTE | 2020-08-07 11:39 | PT.IIE ---
Current Diagnoses Type 2 diabetes mellitus with ketoacidosis without coma (08/06/20) Surgical History (Last Updated 08/06/20 @ 04:41 by DEMARIO Lenz) S/P angioplasty with stent S/P appendectomy (2007) S/P coronary artery bypass graft x 4 S/P partial thyroidectomy (~1999) S/P vasectomy Status post coronary angioplasty Medical History (Last Updated 08/06/20 @ 04:41 by DEMARIO Lenz) Acquired hypothyroidism (03/30/15) Benign non-nodular prostatic hyperplasia with lower urinary tract symptoms (03/30/15) Bullous impetigo Chickenpox Coronary artery disease involving [place] coronary artery of [place] heart without angina pectoris (03/30/15) Degenerative disc disease, lumbar Diabetes type 2, uncontrolled Essential hypertension (03/30/15) Foraminal stenosis of lumbosacral region (07/02/17) Fracture of medial condyle of femur Gastroesophageal reflux disease without esophagitis (03/30/15) Kidney stone on left side Kidney stones Left foot drop (12/30/16) Measles Mixed hyperlipidemia (03/30/15) Obstructive sleep apnea of adult (~2003) Primary insomnia (~2003) Primary osteoarthritis of both hips (07/02/17) Primary osteoarthritis of left knee (07/02/17) Sciatica Physical Therapy Inpatient Evaluation/Re-Eval M1 PT/OT-IP Prior Functional Status Start: 08/07/20 13:37 Freq: NEEDED Status: Active Protocol: Document 08/07/20 11:39 AB (Rec: 08/07/20 13:58 AB [id number]) Medical Review Prior Functional Status Medical History Reviewed Yes Communication able to make needs known Mobility and Gait pt stated that he is modified independent with all mobilities and ambulation without AD but stated that he bounces from one furniture/ wall to the other and that he has balance problems and has fallen 3 times in the last 3 month or so. stated that he is still driving Prior Functional Level (Other details) pt stated that he had h/o L femur fx and that L LE is not working Social History Household Members significant other Living Arrangements House Number of Floors (Floors) Two Floors Number of Stairs To Enter/Railing? pt stays on main level of the house; 3 steps to enter without rails Home Environment Standard Height Toilet,Tub/ Shower Additional Social History Comment pt stated that he usually take a bath: sits on EOB tub and goes to the bottom of the tub and get up on all fours to be able to stand and out of the tub M2 PT-IP Current Condition Start: 08/07/20 13:37 Freq: NEEDED Status: Active Protocol: Document 08/07/20 11:39 AB (Rec: 08/07/20 13:58 AB [email or web address]) Physical Therapy Current Condition Current Condition Evaluation Date 08/07/20 Treatment Diagnosis diabetic ketoacidosis; difficulty in walking Onset Date 08/06/20 Precautions Other Precautions falls M3 PT-IP Subjective Start: 08/07/20 13:37 Freq: NEEDED Status: Active Protocol: Document 08/07/20 11:39 AB (Rec: 08/07/20 13:58 AB [email or web address]) Subjective Physical Therapy Visit Type Type Initial Evaluation Visit Start Time 11:39 Visit Stop Time 12:25 Total Visit Minutes 46 Number of CONTENT ASSISTANT Visits 0 Physical Therapy Visit Comments Patient Comments pt is requesting to use the toilet Therapy Pain Assessment Pain Present Pain Present Denied Pain M4 PT-IP Mobility and Gait Start: 08/07/20 13:37 Freq: NEEDED Status: Active Protocol: Document 08/07/20 11:39 AB (Rec: 08/07/20 13:58 AB [email or web address]) PT-Bed Mobility Assessment Rolling Level of Assist Standby Assistance Supine to Sit Supine to Sit Standby Assistance PT-Transfer Assessment Sit to and From Stand Sit to and from Stand Maximum Assistance,1 Person Assistance,Use of Upper Extremities Equipment Transfer Assistive Device Gait Belt,Front Wheeled Walker Orthotic/Prosthetic Devices or Brace: No Transfers Transfer Destination Toilet Transfer Technique ambulated using FWW Transfer Ability Level of Assist Maximum Assistance,1 Person Assistance,Use of Upper Extremities Comments Mobility Comments pt sitting on EOB and requesting to use the toilet. completed sit to stand max A and cues. pt is impulsive. completed ambulation using FWW max A and cues. (+) L knee buckling requiring max A and cues. pt pushes FWW away from him when turning to sit on the toilet and reached for the grab bar. pt educated on safety. pt completed sit to stand from the toilet using grab bar max A and cues. ambulated from the toilet to the bed max A using FWW. refused to sit on the chair stated that he will sit on the EOB for lunch but agreed to demonstrate sit <>supine and completed SBA. informed pt regarding bilateral foot drop with L>R and concerns regarding balance and ambulation and driving concerns. informed regarding SNF rehab at this time and pt understood although stated that he is not happy about it. informed pt that caregiver training will be conducted when appropriate if pt goes home but at this time is requiring max A and stair climbing is also a concern. also informed pt that he needs consult on an outpt basis to address his foot drop as well as his decrease sensation on BLE. pt understood. informed nurse regarding pt's mobility. pt has bilateral foot drop and does not really have a push off that pt compensates by moving his body forwar for momentum to propel himself forward. will continue to work on use of FWW for ambulation. Gait Assessment Gait Gait Assistance Required: Maximum Assistance Distance (Feet) 10 Able to Maintain Weight Bearing Status Yes During Gait Assistive Devices Assistive Device Gait Belt,Front Wheeled Walker Orthotic/Prosthetic Devices or Brace: No Gait Deviations General Gait Pattern Decreased Stride Length, Decreased Feet Clearance, Flexed Trunk,Step-to Gait Factors Limiting Gait Function Factors Limiting Gait Function Decreased Activity Tolerance, Decreased Sensation,Decreased Strength,Difficulty Following Directions,Limited Range of Motion,Poor Balance,Poor Safety Awareness Comments Gait Comments pls refer to mobility section for details PT-Balance Assessment Sitting Balance and Reactions Static Sitting Balance Ability Good Dynamic Sitting Balance Ability Good Standing Balance and Reactions Static Standing Balance Ability Poor Dynamic Standing Balance Ability Poor Device Used FWW M5 PT-IP Objective Assessments Start: 08/07/20 13:37 Freq: NEEDED Status: Active Protocol: Document 08/07/20 11:39 AB (Rec: 08/07/20 13:58 AB [email or web address]) Orientation Orientation/Cognition Level of Alertness Alert Orientation Name,Place,Situation Language Function Ability No Deficits Noted Safety Awareness Decreased Safety Awareness Memory Description No Deficits Noted Gross Range of Motion Lower Extremity ROM Assessment Within Functional Limits Strength Lower Extremity Strength Assessment Bilaterally Impaired Knee L knee: 3+/5 ; R knee 4-/5 Ankle bilateral foot drop L>R Sensation Assessment Sensation Gross Sensation Right LE Impaired,Left LE Impaired Light Touch Impaired Proprioception (Position) Impaired Comments Sensation Comments decrease sensation on BLE from the knee down to B feet but able to feel some per pt Muscle Tone Muscle Tone WNL Yes M6 PT-IP Treatment Start: 08/07/20 13:37 Freq: NEEDED Status: Active Protocol: Document 08/07/20 11:39 AB (Rec: 08/07/20 13:58 AB [email or web address]) Physical Therapy Treatment Education Education Provided Safety M7 PT-IP Assessment and Plan Start: 08/07/20 13:37 Freq: NEEDED Status: Active Protocol: Document 08/07/20 11:39 AB (Rec: 08/07/20 13:58 AB [email or web address]) PT Summary Assessment and Plan Potential Rehabilitation Potential Fair Status of Condition at Evaluation Evolving Summary Impairments Pain,ROM,Strength,Balance, Coordination,Sensation,Tone, Cognition,Bed Mobility, Transfers,Gait,Activity Tolerance Assessment Summary pt requiring max A and max cues with ambulation using FWW . pt is impulsive and has decrease safety awareness requiring max cues for safety. pt presented with B foot drop and decrease sensation affecting standing balance and ambulation. pt also with (+) L knee buckling during ambulation requiring max A and max cues. pt will require SNF rehab at this time. will continue to assess progress. Goals Bed Mobility Goal Independent Transfer Goal Contact Guard Assistance,Front Wheeled Walker Gait Goal Contact Guard Assistance,Front Wheel Walker Gait Distance 50 Other Goals ambulation using FWW SBA 150 ft up/down 3 steps using AD/ without AD min A and cues. Days to Meet Goals 10 Frequency of Treatment Frequency Of Treatment Once a Day Treatment Plan Physical Therapy Treatment Plan Bed Mobility Training,Transfer Training,Gait Training, Therapeutic Exercise,Balance Retraining,Discharge Planning, Hot or Cold Pack,Neuromuscular Re-ed,Coordination Retraining ,Manual Therapy Precautions Other Precautions falls Recommendations To Nursing Amount of Assist Needed 1 Person Assist Discharge Recommendations PT Discharge Recommendations SNF Rehab Equipment Needed for Home Before FWW if pt goes home Discharge Transportation Needs at Discharge Wheelchair/Cabulance
[2020-08-07 12:41] VITALS: PULSE 99
--- NOTE | 2020-08-07 13:06 | CM.DPC ---
DCN Note: Per RN, patient's significant other has been disoriented, wandering the halls of the hospital and unable to find her way back to patient's room without support. airport electrician met with patient and s/o at bedside. Patient presents as A/Ox4. Patient states that he is not ready for PT today and that he is feeling horrible. Patient states that he is anxious to meet with the urologist today and he has been trying for the last 2.5 months to see a urologist. 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 Patient states that both him and s/o drive but s/o only drives a few miles a day to the store and back. Patient states that he is thinking about hiring a asbestos textile supervisor to help around the house. airport electrician discuss HH as an option and patient and s/o are agreeable and understand. During medical rounds, patient presented tearful and did not want to meet bedside. RN met with patient afterwards and patient reports that he is overwhelmed and anxious about the urologist's assessment. Per RN, patient's daughter Bridget reports concerns of patient's s/o's alcoholism. airport electrician met with patient and s/o again at bedside. Patient states that PT told him that SNF is recommended and that he meet with PT again later today. airport electrician provided list of SNFs and explained SNF. Patient and s/o understand and are agreeable to SNF rehab if needed. airport electrician to contact [facility]. Patient gave consent for airport electrician to contact his daughters. Patient states his sister and his niece are coming from [place], [place] and will stay as long as needed. Per MD and RN, patient has high blood sugar and is not medically stable at this time. Plan: follow PT eval and refer for SNF rehab at d/c ROBIN Raymond
--- NOTE | 2020-08-07 13:10 | OT.IPNOTE ---
Pt BS 408 and had not gotten insulin yet, therefore hold OT eval .
[2020-08-07] MEDS: HYDROMORPHONE 1 MG INJ 2 MG IV (14:55)
[2020-08-07] MEDS: HYDROMORPHONE 1 MG INJ IV (15:04)
[2020-08-07] MEDS: LIDOCAINE 2% (GLYDO) 6 ML GEL TOP (15:04)
--- NOTE | 2020-08-07 15:23 | P.PN_ITS ---
Subjective Subjective Date Patient Seen: 08/07/20 Time Patient Seen: 08:23 Interval history: He had difficulty urinating overnight. Bladder check showed high residual >400. He has lower abdominal fullness feeling. He otherwise is eating improved. Feels less fatigued and less dehydrated. No other complaints. Exam Vital Signs (past 8 hours): - 08/07/20 08:00 08/07/20 12:41 Temperature 98.7 F Pulse Rate 90 99 H Respiratory Rate 25 H Blood Pressure 110/62 Pulse Oximetry 97 Oxygen Delivery Method Room Air Oxygen Flow Rate 0 Narrative Exam Narrative: GENERAL APPEARANCE: well developed, well nourished, in no acute distress. HEENT: Normocephalic, PERRLA, conjunctiva clear, EOMs intact without nystagmus, no sinus tenderness to percussion, no rhinorrhea, mucous membranes are pink and dry with cobblestone tongue NECK/THYROID: neck supple, no JVD, no carotid bruit, no thyromegaly, trachea midline. LYMPH NODES: no cervical or supraclavicular lymphadenopathy. SKIN: Alvin, warm and dry, no visible lesions, rashes, ulcerations. HEART: Tachycardic rate, regular rhythm, S1-S2, no murmur, no rubs or gallops, no edema . LUNGS: bibasilar fine crackles, no coarseness orwheezing, no cough present. CHEST: Symmetrical movement, no accessory muscle use, good tidal volume. ABDOMEN: Soft, no distention, no abdominal tenderness, no organomegaly, no flank tenderness, active bowel tones. EXTREMITIES: moves all extremities, strength is 5/5 and symmetrical, no Clubbing or cyanosis. NEUROLOGIC: AAO x4, no focal neurologic deficits, cranial nerves II-XII grossly intact, diminished sensation left leg, hearing grossly normal to speech. PSYCH: briskly responsive limited insight, cooperative, appropriate with stable behavior Objective Labs Result Diagrams: 08/07/20 09:15 08/07/20 09:15 Labs: Laboratory Results - last 24 hr 08/07/20 08/07/20 09:15 09:15 WBC 8.6 RBC 4.04 L Hgb 12.2 L Hct 37.1 L MCV 91.8 MCH 30.2 MCHC 32.9 RDW 16.2 H Plt Count 302 Sodium 130 L Potassium 4.7 Chloride 97 L Carbon Dioxide 16 L BUN 23 H Creatinine 1.35 H Estimated GFR 51.4 L BUN/Creatinine Ratio 17.0 Glucose 454 H D Calcium 8.8 Phosphorus 4.5 H D Magnesium 2.3 PFSH Medical History (Updated 08/06/20 @ 04:41 by DEMARIO Lenz) Acquired hypothyroidism (03/30/15) Benign non-nodular prostatic hyperplasia with lower urinary tract symptoms (03/30/15) Bullous impetigo Chickenpox Coronary artery disease involving [place] coronary artery of [place] heart without angina pectoris (03/30/15) Degenerative disc disease, lumbar Diabetes type 2, uncontrolled Essential hypertension (03/30/15) Foraminal stenosis of lumbosacral region (07/02/17) Fracture of medial condyle of femur Gastroesophageal reflux disease without esophagitis (03/30/15) Kidney stone on left side Kidney stones Left foot drop (12/30/16) Measles Mixed hyperlipidemia (03/30/15) Obstructive sleep apnea of adult (~2003) Primary insomnia (~2003) Primary osteoarthritis of both hips (07/02/17) Primary osteoarthritis of left knee (07/02/17) Sciatica Surgical History (Updated 08/06/20 @ 04:41 by DEMARIO Lenz) S/P angioplasty with stent S/P appendectomy (2007) S/P coronary artery bypass graft x 4 S/P partial thyroidectomy (~1999) S/P vasectomy Status post coronary angioplasty Family History Brother Prostate cancer Mother Diabetes mellitus Hypertension Stroke Father Prostate cancer Brother Prostate cancer Social History details: Single, but with same partner 35+ years, has children and now grandkids household members: significant other occupational status: previously employed Smoking Status: Never smoker alcohol intake: former substance use type: does not use Assessment & Plan Assessment & Plan narrative: 75-year-old male patient with a past medical history significant for coronary artery disease (see S/P CABG x4, multiple PCI, stents) congestive failure with preserved ejection fraction, hypertension, hyperlipidemia, diet-controlled diabetes, BPH with urinary symptoms, HERMELINDA on CPAP and osteoarthritis who presents to the ER with complaints of continuing frequent urination following being evaluated yesterday in the emergency department found to be hyperglycemia with blood sugar of 715. The patient was evaluated, rehydrated and discharged home with a prescription for metformin 500 mg twice daily which does not appear to have been started. 1. Diabetic ketoacidosis, acute, present on admission, active -patient previously diagnosed with diet-controlled diabetes. Patient seen in the ER yesterday with serum glucose is 714 and a hemoglobin A1c of greater than 14. Today and initial labs serum glucose is 514. -patient returns today for continued complaints of frequent urination is found to be significantly dehydrated with tachycardia and serum ketones of 6.4. -patient received 1 L of normal saline in the emergency department, ordered normal saline 125 cc/hour in the setting of CAD and congestive heart failure. -5 was on insulin drip which was then stopped in early the morning -now eating a diet, and so swithced to lantus SC at 20U BID, which was increased as morning glucose >400, increase glucose checks to q2hr -ordered follow-up labs with BMP and magnesium and phosphorus, this PM, 2. Chronic congestive heart failure with preserved ejection fraction, chronic, stable -patient has a complex cardiac history with CABG and multiple PCIs and stent. Most recent echo (2018) found EF to be 60-65%. -patient with elevated proBNP at 764, chest x-ray without evidence of congestive failure. -will be conservative in rehydration to prevent complications with normal saline -will continue routine home medications of lisinopril 5 mg daily and metoprolol tartrate 25 mg twice daily. -will recheck proBNP as patient is rehydrated. 3. Coronary artery disease, chronic, stable. -patient has a complex cardiac history with CABG and multiple PCIs and stent. -patient denies complaints of chest pain. -sinus tachycardia rate 105 without ectopy or block, no ST or T-wave changes and no Q-waves, unchanged from previous tracing. -will continue aspirin 81 mg and clopidogrel 75 mg daily. -telemetry. 4. Hypertension, chronic, stable -patient has a blood pressure of 150/85 upon arrival to the ER. -will continue routine medications of lisinopril and metformin as above 5. Hyperlipidemia, chronic, stable. -continue current home regimen of atorvastatin 80 mg daily. 6. Acquired hypothyroidism, chronic, stable. -patient status post partial thyroidectomy. -continue home regimen of levothyroxine 175 mcg daily. -will check TSH and free T4. 7. Acute urinary retention, active -difficult gomes placement -requested urology consult VTE prophylaxis: Enoxaparin IV fluid: Normal saline 125 cc per Diet: NPO Code status: Full code, the patient designates his daughter Eboni to be his surrogate decision maker. The patient is admitted to the hospital due to the severity of his ongoing symptoms unresolved with outpatient treatment. The patient is admitted to the ICU for IV insulin infusion requiring close monitoring prevent complications and untoward events.
--- NOTE | 2020-08-07 15:24 | PC.NURSE ---
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
[2020-08-07 16:16] VITALS: BP 144/72; PULSE 75; RESP 16; TEMP 36.4; O2SAT 97
[2020-08-07 17:58] LABS: BUN Creatinine Ratio 16.9 (6-22); Blood Urea Nitrogen 26 mg/dL (9-20); Calcium 8.6 mg/dL (8.4-10.2); Carbon Dioxide 21 mmol/L (22-32); Chloride 97 mmol/L (98-107); Estimated Glomerular Filt Rate 44.1 mL/min (>60); Glucose 328 mg/dL (80-110); HEMOLYSIS < 15 (0-50); Sodium 129 mmol/L (137-145)
--- NOTE | 2020-08-07 18:57 | PM.CN ---
History of Present Illness Consult details Date Patient Seen: 08/07/20 Time Patient Seen: 13:30 Chief complaint: Weakness Reason for consult: Urinary retention Requesting provider: Paco Sultana Narrative: The patient is a 75-year-old morbidly obese white male with multiple chronic comorbidities presents to the [facility] ED last evening with complain of malaise, fatigue, weakness, and urinary frequency up to 20 times per night. He states that for the prior 4 days all he did is eat ice cream because he did not feel like eating anything else. On presentation blood glucose was 715 and hemoglobin A1c was 14. He is admitted for further evaluation and management of acute diabetic ketoacidosis. His father and 2 brothers have had diagnosis of prostate cancer. Most recent PSA I was able locate was 2.030, on 07/03/2016. CT KUB 08/04/2020 demonstrated a minimally or nonobstructing 5 mm left proximal ureteral calculus. KUB 08/07/2020, suggest a faintly radiopaque density left to the sacrum possibly consistent with a course left ureter. Urology consultation requested for inability of staff to pass Peace catheter and bladder scan residual volume in excess of 900 cc. Meds Home Medications and Allergies Home Medications Medication Instructions Recorded Confirmed Type aspirin 81 mg PO Q DAY #30 tab 06/10/16 08/06/20 Rx clobetasol 0.05 % topical ointment 1 applictn TOP BID #30 gram 03/02/19 08/06/20 Rx nystatin 100,000 unit/gram topical 1 applictn TOP BID #30 gram 04/07/19 08/06/20 Rx powder clopidogrel 75 mg tablet 75 mg PO QDAY #90 tab 11/02/19 08/06/20 Rx omeprazole 20 mg capsule,delayed See Rx Instructions .ROUTE 02/23/20 08/06/20 Rx release .COMPLEX #180 capsule doxazosin 8 mg tablet 8 mg PO BEDTIME #90 each 02/24/20 08/06/20 Rx finasteride 5 mg tablet 5 mg PO DAILY #90 tab 02/24/20 08/06/20 Rx levothyroxine 175 mcg tablet 175 mcg PO DAILY #90 tab 02/24/20 08/06/20 Rx metoprolol tartrate 25 mg tablet 25 mg PO BID tab 05/24/20 08/06/20 History amitriptyline 10 mg tablet See Rx Instructions .ROUTE 06/05/20 08/06/20 Rx .COMPLEX #90 tablet atorvastatin 80 mg tablet 80 mg PO HS #90 tab 06/05/20 08/06/20 Rx lisinopril 5 mg tablet 5 mg PO QDAY #90 tab 06/05/20 08/06/20 Rx oxybutynin chloride 10 mg 10 mg PO DAILY #90 tab 07/04/20 08/06/20 Rx tablet,extended release 24 hr metformin 500 mg PO BID #30 tab 08/04/20 08/06/20 Rx Allergies Allergy/AdvReac Type Severity Reaction Status Date / Time Sulfa (Sulfonamide Allergy Unknown Verified 08/04/20 09:18 Antibiotics) [SULFA (SULFONAMIDE ANTIBIOTICS)] Review of Systems Review of Systems ROS: Yes All systems reviewed with the patient and are negative except as otherwise documented Exam Vital Signs (past 8 hours): - 08/07/20 12:41 08/07/20 16:16 Temperature 97.6 F Pulse Rate 99 H 75 Respiratory Rate 16 Blood Pressure 144/72 H Pulse Oximetry 97 Oxygen Delivery Method Room Air Oxygen Flow Rate 0 Narrative Exam Narrative: He is an elderly, morbidly obese, white male looking older than stated age. Head/neck-poor dentition. No visible adenopathy or JVD. Pupils are equal and round. Abdomen is round and mildly firm no tenderness elicited. External genitalia the phallus appears to have been circumcised with some redundancy of skin perhaps due to encroaching abdominal pannus. Meatus is patent and of normal caliber. Scrotum is without lesion, rash, or mass. Testes are descended bilaterally without fluid collection, mass, or tenderness. Objective Labs Result Diagrams: 08/07/20 09:15 08/07/20 17:13 Labs: Laboratory Results - last 24 hr 08/07/20 08/07/20 08/07/20 09:15 09:15 17:13 WBC 8.6 RBC 4.04 L Hgb 12.2 L Hct 37.1 L MCV 91.8 MCH 30.2 MCHC 32.9 RDW 16.2 H Plt Count 302 Sodium 130 L 129 L Potassium 4.7 4.0 Chloride 97 L 97 L Carbon Dioxide 16 L 21 L BUN 23 H 26 H Creatinine 1.35 H 1.54 H Estimated GFR 51.4 L 44.1 L BUN/Creatinine Ratio 17.0 16.9 Glucose 454 H D 328 H D Calcium 8.8 8.6 Phosphorus 4.5 H D Magnesium 2.3 Assessment & Plan Assessment and plan (1) Urinary retention: Status: Acute (2) Kidney stone on left side: Status: Acute (3) Family history of prostate cancer: Status: Acute Assessment & Plan narrative: Assessment: 1. Urinary retention 2. Minimally or nonobstructing left ureteral calculus. 3. Strong family history of prostate cancer. Plan: 1. Recommend discontinuation of oxybutynin. 2. Continue finasteride 5 mg p.o. q.day for now. 3. Recommend Rx for tamsulosin 0.4 mg at HS. 4. Consider repeat CT KUB for localizing left renal colic. 5. Recommend strain all urine. Submit recovered stone for crystal graphic analysis. 6. An 18 Sinhala coude urinary catheter was successfully placed at the bedside with great difficulty due to a poor patient compliance and cooperation.
[2020-08-07] MEDS: SODIUM CHLORIDE 0.9% 1,000 ML 125 ML IV (19:32)
[2020-08-07 20:43] VITALS: BP 98/55; PULSE 65; RESP 17; TEMP 36.4; O2SAT 97
--- NOTE | 2020-08-07 21:04 | P.HP_ITS ---
History of Present Illness History of Present Illness Chief complaint: Weakness Narrative: Mr. Stephan Cook this 75-year-old male patient with a past medical history significant for coronary artery disease (see S/P CABG x4, multiple PCI, stents) congestive failure with preserved ejection fraction, hypertension, hyperlipidemia, diet-controlled diabetes, BPH with urinary symptoms, HERMELINDA on CPAP and osteoarthritis who presents to the ER with complaints of frequent urination. Patient was seen in the ER yesterday for similar complaint and diagnosed with hyperglycemia with blood sugar of 715. Patient was treated with rehydration and started on metformin and discharged to home with a prescription for metformin 500 mg twice daily which was not started. the patient reports frequent small voids ongoing for the last 3 days. Yesterday on the CT scan a 5 mm stone was identified in the proximal ureter with perinephric stranding and blood in the urine however no leukocyte esterase or nitrites. Patient additionally reports that became quite ill since seen Dr. Macdonald in May and believes he had COVID-19 infection. Reports he has felt very poorly since and had lost his sense of smell and taste as well as appetite. He reports eating ice cream and drinking copious water but was unable to quench his thirst. He states he was told he was a borderline diabetic previously and had not been checking blood sugars. The patient reports no complaints of fevers or chills, headaches or dizziness, falls or trauma. He has had no nasal congestion or sore throat.Denies complaints of chest pain palpitations and reports no shortness of breath cough or wheezing. He denies epigastric or abdominal pain and has had no nausea vomiting. The patient states he has not had a bowel movement in 4 days and feels constipated. CT scan yesterday did not identify significant stool loading. The patient reports that his left leg has diminished sensation since he had a fractured femur however his right foot has recently had sharp shooting pains. Upon arrival the patient is afebrile with temperature 98.1?, heart rate 116, blood pressure 150/85, respirations of 22 saturating 95% on room air. Chest x- ray abdominal films were obtained which found no acute findings. Patient had a CT of the abdomen pelvis shows some which found a 5 mm proximal ureteral stone with mild hydronephrosis perinephric stranding, colonic and duodenal diverticulosis. Urinalysis yesterday for the found a specific gravity of 1.005, positive glucose, ketones and blood but negative for nitrites or leukocyte esterase. Twelve lead EKG today is sinus tachycardia rate 105 without ectopy or block, no ST or T-wave changes and no Q-waves, unchanged from previous tracing. On laboratory analysis today the patient has white count of 10.1 with no shift, hemoglobin of 13.6, hematocrit of 41.8, platelets 429. He is mildly hyponatremic with a sodium of 133, potassium is 4.8 and magnesium is 2.5. He has a INSPECTOR RECEIVING of 17. His BUN is 18 and creatinine 0.98. His nonfasting glucose is 514. His liver functions are all within normal limits. He has lactic acid 1.6. On VBG has a pH of 7.32, bicarb of 19 with a base excess of -7. He has a total CK of 46 and troponin of less than 0.012. His proBNP is elevated and sevens 64. Serum ketones are 6.4. The hemoglobin A1c was obtained yesterday which was greater than 14. The patient is admitted to the hospitalist service for diabetic ketoacidosis. Patient History Medical History (Updated 08/07/20 @ 19:04 by Seamus Almanza MD) Acquired hypothyroidism (03/30/15) Benign non-nodular prostatic hyperplasia with lower urinary tract symptoms (03/30/15) Bullous impetigo Chickenpox Coronary artery disease involving [place] coronary artery of [place] heart without angina pectoris (03/30/15) Degenerative disc disease, lumbar Diabetes type 2, uncontrolled Essential hypertension (03/30/15) Family history of prostate cancer Foraminal stenosis of lumbosacral region (07/02/17) Fracture of medial condyle of femur Gastroesophageal reflux disease without esophagitis (03/30/15) Kidney stone on left side Kidney stones Left foot drop (12/30/16) Measles Mixed hyperlipidemia (03/30/15) Obstructive sleep apnea of adult (~2003) Primary insomnia (~2003) Primary osteoarthritis of both hips (07/02/17) Primary osteoarthritis of left knee (07/02/17) Sciatica Urinary retention Surgical History S/P angioplasty with stent S/P appendectomy (2007) S/P coronary artery bypass graft x 4 S/P partial thyroidectomy (~1999) S/P vasectomy Status post coronary angioplasty Family & Social History Family History Brother Prostate cancer Mother Diabetes mellitus Hypertension Stroke Father Prostate cancer Brother Prostate cancer Social History: household members significant other Prior Living Arrangements House Safety & Behavioral: Feels Safe in Current Yes Environment Been Physically Hurt or No Threatened By a Person Suicidal Ideation Description None Suicide Plan Description No Plan Tobacco & Substance use: Smoking Status Never smoker alcohol intake former alcohol intake frequency 0-2 drinks per day Substance Use Type does not use Meds Home Medications and Allergies Home Medications Medication Instructions Recorded Confirmed Type aspirin 81 mg PO Q DAY #30 tab 06/10/16 08/06/20 Rx clobetasol 0.05 % topical ointment 1 applictn TOP BID #30 gram 03/02/19 08/06/20 Rx nystatin 100,000 unit/gram topical 1 applictn TOP BID #30 gram 04/07/19 08/06/20 Rx powder clopidogrel 75 mg tablet 75 mg PO QDAY #90 tab 11/02/19 08/06/20 Rx omeprazole 20 mg capsule,delayed See Rx Instructions .ROUTE 02/23/20 08/06/20 Rx release .COMPLEX #180 capsule doxazosin 8 mg tablet 8 mg PO BEDTIME #90 each 02/24/20 08/06/20 Rx finasteride 5 mg tablet 5 mg PO DAILY #90 tab 02/24/20 08/06/20 Rx levothyroxine 175 mcg tablet 175 mcg PO DAILY #90 tab 02/24/20 08/06/20 Rx metoprolol tartrate 25 mg tablet 25 mg PO BID tab 05/24/20 08/06/20 History amitriptyline 10 mg tablet See Rx Instructions .ROUTE 06/05/20 08/06/20 Rx .COMPLEX #90 tablet atorvastatin 80 mg tablet 80 mg PO HS #90 tab 06/05/20 08/06/20 Rx lisinopril 5 mg tablet 5 mg PO QDAY #90 tab 06/05/20 08/06/20 Rx oxybutynin chloride 10 mg 10 mg PO DAILY #90 tab 07/04/20 08/06/20 Rx tablet,extended release 24 hr metformin 500 mg PO BID #30 tab 08/04/20 08/06/20 Rx Allergies Allergy/AdvReac Type Severity Reaction Status Date / Time Sulfa (Sulfonamide Allergy Unknown Verified 08/04/20 09:18 Antibiotics) [SULFA (SULFONAMIDE ANTIBIOTICS)] Exam Vital Signs (past 8 hours): - 08/07/20 16:16 08/07/20 20:43 Temperature 97.6 F 97.5 F L Pulse Rate 75 65 Respiratory Rate 16 17 Blood Pressure 144/72 H 98/55 L Pulse Oximetry 97 97 Oxygen Delivery Method Room Air Oxygen Flow Rate 0 Objective Labs Result Diagrams: 08/08/20 04:35 08/08/20 04:35 Labs: Laboratory Results - last 24 hr 08/07/20 08/07/20 08/07/20 09:15 09:15 17:13 WBC 8.6 RBC 4.04 L Hgb 12.2 L Hct 37.1 L MCV 91.8 MCH 30.2 MCHC 32.9 RDW 16.2 H Plt Count 302 Sodium 130 L 129 L Potassium 4.7 4.0 Chloride 97 L 97 L Carbon Dioxide 16 L 21 L BUN 23 H 26 H Creatinine 1.35 H 1.54 H Estimated GFR 51.4 L 44.1 L BUN/Creatinine Ratio 17.0 16.9 Glucose 454 H D 328 H D Calcium 8.8 8.6 Phosphorus 4.5 H D Magnesium 2.3
[2020-08-07 23:30] VITALS: BP 104/59; PULSE 90; RESP 18; TEMP 36.7; O2SAT 98
[2020-08-08] MEDS: SODIUM CHLORIDE 0.9% 1,000 ML 125 ML IV ×3 (03:08→19:26)
[2020-08-08 03:30] VITALS: BP 92/52; PULSE 88; RESP 18; TEMP 37.1; O2SAT 97
[2020-08-08 05:23] LABS: Hematocrit 32.6 % (41-53); Hemoglobin 10.9 g/dL (13.5-17.5); Mean Corpuscular HGB Conc 33.5 % (30-36); Mean Corpuscular Hemoglobin 30.3 PG (26-34); Mean Corpuscular Volume 90.4 fL (80-100); Platelet Count 238 X10^3/uL (150-400); Red Blood Cell Count 3.61 X10^6/uL (4.5-5.9); Red Cell Distribution Width 15.8 % (11.6-14.8); White Blood Cell Count 7.1 X10^3/uL (4.5-11.0)
[2020-08-08 05:28] LABS: Blood Urea Nitrogen 24 mg/dL (9-20); Calcium 8.2 mg/dL (8.4-10.2); Carbon Dioxide 23 mmol/L (22-32); Chloride 101 mmol/L (98-107); Estimated Glomerular Filt Rate > 60.0 mL/min (>60); Glucose 236 mg/dL (80-110); HEMOLYSIS < 15 (0-50); Magnesium 2.1 mg/dL (1.6-2.3); Phosphorous 4.8 mg/dL (2.3-3.7); Sodium 132 mmol/L (137-145)
[2020-08-08] MEDS: INSULIN ASPART 100 UNIT/ML INSULN PEN SUBCUT ×5 (05:56→20:16)
--- NOTE | 2020-08-08 06:27 | PC.NURSE ---
Home Demonstrator Note-Patient dozed intermittently, no c/o pain or abdominal discomfort. Peace draining hematuria, few clots noted in tubing, 1000ml UOP. CBG Q4h 279, 236, ss Novolog coverage given per algorithm. SR/SA w/ PACs, VSS. SO slept in room overnight.
--- NOTE | 2020-08-08 07:53 | CM.DPC ---
Addendum entered by ROBIN Lawson 08/08/20 14:59: PASRR completed, waiting for updated COVID as unclear timeline for d/c. SW met bedside with pt and Life Partner and updated on acceptance at [facility] and both very appreciative and agreeable with SNF at d/c. Pt still agreeable with SW updating his Dtr/DPOA Bridget on d/c plans. SW called Bridget [phone] and explained role and updated on d/c plan to [facility] and she is thankful and agreeable with SNF but discussed the complex family dynamics with pt's life partner Stephanie and her ETOH abuse and the challenges with Stephanie's son living in pt's home off and on. Dtr states that she is now taking a step back and setting up some boundaries for herself as pt continues to put Stephanie first and not take care of himself or set up a safer plan for Stephanie. Dtr Bridget is hopeful that her Aunt flying in from [place] will be able to create a better plan for pt's life partner. Plan: SW to follow for d/c to [facility] when medically stable and getting updated COVID closer to discharge. BF Original Note: DCP SNF Planning: Return message from October at [facility] confirming that she reviewed pt and can accept when he is stable for d/c and has his Medicare qualifying stay (would be eligible for SNF tomorrow 08/09/20) and will just need updated COVID prior to d/c. Plan: SW to follow for updating pt on [facility] acceptance and further PT assessment of pt on progress today. PASRR to be completed today in anticipation of SNF. ROBIN Lawson
[2020-08-08 08:00] VITALS: BP 110/60; PULSE 85; RESP 17; TEMP 37.4; O2SAT 95
[2020-08-08] MEDS: INSULIN GLARGINE 100 UNIT/ML 3ML PEN 30 UNIT SUBCUT (08:34)
[2020-08-08] MEDS: ENOXAPARIN 40 MG/0.4 ML SYRINGE SUBCUT (08:40)
[2020-08-08] MEDS: CLOPIDOGREL 75 MG TABLET PO (08:40)
[2020-08-08] MEDS: TAMSULOSIN 0.4 MG CAPSULE PO (08:40)
[2020-08-08] MEDS: ASPIRIN EC 81 MG TABLET PO (08:40)
[2020-08-08] MEDS: FINASTERIDE 5 MG TABLET PO (08:40)
[2020-08-08] MEDS: DOCUSATE 100 MG CAPSULE PO ×2 (08:40→20:17)
[2020-08-08] MEDS: SODIUM CHLORIDE 0.9% FLUSH 10 ML IV ×2 (08:41→20:18)
--- NOTE | 2020-08-08 10:35 | OT.IP.EVAL ---
Current Diagnoses Type 2 diabetes mellitus with ketoacidosis without coma (08/06/20) Calculus of kidney (08/06/20) Retention of urine, unspecified (08/06/20) Family history of malignant neoplasm of prostate (08/06/20) Past Medical History (Last Updated 08/07/20 @ 19:04 by Seamus Almanza MD) Acquired hypothyroidism (03/30/15) Benign non-nodular prostatic hyperplasia with lower urinary tract symptoms (03/30/15) Bullous impetigo Chickenpox Coronary artery disease involving [place] coronary artery of [place] heart without angina pectoris (03/30/15) Degenerative disc disease, lumbar Diabetes type 2, uncontrolled Essential hypertension (03/30/15) Family history of prostate cancer Foraminal stenosis of lumbosacral region (07/02/17) Fracture of medial condyle of femur Gastroesophageal reflux disease without esophagitis (03/30/15) Kidney stone on left side Kidney stones Left foot drop (12/30/16) Measles Mixed hyperlipidemia (03/30/15) Obstructive sleep apnea of adult (~2003) Primary insomnia (~2003) Primary osteoarthritis of both hips (07/02/17) Primary osteoarthritis of left knee (07/02/17) Sciatica Urinary retention Surgical History (Last Reviewed 08/07/20 @ 19:01 by Seamus Almanza MD) S/P angioplasty with stent S/P appendectomy (2007) S/P coronary artery bypass graft x 4 S/P partial thyroidectomy (~1999) S/P vasectomy Status post coronary angioplasty Occupational Therapy Inpatient Evaluation/Re-Eval M M1 PT/OT-IP Prior Functional Status Start: 08/08/20 10:39 Freq: NEEDED Status: Active Protocol: Document 08/08/20 10:39 [facility] (Rec: 08/08/20 10:57 [facility] [id number]) Medical Review Prior Functional Status Medical History Reviewed Yes Communication able to make needs known Mobility and Gait Per PT eval-pt stated that he is modified independent with all mobilities and ambulation without AD but stated that he bounces from one furniture/ wall to the other and that he has balance problems and has fallen 3 times in the last 3 month or so. stated that he is still driving. On OT eval pt states uses walking staff to help walk around otherwsie bounces off of casillas and furniture to assist with his balance. Activities of Daily Living and IADL's Pt states that he has to lean his head on the wall in order to get his pants up and initially has to sit to help get clothing over his feet. Pt states that he pays the bills and takes his own medications . Prior Functional Level (Other details) pt stated that he had h/o L femur fx and that L LE is not working Social History Household Members significant other Living Arrangements House Number of Floors (Floors) Two Floors Number of Stairs To Enter/Railing? pt stays on main level of the house; 3 steps to enter without rails Home Environment Standard Height Toilet,Tub/ Shower Additional Social History Comment pt stated that he usually take a bath: sits on EOB tub and goes to the bottom of the tub and get up on all fours to be able to stand and out of the tub M2 OT-IP Current Condition Start: 08/08/20 10:39 Freq: Status: Active Protocol: Document 08/08/20 10:39 [facility] (Rec: 08/08/20 10:57 [facility] [id number]) Occupational Therapy Current Condition Current Condition Evaluation Date 08/08/20 Treatment Diagnosis Diabetic ketoacidosis, decreased mobility Diagnosis Onset Date 08/06/20 M3 OT- IP Subjective and Pain Start: 08/08/20 10:39 Freq: Status: Active Protocol: Document 08/08/20 10:39 [facility] (Rec: 08/08/20 10:57 [facility] [id number]) OT- Subjective Occupational Therapy Visit Type Type Initial Evaluation Visit Start Time 09:55 Visit Stop Time 10:35 Total Visit Minutes 40 Occupational Therapy Visit Comments Patient Comments Pt wanting to stand up as uncomfortable sitting as having catheter in place. Patient/Caregiver Goals To go to rehab. OT Pain Assessment Pain When Pain Assessed At Rest Pain Present Pain Present Pain Reported M4 OT- IP ADL's Start: 08/08/20 10:39 Freq: Status: Active Protocol: Document 08/08/20 10:39 [facility] (Rec: 08/08/20 10:57 [facility] [id number]) OT [id number] Comments OT Self-Feeding Comments NOt at meal time. OT ADL-Grooming Comments OT Grooming Comments Pt already completed after set -up while seated in the recliner. OT ADL-Dressing General Eval Lower Body Dressing Ability Maximum Assistance- assist to held sol mesh brief to help keep catheter in place and assist so pt able to sit more comfortably in the recliner. Areas Needing Assistance Underpants/Brief,Socks OT ADL-Toileting General Evaluation Toileting Ability Total Assistance Areas Needing Assistance Empty Catheter or Colostomy Comments OT Toileting Comments Peace in place OT ADL-Bathing Comments OT Bathing Comments Not performed. M5 OT- IP IADL's Start: 08/08/20 10:39 Freq: Status: Active Protocol: Document 08/08/20 10:39 [facility] (Rec: 08/08/20 10:57 [facility] [id number]) OT-Instrumental Activities of Daily Living Home Safety Awareness Ability to Problem Solve Emergency Able to Problem Solve Situations Medication Management Medication Management Comments Pt states open to have assist for needs at this time. Money Management Money Management Comments Pt states open to have assist for needs at this time. Meal Preparation Meal Preparation Comments Pt states open to have assist for needs at this time. Wire Frame Lampshade Maker Wire Frame Lampshade Maker Comments Pt states open to have assist for needs at this time. Driving Driving Comments Pt states in the past year has noticed that he is unable to keep the foot on the accelerator at an even pace and states starts off at 60mph and then notices that it drops to 48mph. Per PT eval noted pt has right foot drop. M6 OT- IP Functional Cognition Start: 08/08/20 10:39 Freq: Status: Active Protocol: Document 08/08/20 10:39 [facility] (Rec: 08/08/20 10:57 [facility] [id number]) Cognitive Factors Limiting Selfcare Function Cognitive Ability Level of Alertness Alert Patient Orientation Name,Place,Situation Attention Span Ability Capable of Focused Attention, Capable of Sustained Attention Ability to Follow Commands Able to Follow One Step Commands Safety Awareness Underestimates Need for Assistance Cognitive Comments Cognitive Assessment Comments Pt able to follow commands. Pt a bit impulsive OT- Vision and Hearing OT- Hearing Assessment OT- Hearing Assessment WFL OT- Vision Assessment Visual Acuity Glasses For Reading M7 OT- IP Mobility and Balance Start: 08/08/20 10:39 Freq: Status: Active Protocol: Document 08/08/20 10:39 [facility] (Rec: 08/08/20 10:57 [facility] [id number]) OT- Bed Mobility Assessment Sit to Supine Sit to Supine Assist Minimal Assistance OT-Transfer Assessment Sit to and From Stand Sit to and from Stand Moderate Assistance Transfers Transfer Ability Moderate Assistance Technique Transfer Destination Bed,Chair Transfer Technique Stand Step Pivot Devices Transfer Assistive Devices Gait Belt,Front Wheeled Walker Comments Mobility Comments Sit to stand MODA x1 and having loss of balance and needing MODA x 1 to regain his balance. OT- Balance Assessment Sitting Balance and Reactions Static Sitting Balance Ability Good Dynamic Sitting Balance Ability Fair Standing Balance and Reactions Static Standing Balance Ability Poor M8 OT- IP Objective Assessments Start: 08/08/20 10:39 Freq: Status: Active Protocol: Document 08/08/20 10:39 [facility] (Rec: 08/08/20 10:57 [facility] [id number]) OT Gross Range of Motion Upper Extremity Range of Motion Assessment Within Functional Limits OT Strength Upper Extremity Strength Assessment Within Functional Limits OT- Coordination Assessment Upper Extremity Finger to Nose Test Right UE Impaired Comments Coordination Comments LUE 34 seconds and 10% for age and RUE non dominant hand 1 min and 3 second. 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 OT-Muscle Tone Assessment Muscle Tone WNL Yes OT Sensation Assessment Comments Summary Comments Inact for light touch BUE, right arm slight increased time for propioception and kinesthesia. M9 OT- IP Assessment and Plan Start: 08/08/20 10:39 Freq: Status: Active Protocol: Document 08/08/20 10:39 [facility] (Rec: 08/08/20 10:57 [facility] [id number]) OT Summary Assessment and Plan Potential Rehabilitation Potential Good Analytic Complexity at Evaluation Low Summary OT Impairments Balance,Coordination, Functional Cognition, Functional Mobility,Grooming, Dressing,Toileting,Bathing, Toilet Transfers,Shower Transfers,Activity Tolerance Progress Towards Goals Slow Progress due to Pain,Slow Progress due to Medical Issues,Slow Progress due to Activity Tolerance Assessment Summary Pt here due to diabetic ketoacidosis and main barriers are decreased mobility and currently needing extensive assist for LB dressing needs, balance, decreased coordination, heavy use of arms on FWW and assist for mobility needs. Pt would benefit from skilled rehab prior to going home. Goals Grooming Goal Independent Dressing Goal Independent Toileting Goal Independent Bathing Goal Independent Toilet Transfer Goal Independent Shower Transfer Goal Independent Days to Meet Goals 14 Frequency of Treatment Frequency Of Treatment Once a Day Treatment Plan OT Treatment Plan ADL Training,Functional Cognition Training,Functional Mobility,Patient/Family Education,Discharge Planning Other Treatment Recommendations and Next shower Treatment Focus Discharge Recommendations OT Discharge Recommendations SNF Rehab Home Equipment Needs Defer to SNF Transportation Needs at Discharge Private Vehicle,Wheelchair/ Cabulance
--- NOTE | 2020-08-08 10:47 | PT.IPTN ---
Current Diagnoses Type 2 diabetes mellitus with ketoacidosis without coma (08/06/20) Calculus of kidney (08/06/20) Retention of urine, unspecified (08/06/20) Family history of malignant neoplasm of prostate (08/06/20) Physical Therapy Treatment Note M2 PT-IP Current Condition Start: 08/07/20 13:37 Freq: NEEDED Status: Active Protocol: Document 08/07/20 11:39 AB (Rec: 08/07/20 13:58 AB [email or web address]) Physical Therapy Current Condition Current Condition Evaluation Date 08/07/20 Treatment Diagnosis diabetic ketoacidosis; difficulty in walking Onset Date 08/06/20 Precautions Other Precautions falls M3 PT-IP Subjective Start: 08/07/20 13:37 Freq: NEEDED Status: Active Protocol: Document 08/08/20 10:22 SP (Rec: 08/08/20 13:10 SP [id number]) Subjective Physical Therapy Visit Type Type Treatment Note Visit Start Time 10:22 Visit Stop Time 10:47 Total Visit Minutes 25 Notes in room and pt working with OT when arrived. CO Tx with OT for mobility transfer and gait. Number of ORCHID HAND Visits 1 Physical Therapy Visit Comments Patient Comments I feel am doing alot better today and want to try walking in room to get stronger. Patient Goals Eventually return home with but agreeable to go to SNF to get stronger first. Therapy Pain Assessment Pain Present Pain Present Denied Pain M4 PT-IP Mobility and Gait Start: 08/07/20 13:37 Freq: NEEDED Status: Active Protocol: Document 08/08/20 10:22 SP (Rec: 08/08/20 13:10 SP [id number]) PT-Bed Mobility Assessment Sit to Supine Sit to Supine Minimal Assistance,1 Person Assistance,Bedrails Scooting Scooting to Edge of Bed Standby Assistance PT-Transfer Assessment Sit to and From Stand Sit to and from Stand Minimal Assistance,1 Person Assistance,Use of Upper Extremities Equipment Transfer Assistive Device Gait Belt,Front Wheeled Walker Orthotic/Prosthetic Devices or Brace: No Transfers Transfer Destination Bed,Chair Transfer Technique pt ambulated using FWW Transfer Ability Level of Assist Moderate Assistance,1 Person Assistance,Use of Upper Extremities Comments Mobility Comments Pt was seated in chair working with OT when arrived. CoTx with OT. Sit>stand Min A x1 Cued proper hand placement, ambulation to door and back to chair Min A of 1 using FWW, assist control speed fWW and slow descent into chair, OT managed IV pole and tubing. Sit>stand from chair Min A, SPT to bed CG- Min A w/ fWW, cued reach back Min A slow descent onto bed, Sit>supine Min A LE support, self center in bed using BUE and BLE. Reviewed LE exercises to perform in bed. Pt had call light and all needs in reach before left. Gait Assessment Gait Gait Assistance Required: Moderate Assistance,1 Person Assist Distance (Feet) 30 Able to Maintain Weight Bearing Status Yes During Gait Assistive Devices Assistive Device Gait Belt,Front Wheeled Walker Orthotic/Prosthetic Devices or Brace: No Gait Deviations General Gait Pattern Antalgic,Decreased Stride Length,Decreased Feet Clearance,Flexed Trunk,Step-to Gait,Wide Based Gait Factors Limiting Gait Function Factors Limiting Gait Function Decreased Activity Tolerance, Decreased Sensation,Decreased Strength,Difficulty Following Directions,Limited Range of Motion,Poor Balance,Poor Safety Awareness Comments Gait Comments Ambulated across room using FWW slight step over step gait Min, improved foot clearance and stride w/ L>R foot drop, Min A for slower pacing FWW approx 30 ft total. Stair Climbing Assessment Comments Stair Climbing Comments Pt has 3 stairs with no HR will need to assess when safe and prior to DC home. PT-Balance Assessment Sitting Balance and Reactions Static Sitting Balance Ability Good Dynamic Sitting Balance Ability Good Standing Balance and Reactions Static Standing Balance Ability Poor Dynamic Standing Balance Ability Poor Device Used FWW M5 PT-IP Objective Assessments Start: 08/07/20 13:37 Freq: NEEDED Status: Active Protocol: Document 08/07/20 11:39 AB (Rec: 08/07/20 13:58 AB [id number]) Orientation Orientation/Cognition Level of Alertness Alert Orientation Name,Place,Situation Language Function Ability No Deficits Noted Safety Awareness Decreased Safety Awareness Memory Description No Deficits Noted Gross Range of Motion Lower Extremity ROM Assessment Within Functional Limits Strength Lower Extremity Strength Assessment Bilaterally Impaired Knee L knee: 3+/5 ; R knee 4-/5 Ankle bilateral foot drop L>R Sensation Assessment Sensation Gross Sensation Right LE Impaired,Left LE Impaired Light Touch Impaired Proprioception (Position) Impaired Comments Sensation Comments decrease sensation on BLE from the knee down to B feet but able to feel some per pt Muscle Tone Muscle Tone WNL Yes M6 PT-IP Treatment Start: 08/07/20 13:37 Freq: NEEDED Status: Active Protocol: Document 08/08/20 10:22 SP (Rec: 08/08/20 13:10 SP [id number]) Physical Therapy Treatment Exercises Exercises Ankle Pumps,Gluteal Sets,Quad Sets,Heel Slides,Straight Leg Raises,Supine Hip Abduction, Seated Knee Flexion/Extension Knee ROM Measurement 100 deg Education Education Provided Safety M7 PT-IP Assessment and Plan Start: 08/07/20 13:37 Freq: NEEDED Status: Active Protocol: Document 08/08/20 10:22 SP (Rec: 08/08/20 13:10 SP [id number]) PT Summary Assessment and Plan Potential Rehabilitation Potential Fair Status of Condition at Evaluation Evolving Summary Impairments Pain,ROM,Strength,Balance, Coordination,Sensation,Tone, Cognition,Bed Mobility, Transfers,Gait,Activity Tolerance Progress Towards Goals Progressing Toward Goals,Slow Progress due to Medical Issues ,Slow Progress due to Activity Tolerance Assessment Summary Pt is requiring min A with min cuing with ambulation using fWW. Pt continues to be impulsive at times, decreased safety awareness. pt continues to present but improved with B foot drop and decrease sensation affecting standing balance and ambulation. pt will require SNF rehab at this time. will continue to assess progress. Goals Bed Mobility Goal Independent Transfer Goal Contact Guard Assistance,Front Wheeled Walker Gait Goal Contact Guard Assistance,Front Wheel Walker Gait Distance 50 Other Goals ambulation using FWW SBA 150 ft up/down 3 steps using AD/ without AD min A and cues. Days to Meet Goals 10 Frequency of Treatment Frequency Of Treatment Once a Day Treatment Plan Physical Therapy Treatment Plan Bed Mobility Training,Transfer Training,Gait Training, Therapeutic Exercise,Balance Retraining,Discharge Planning, Hot or Cold Pack,Neuromuscular Re-ed,Coordination Retraining ,Manual Therapy Other Recommendations and Next Treatment bed mob, transfers, gait using Focus FWW Precautions Other Precautions falls Recommendations To Nursing Amount of Assist Needed 1 Person Assist Discharge Recommendations PT Discharge Recommendations SNF Rehab Equipment Needed for Home Before FWW if pt goes home Discharge Transportation Needs at Discharge Wheelchair/Cabulance
[2020-08-08 11:30] VITALS: BP 109/55; PULSE 87; RESP 18; TEMP 37.4; O2SAT 99
--- NOTE | 2020-08-08 12:32 | PM.PN.1 ---
Subjective Subjective Date Patient Seen: 08/08/20 Time Patient Seen: 08:32 Interval history: Feels improved today. Had gomes placed yesterday with 1.9L pink tinged urine immediately removed with great relief of pain. Today had much improved appetite. Blood sugars have been improving to high 200s with increasing lantus doses. Exam Vital Signs (past 8 hours): - 08/08/20 08:00 08/08/20 11:30 Temperature 99.4 F 99.3 F Pulse Rate 85 87 Respiratory Rate 17 18 Blood Pressure 110/60 109/55 L Pulse Oximetry 95 99 Oxygen Delivery Method Room Air Oxygen Flow Rate 0 Narrative Exam Narrative: ENERAL APPEARANCE: well developed, well nourished, in no acute distress. HEENT: Normocephalic, PERRLA, conjunctiva clear, EOMs intact without nystagmus, NECK/THYROID: neck supple, no JVD, no carotid bruit, no thyromegaly, trachea midline. LYMPH NODES: no cervical or supraclavicular lymphadenopathy. SKIN: [place], warm and dry, no visible lesions, rashes, ulcerations. HEART: regular rate, regular rhythm, S1-S2, no murmur, no rubs or gallops, no edema . LUNGS: clear bilaterally CHEST: Symmetrical movement, no accessory muscle use, good tidal volume. ABDOMEN: Soft, no distention, no abdominal tenderness, no organomegaly, no flank tenderness, active bowel tones. EXTREMITIES: moves all extremities, strength is 5/5 and symmetrical, no Clubbing or cyanosis. : gomes in place draining pink tinged urine NEUROLOGIC: AAO x4, no focal neurologic deficits, cranial nerves II-XII grossly intact, diminished sensation left leg, hearing grossly normal to speech. PSYCH: briskly responsive limited insight, cooperative, appropriate with stable behavior Objective Labs Result Diagrams: 08/08/20 04:35 08/08/20 04:35 Labs: Laboratory Results - last 24 hr 08/07/20 08/08/20 08/08/20 17:13 04:35 04:35 WBC 7.1 RBC 3.61 L Hgb 10.9 L Hct 32.6 L MCV 90.4 MCH 30.3 MCHC 33.5 RDW 15.8 H Plt Count 238 Sodium 129 L 132 L Potassium 4.0 4.0 Chloride 97 L 101 Carbon Dioxide 21 L 23 BUN 26 H 24 H Creatinine 1.54 H 1.09 Estimated GFR 44.1 L > 60.0 BUN/Creatinine Ratio 16.9 22.0 Glucose 328 H D 236 H Calcium 8.6 8.2 L Phosphorus 4.8 H Magnesium 2.1 PFSH Medical History (Updated 08/07/20 @ 19:04 by Seamus Almanza MD) Acquired hypothyroidism (03/30/15) Benign non-nodular prostatic hyperplasia with lower urinary tract symptoms (03/30/15) Bullous impetigo Chickenpox Coronary artery disease involving [place] coronary artery of [place] heart without angina pectoris (03/30/15) Degenerative disc disease, lumbar Diabetes type 2, uncontrolled Essential hypertension (03/30/15) Family history of prostate cancer Foraminal stenosis of lumbosacral region (07/02/17) Fracture of medial condyle of femur Gastroesophageal reflux disease without esophagitis (03/30/15) Kidney stone on left side Kidney stones Left foot drop (12/30/16) Measles Mixed hyperlipidemia (03/30/15) Obstructive sleep apnea of adult (~2003) Primary insomnia (~2003) Primary osteoarthritis of both hips (07/02/17) Primary osteoarthritis of left knee (07/02/17) Sciatica Urinary retention Surgical History S/P angioplasty with stent S/P appendectomy (2007) S/P coronary artery bypass graft x 4 S/P partial thyroidectomy (~1999) S/P vasectomy Status post coronary angioplasty Family History Brother Prostate cancer Mother Diabetes mellitus Hypertension Stroke Father Prostate cancer Brother Prostate cancer Social History details: Single, but with same partner 35+ years, has children and now grandkids household members: significant other occupational status: previously employed Smoking Status: Never smoker alcohol intake: former substance use type: does not use Assessment & Plan Assessment & Plan narrative: 75-year-old male patient with a past medical history significant for coronary artery disease (see S/P CABG x4, multiple PCI, stents) congestive failure with preserved ejection fraction, hypertension, hyperlipidemia, diet-controlled diabetes, BPH with urinary symptoms, HERMELINDA on CPAP and osteoarthritis who presents to the ER with complaints of continuing frequent urination following being evaluated yesterday in the emergency department found to be hyperglycemia with blood sugar of 715. The patient was evaluated, rehydrated and discharged home with a prescription for metformin 500 mg twice daily which does not appear to have been started. 1. Diabetic ketoacidosis, acute, present on admission, active -patient previously diagnosed with diet-controlled diabetes. Patient seen in the ER with serum glucose is 714 and a hemoglobin A1c of greater than 14. -patient returned for continued complaints of frequent urination is found to be significantly dehydrated with tachycardia and serum ketones of 6.4. -08/06 was on insulin drip which was then stopped in early the morning -now eating a diet, and so switched to lantus SC at 20U BID, which was increased for continued hyperglycemia to 30U BID 2. Chronic congestive heart failure with preserved ejection fraction, chronic, stable -patient has a complex cardiac history with CABG and multiple PCIs and stent. Most recent echo (2018) found EF to be 60-65%. -patient with elevated proBNP at 764, chest x-ray without evidence of congestive failure. -will be conservative in rehydration to prevent complications with normal saline -will continue routine home medications of lisinopril 5 mg daily and metoprolol tartrate 25 mg twice daily. 3. Coronary artery disease, chronic, stable. -patient has a complex cardiac history with CABG and multiple PCIs and stent. -patient denies complaints of chest pain. -will continue aspirin 81 mg and clopidogrel 75 mg daily. -telemetry. 4. Hypertension, chronic, stable -patient has a blood pressure of 150/85 upon arrival to the ER. -will continue routine medications of lisinopril and metformin as above 5. Hyperlipidemia, chronic, stable. -continue current home regimen of atorvastatin 80 mg daily. 6. Acquired hypothyroidism, chronic, stable. -patient status post partial thyroidectomy. -continue home regimen of levothyroxine 175 mcg daily. -will check TSH and free T4. 7. Acute urinary retention, active -difficult gomes placement -requested urology consult 8. Hematuria, active -secondary to difficult gomes placement -stop lovenox, and switch to SCDs VTE prophylaxis: SCDs IV fluid: Normal saline 125 cc per Diet: Diabetic Code status: Full code, the patient designates his daughter Eboni to be his surrogate decision maker. The patient is admitted to the hospital due to the severity of his ongoing symptoms unresolved with outpatient treatment. The patient is admitted to the ICU for IV insulin infusion requiring close monitoring prevent complications and untoward events.
[2020-08-08] MEDS: ACETAMINOPHEN 325 MG TABLET 650 MG PO ×2 (12:51→20:17)
[2020-08-08 16:40] VITALS: BP 108/56; PULSE 89; RESP 17; TEMP 36.3; O2SAT 98
--- NOTE | 2020-08-08 19:12 | PC.NURSE ---
Noted that gomes not draining, irrigated with 10ccNS, cath immediately drained 850cc bloody unine without clots.
[2020-08-08] MEDS: INSULIN GLARGINE 100 UNIT/ML 3ML PEN 40 UNIT SUBCUT (20:15)
[2020-08-08] MEDS: MELATONIN 3 MG TABLET 6 MG PO (20:18)
[2020-08-08] MEDS: ATORVASTATIN 20 MG TABLET 80 MG PO (20:18)
[2020-08-08 20:47] VITALS: BP 98/57; PULSE 85; RESP 17; TEMP 36.9; O2SAT 96
[2020-08-08] MEDS: TRAMADOL 50 MG TABLET PO (22:34)
[2020-08-08 23:32] VITALS: BP 105/61; PULSE 95; RESP 19; TEMP 36.4; O2SAT 96
[2020-08-09] MEDS: methocarbamoL 500 MG TABLET PO (02:54)
[2020-08-09 03:09] VITALS: BP 109/62; PULSE 92; RESP 17; TEMP 36.4; O2SAT 96
[2020-08-09] MEDS: TRAMADOL 50 MG TABLET PO (04:54)
[2020-08-09] MEDS: ACETAMINOPHEN 325 MG TABLET 650 MG PO (04:55)
[2020-08-09 04:56] LABS: Hematocrit 31.4 % (41-53); Hemoglobin 10.4 g/dL (13.5-17.5); Mean Corpuscular HGB Conc 33.2 % (30-36); Mean Corpuscular Hemoglobin 30.3 PG (26-34); Mean Corpuscular Volume 91.3 fL (80-100); Platelet Count 254 X10^3/uL (150-400); Red Blood Cell Count 3.44 X10^6/uL (4.5-5.9); Red Cell Distribution Width 16.2 % (11.6-14.8)
[2020-08-09 05:07] LABS: BUN Creatinine Ratio 21.1 (6-22); Blood Urea Nitrogen 19 mg/dL (9-20); Calcium 8.6 mg/dL (8.4-10.2); Carbon Dioxide 22 mmol/L (22-32); Chloride 104 mmol/L (98-107); Estimated Glomerular Filt Rate > 60.0 mL/min (>60); Glucose 241 mg/dL (80-110); HEMOLYSIS < 15 (0-50); Potassium 4.3 mmol/L (3.4-5.1); Sodium 132 mmol/L (137-145)
[2020-08-09] MEDS: LEVOTHYROXINE 100 MCG TABLET PO (06:08)
[2020-08-09] MEDS: LEVOTHYROXINE 75 MCG TABLET PO (06:08)
[2020-08-09 07:00] VITALS: BP 106/60; PULSE 79; RESP 17; TEMP 36.8; O2SAT 97
[2020-08-09] MEDS: DOCUSATE 100 MG CAPSULE PO (08:04)
[2020-08-09] MEDS: INSULIN GLARGINE 100 UNIT/ML 3ML PEN 40 UNIT SUBCUT (08:05)
[2020-08-09] MEDS: TAMSULOSIN 0.4 MG CAPSULE PO (08:05)
[2020-08-09] MEDS: ASPIRIN EC 81 MG TABLET PO (08:05)
[2020-08-09] MEDS: INSULIN ASPART 100 UNIT/ML INSULN PEN SUBCUT ×2 (08:05→12:51)
[2020-08-09] MEDS: CLOPIDOGREL 75 MG TABLET PO (08:05)
[2020-08-09] MEDS: FINASTERIDE 5 MG TABLET PO (08:05)
[2020-08-09] MEDS: SODIUM CHLORIDE 0.9% FLUSH 10 ML IV (08:05)
[2020-08-09 11:00] VITALS: BP 99/58; PULSE 62; RESP 18; TEMP 36.3; O2SAT 99
--- NOTE | 2020-08-09 11:47 | CM.DPC ---
Addendum entered by Adore Ballard LPN 08/09/20 12:45: All needed info for the snf d/c is now in place and faxed to [facility]. TIA Bradley is aware. Addendum entered by Adore Ballard LPN 08/09/20 12:06: IMM #2 given to pt as per protocol. Original Note: DCP: continued: case received and note the d/c plan for [facility] when stable for same. DC order has been placed by Dr. Sultana but thus far the snf specific orders are not in place. Met with pt who remains agreeable to the d/c the [facility] today. TIA Bradley is updated. Obtaining rapid COVID test. PASRR: completed yesterday by ROBIN Verdin is reviewed and faxed to [facility] At this time because orders are not completed w/c van transport with o2 tank is being set up by [facility] for 1400. Will obtain report # for RN nurse/nurse and follow for the completion of the orders. P: SVCR: pending above: 1400 today to [facility]
--- NOTE | 2020-08-09 11:50 | PT.IPTN ---
Current Diagnoses Type 2 diabetes mellitus with ketoacidosis without coma (08/06/20) Calculus of kidney (08/06/20) Retention of urine, unspecified (08/06/20) Family history of malignant neoplasm of prostate (08/06/20) Physical Therapy Treatment Note M2 PT-IP Current Condition Start: 08/07/20 13:37 Freq: NEEDED Status: Active Protocol: Document 08/07/20 11:39 AB (Rec: 08/07/20 13:58 AB [id number]) Physical Therapy Current Condition Current Condition Evaluation Date 08/07/20 Treatment Diagnosis diabetic ketoacidosis; difficulty in walking Onset Date 08/06/20 Precautions Other Precautions falls M3 PT-IP Subjective Start: 08/07/20 13:37 Freq: NEEDED Status: Active Protocol: Document 08/09/20 11:32 CLB (Rec: 08/09/20 13:23 CLB [id number]) Subjective Physical Therapy Visit Type Type Treatment Note Visit Start Time 11:32 Visit Stop Time 11:50 Total Visit Minutes 18 Number of ASSESSMENT RN Visits 2 Physical Therapy Visit Comments Patient Comments Pt willing to work with therapy Therapy Pain Assessment Pain Present Pain Present Denied Pain M4 PT-IP Mobility and Gait Start: 08/07/20 13:37 Freq: NEEDED Status: Active Protocol: Document 08/09/20 11:32 CLB (Rec: 08/09/20 13:23 CLB [id number]) PT-Bed Mobility Assessment Supine to Sit Supine to Sit Standby Assistance Sit to Supine Sit to Supine Standby Assistance,Bedrails PT-Transfer Assessment Sit to and From Stand Sit to and from Stand Contact Guard Assistance,1 Person Assistance,Use of Upper Extremities Equipment Transfer Assistive Device Gait Belt,Front Wheeled Walker Orthotic/Prosthetic Devices or Brace: No Transfers Transfer Destination Bed Transfer Technique pt ambulated using FWW Transfer Ability Level of Assist Contact Guard Assistance,1 Person Assistance,Use of Upper Extremities Comments Mobility Comments Pt in bed and able to get to EOB from supine with HOB elevated SBA.Pt stood CGA and ambulated ~75ft w/FWW/CGA. Pt then returned to room sitting on EOB CGA and then to supine SBA. Pt performed ther ex in supine. Pt left in bed with all needs within reach. SO Stephanie present. Gait Assessment Gait Gait Assistance Required: Contact Guard Assist,1 Person Assist Distance (Feet) 75 Able to Maintain Weight Bearing Status Yes During Gait Assistive Devices Assistive Device Gait Belt,Front Wheeled Walker Orthotic/Prosthetic Devices or Brace: No Gait Deviations General Gait Pattern Antalgic,Decreased Stride Length,Decreased Feet Clearance,Flexed Trunk,Step-to Gait,Wide Based Gait Factors Limiting Gait Function Factors Limiting Gait Function Decreased Activity Tolerance, Decreased Sensation,Decreased Strength,Difficulty Following Directions,Limited Range of Motion,Poor Balance,Poor Safety Awareness Comments Gait Comments Pt ambulated with step thru gait pattern and steady gait requiring CGA. M5 PT-IP Objective Assessments Start: 08/07/20 13:37 Freq: NEEDED Status: Active Protocol: Document 08/07/20 11:39 AB (Rec: 08/07/20 13:58 AB [id number]) Orientation Orientation/Cognition Level of Alertness Alert Orientation Name,Place,Situation Language Function Ability No Deficits Noted Safety Awareness Decreased Safety Awareness Memory Description No Deficits Noted Gross Range of Motion Lower Extremity ROM Assessment Within Functional Limits Strength Lower Extremity Strength Assessment Bilaterally Impaired Knee L knee: 3+/5 ; R knee 4-/5 Ankle bilateral foot drop L>R Sensation Assessment Sensation Gross Sensation Right LE Impaired,Left LE Impaired Light Touch Impaired Proprioception (Position) Impaired Comments Sensation Comments decrease sensation on BLE from the knee down to B feet but able to feel some per pt Muscle Tone Muscle Tone WNL Yes M6 PT-IP Treatment Start: 08/07/20 13:37 Freq: NEEDED Status: Active Protocol: Document 08/09/20 11:32 CLB (Rec: 08/09/20 13:23 CLB [id number]) Physical Therapy Treatment Exercises Exercises Ankle Pumps,Gluteal Sets,Quad Sets,Heel Slides,Straight Leg Raises M7 PT-IP Assessment and Plan Start: 08/07/20 13:37 Freq: NEEDED Status: Active Protocol: Document 08/09/20 11:32 CLB (Rec: 08/09/20 13:23 CLB [id number]) PT Summary Assessment and Plan Potential Rehabilitation Potential Fair Status of Condition at Evaluation Evolving Summary Impairments Pain,ROM,Strength,Balance, Coordination,Sensation,Tone, Cognition,Bed Mobility, Transfers,Gait,Activity Tolerance Progress Towards Goals Progressing Toward Goals Assessment Summary Pt improving with ability to get to EOB SBA and ambulates ~ 75ft w/FWW/CGA. Pt impulsive at times requiring cues for safety during transfers and gait. Pt will benefit from SNF rehab at this time. Goals Bed Mobility Goal Independent Transfer Goal Contact Guard Assistance,Front Wheeled Walker Gait Goal Contact Guard Assistance,Front Wheel Walker Gait Distance 50 Other Goals ambulation using FWW SBA 150 ft up/down 3 steps using AD/ without AD min A and cues. Days to Meet Goals 10 Frequency of Treatment Frequency Of Treatment Once a Day Treatment Plan Physical Therapy Treatment Plan Bed Mobility Training,Transfer Training,Gait Training, Therapeutic Exercise,Balance Retraining,Discharge Planning, Hot or Cold Pack,Neuromuscular Re-ed,Coordination Retraining ,Manual Therapy Precautions Other Precautions falls Recommendations To Nursing Amount of Assist Needed 1 Person Assist Discharge Recommendations PT Discharge Recommendations SNF Rehab Equipment Needed for Home Before FWW if pt goes home Discharge Transportation Needs at Discharge Wheelchair/Cabulance
[2020-08-09 12:05] LABS: COVID19 -Nasal RAPID Negative (Negative)
--- NOTE | 2020-08-09 13:34 | PC.NURSE ---
Pt to dc to SNF today at 1400. Pt is agreeable to this plan. Called report to Heidy at [facility].
--- NOTE | 2020-08-09 20:17 | PM.DS.1 ---
History of Present Illness History of Present Illness Chief complaint: Weakness Narrative: Per H and P from [facility]: Mr. Stephan Cook this 75-year-old male patient with a past medical history significant for coronary artery disease (see S/P CABG x4, multiple PCI, stents) congestive failure with preserved ejection fraction, hypertension, hyperlipidemia, diet-controlled diabetes, BPH with urinary symptoms, HERMELINDA on CPAP and osteoarthritis who presents to the ER with complaints of frequent urination. Patient was seen in the ER yesterday for similar complaint and diagnosed with hyperglycemia with blood sugar of 715. Patient was treated with rehydration and started on metformin and discharged to home with a prescription for metformin 500 mg twice daily which was not started. the patient reports frequent small voids ongoing for the last 3 days. Yesterday on the CT scan a 5 mm stone was identified in the proximal ureter with perinephric stranding and blood in the urine however no leukocyte esterase or nitrites. Patient additionally reports that became quite ill since seen Dr. Macdonald in May and believes he had COVID-19 infection. Reports he has felt very poorly since and had lost his sense of smell and taste as well as appetite. He reports eating ice cream and drinking copious water but was unable to quench his thirst. He states he was told he was a borderline diabetic previously and had not been checking blood sugars. The patient reports no complaints of fevers or chills, headaches or dizziness, falls or trauma. He has had no nasal congestion or sore throat.Denies complaints of chest pain palpitations and reports no shortness of breath cough or wheezing. He denies epigastric or abdominal pain and has had no nausea vomiting. The patient states he has not had a bowel movement in 4 days and feels constipated. CT scan yesterday did not identify significant stool loading. The patient reports that his left leg has diminished sensation since he had a fractured femur however his right foot has recently had sharp shooting pains. Upon arrival the patient is afebrile with temperature 98.1?, heart rate 116, blood pressure 150/85, respirations of 22 saturating 95% on room air. Chest x-ray abdominal films were obtained which found no acute findings. Patient had a CT of the abdomen pelvis shows some which found a 5 mm proximal ureteral stone with mild hydronephrosis perinephric stranding, colonic and duodenal diverticulosis. Urinalysis yesterday for the found a specific gravity of 1.005, positive glucose, ketones and blood but negative for nitrites or leukocyte esterase. Twelve lead EKG today is sinus tachycardia rate 105 without ectopy or block, no ST or T-wave changes and no Q-waves, unchanged from previous tracing. On laboratory analysis today the patient has white count of 10.1 with no shift, hemoglobin of 13.6, hematocrit of 41.8, platelets 429. He is mildly hyponatremic with a sodium of 133, potassium is 4.8 and magnesium is 2.5. He has a [employer]PER[employer] of 17. His BUN is 18 and creatinine 0.98. His nonfasting glucose is 514. His liver functions are all within normal limits. He has lactic acid 1.6. On VBG has a pH of 7.32, bicarb of 19 with a base excess of -7. He has a total CK of 46 and troponin of less than 0.012. His proBNP is elevated and sevens 64. Serum ketones are 6.4. The hemoglobin A1c was obtained yesterday which was greater than 14. The patient is admitted to the hospitalist service for diabetic ketoacidosis. Discharge Providers Provider Date of admission: 08/06/20 03:58 Discharge Date: 08/09/20 Primary care physician: Hansel Jones MD Consults: 08/06/20 05:34 Consult to Dietitian, Adult Routine Comment: Reason For Exam: DKA, previous diet control Consult to Discharge Planning Routine Comment: 08/06/20 18:53 Consult to Physical Therapy Evaluate & Treat Comment: Physician Instructions: Evaluate and Treat 08/06/20 23:46 Consult to General Surgery Routine Comment: Consulting Provider: Seamus Almanza Reason for consultation: Urinary retention, urethral stricture, unable to place catheter Has provider been notified: No 08/07/20 09:49 Consult to Occupational Therapy Evaluate & Treat Comment: Physician Instructions: Evaluate and treat Consult to Physical Therapy Evaluate & Treat Comment: Physician Instructions: Evaluate and Treat 08/09/20 02:24 Consult to Physical Therapy Evaluate & Treat Comment: Low back pain with sciatica Physician Instructions: Evaluate and Treat Discharge provider: Paco Sultana MD Summary Hospital Course Discharge Diagnosis: 1. DKA 2. Acute urinary retention, secondary to probable BPH 3. Chronic CHF with preserved EF 4. CAD, chronic 5. Hypertension 6. Hyperlipidemia 7. Hypothyroidism 8. Hematuria resolving 9. Kidney stone, non obstructing Hospital Course: Mr. Cook was initially admitted to the hospital in DKA. He had been feeling progressively worse prior to his admission with decreased appetite and had been eating ice cream and soda as that was all he could tolerate. His A1c here was >14. He was initially on an insulin drip that was able to be titrated off. He still had elevated sugars and needing uptitrating insulin. He was initially on lantus 20U SC BID, but this was increased to 40U SC BID on day of discharge, with a high dose sliding scale, with blood sugars 250s-290s. His appetite was greatly improved and with improving appetite will likely still require further titration of his new lantus. Previously he had only been on metformin. In addition he developed acute urinary retention, and had a gomes placed with great difficulty. This is likely secondary to BPH, and for his urinary symptoms he should be on tamsulosin and finasteride as per urology. He had some slight hematuria after placement that was resolving on day of discharge. He was noted to have a kidney stone per urology KUB, which was non obstructing, and he had no symptoms of pain on day of discharge and possibly passed the stone, but he should have follow up for this and his gomes with Dr. Almanza in 1-2 weeks. The rest of his medical issues were stable in the hospital. Status at Discharge Cognitive/behavioral status at discharge: oriented Functional status at discharge: independent ambulation Overall status at discharge: patient is progressing back to baseline Exam Vital Signs (past 8 hours): Oxygen Delivery Method Room Air Oxygen Flow Rate 0 Narrative Exam Narrative: GENERAL: well developed, well nourished, in no acute distress. HEENT: Normocephalic, PERRLA, conjunctiva clear, EOMs intact without nystagmus, NECK/THYROID: neck supple, no JVD, no carotid bruit, no thyromegaly, trachea midline. LYMPH NODES: no cervical or supraclavicular lymphadenopathy. SKIN: [place], warm and dry, no visible lesions, rashes, ulcerations. HEART: regular rate, regular rhythm, S1-S2, no murmur, no rubs or gallops, no edema . LUNGS: clear bilaterally CHEST: Symmetrical movement, no accessory muscle use, good tidal volume. ABDOMEN: Soft, no distention, no abdominal tenderness, no organomegaly, no flank tenderness, active bowel tones. EXTREMITIES: moves all extremities, strength is 5/5 and symmetrical, no Clubbing or cyanosis. : gomes in place draining pink tinged urine NEUROLOGIC: AAO x4, no focal neurologic deficits, cranial nerves II-XII grossly intact, diminished sensation left leg, hearing grossly normal to speech. PSYCH: pleasant mod Objective Labs Result Diagrams: 08/09/20 04:25 08/09/20 04:25 Labs: Laboratory Results - last 24 hr 08/09/20 08/09/20 08/09/20 04:25 04:25 11:27 WBC 8.0 RBC 3.44 L Hgb 10.4 L Hct 31.4 L MCV 91.3 MCH 30.3 MCHC 33.2 RDW 16.2 H Plt Count 254 Sodium 132 L Potassium 4.3 Chloride 104 Carbon Dioxide 22 BUN 19 Creatinine 0.90 Estimated GFR > 60.0 BUN/Creatinine Ratio 21.1 Glucose 241 H Calcium 8.6 SARS-CoV-2 (PCR) Negative [facility] Medical History (Updated 08/07/20 @ 19:04 by Seamus Almanza MD) Acquired hypothyroidism (03/30/15) Benign non-nodular prostatic hyperplasia with lower urinary tract symptoms (03/30/15) Bullous impetigo Chickenpox Coronary artery disease involving [place] coronary artery of [place] heart without angina pectoris (03/30/15) Degenerative disc disease, lumbar Diabetes type 2, uncontrolled Essential hypertension (03/30/15) Family history of prostate cancer Foraminal stenosis of lumbosacral region (07/02/17) Fracture of medial condyle of femur Gastroesophageal reflux disease without esophagitis (03/30/15) Kidney stone on left side Kidney stones Left foot drop (12/30/16) Measles Mixed hyperlipidemia (03/30/15) Obstructive sleep apnea of adult (~2003) Primary insomnia (~2003) Primary osteoarthritis of both hips (07/02/17) Primary osteoarthritis of left knee (07/02/17) Sciatica Urinary retention Surgical History S/P angioplasty with stent S/P appendectomy (2007) S/P coronary artery bypass graft x 4 S/P partial thyroidectomy (~1999) S/P vasectomy Status post coronary angioplasty Family History Brother Prostate cancer Mother Diabetes mellitus Hypertension Stroke Father Prostate cancer Brother Prostate cancer Social History details: Single, but with same partner 35+ years, has children and now grandkids household members: significant other occupational status: previously employed Smoking Status: Never smoker alcohol intake: former substance use type: does not use Discharge Plan Discharge Plan Patient Disposition: SNF Provider Discharge Comment: Mr. Cook was admitted for hyperglycemia that developed into DKA. He initially needed an insulin drip for blood sugars 500-700s. He improved with insulin drip and switched to SC lantus. His lantus dose was gradually increased as his appetite improved and his lantus discharge dose was 40U BID, with a high dose insulin sliding scale. His blood sugars were in the mid 250s on this regimen on day of discharge and slowly improving. He will likely need further titration of his insulin as he improves. In addition, he had urinary retention with a difficult gomes placement. He had mild hematuria afterwards with mild blood clots that need to be flushed, but this was improving on discharge. He should have gomes kept in place and follow up with Dr. Almanza in 1-2 weeks to consider gomes removal. He should remain on tamsulosin and finasteride. Discharge orders & Medications Prescriptions: New tamsulosin [Flomax] 0.4 mg Capsule 0.4 mg PO DAILY 30 Days Qty: 30 RF: 0 insulin aspart U-100 [Novolog Flexpen U-100 Insulin] 100 unit/mL (3 mL) Insulin Pen 0 unit SUBCUT ACHS 30 Days Qty: 1 RF: 0 Lantus Solostar U-100 Insulin 100 unit/mL (3 mL) Insulin Pen 40 unit SUBCUT BID 30 Days Qty: 24 RF: 0 Continued aspirin 81 MG tablet,delayed release (DR/EC) 81 mg PO Q DAY Qty: 30 RF: 11 clopidogrel [Plavix] 75 mg tablet 75 mg PO QDAY Qty: 90 RF: 3 omeprazole 20 mg capsule,delayed release(DR/EC) See Rx Instructions .ROUTE .COMPLEX Qty: 180 RF: 1 finasteride 5 mg tablet 5 mg PO DAILY Qty: 90 RF: 1 levothyroxine 175 mcg tablet 175 mcg PO DAILY Qty: 90 RF: 1 lisinopril 5 mg tablet 5 mg PO QDAY Qty: 90 RF: 3 amitriptyline 10 mg tablet See Rx Instructions .ROUTE .COMPLEX Qty: 90 RF: 3 Hold Instructions: Trial of cessation atorvastatin 80 mg tablet 80 mg PO HS Qty: 90 RF: 3 metoprolol tartrate 25 mg tablet 25 mg PO BID RF: 0 Changed clobetasol 0.05 % ointment 1 applic TOP BID Qty: 30 RF: 1 nystatin 100,000 unit/gram powder 1 applic TOP BID Qty: 30 RF: 0 Discontinued doxazosin 8 mg tablet 8 mg PO BEDTIME Qty: 90 RF: 1 oxybutynin chloride 10 mg tablet extended release 24hr 10 mg PO DAILY Qty: 90 RF: 3 metformin 500 mg tablet 500 mg PO BID Qty: 30 RF: 0 Follow up/Referrals: Hansel Jones MD [Primary Care Provider] - Discharge Health Status Multidrug resistant organism: No MDRO Diet/Activity/Treatments Diet: Carb-consistent/Diabetic Catheter: 2-way Gomes Visit Report/Discharge Packet Instructions: DI for Diabetic Ketoacidosis Discharge Data Primary Care Provider: Hansel Jones Quality MIPS - DC The patient has current or prior documentation of left ventricular ejection fraction (LVEF) less than 40%, or moderate or severely depressed left ventricular systolic function.: No
== END 2020-08-09 14:00 | DRG 637 ==
LOC: ED 03:46 → AC 04:00 → ICU 05:20
PROVIDERS: Internal Medicine; Admitting Provider Nurse Practitioner Adult Health; Emergency Provider Emergency Medicine; PCP Student in an Organized Health Care Education/Training Program; Referring Provider Emergency Medicine; Visit Provider Nurse Practitioner Adult Health
DX: E11.10 Type 2 diabetes mellitus with ketoacidosis without coma (principal); E43 Unspecified severe protein-calorie malnutrition; I50.32 Chronic diastolic (congestive) heart failure; N13.2 Hydronephrosis with renal and ureteral calculous obstruction; N17.9 Acute kidney failure, unspecified; I11.0 Hypertensive heart disease with heart failure; N40.1 Benign prostatic hyperplasia with lower urinary tract symptoms; R33.8 Other retention of urine; G47.33 Obstructive sleep apnea (adult) (pediatric); E78.5 Hyperlipidemia, unspecified; E89.0 Postprocedural hypothyroidism; I25.10 Atherosclerotic heart disease of native coronary artery without angina pectoris; Z95.1 Presence of aortocoronary bypass graft; Z95.5 Presence of coronary angioplasty implant and graft; Z80.42 Family history of malignant neoplasm of prostate; Z68.30 Body mass index [BMI] 30.0-30.9, adult; M54.42 Lumbago with sciatica, left side; M54.41 Lumbago with sciatica, right side; Z71.3 Dietary counseling and surveillance
CPT/HCPCS: 36415; 51798; 71045; 74018; 74022; 74177; 80048; 80053; 81001; 81003; 81015; 82009; 82550; 82805; 82962; 83036; 83605; 83690; 83735; 83880; 84100; 84439; 84443; 84484; 85025; 85027; 87635; 87797; 93005; 96360; 96361; 96365; 97110; 97162; 97165; 97530; 99232; 99284; C9803; J1170; J1650; Q9967

== ENCOUNTER → 2020-08-21 16:00 | Outpatient (ROUT) | payer MEDICARE, MEDICAID, SELFPAY ==
[2020-08-15 10:31] VITALS: BMI 28.5
[2020-08-21 16:16] LABS: Hemoglobin A1C% w Est Avg Glu 13.1 % (4.0-6.0)
[2020-08-21 16:31] LABS: Cholesterol 146 mg/dL (140-199); HDL Cholesterol 32 mg/dL (40-60); LDL Cholesterol Calculated 60 mg/dL (<100); Triglycerides 269 mg/dL (35-150)
[2020-08-21 16:32] LABS: Creatinine Urine Random 79.6 mg/dL
[2020-08-21 17:11] LABS: Microalbumi Creatinin Ratio Ur 923.3 ug/mg CR (<30); Microalbumin Urine Random 73.5 mg/dL (0-1.6)
== END ==
PROVIDERS: PCP Student in an Organized Health Care Education/Training Program; Visit Provider Hospitalist
DX: E11.10 Type 2 diabetes mellitus with ketoacidosis without coma (principal)
CPT/HCPCS: 80061; 82043; 82570; 83036

== ENCOUNTER → 2020-08-30 09:17 | Outpatient (CLI) | payer MEDICARE, MEDICAID, SELFPAY ==
[2020-08-15 10:31] VITALS: BMI 28.5
--- NOTE | 2020-08-30 09:21 | DI.CT.S_ITS ---
PROCEDURE: CT KIDNEY URETER BLADDER (KUB) INDICATIONS: Urinary retention TECHNIQUE: Noncontrast 5 mm thick sections acquired from the diaphragms to the symphysis. 5 mm thick coronal and sagittal reformats were then performed. For radiation dose reduction, the following was used: automated exposure control, adjustment of mA and/or kV according to patient size. COMPARISON: [facility], CT, CT ABDOMEN PELVIS W CON, 08/04/2020, 10:06. [facility], CT, KIDNEY/ URETER/BLADDER, 01/13/2016, 22:08. FINDINGS: Image quality: Excellent. Lung bases: Lung bases are clear. Heart size is normal. Urinary system: Both kidneys are normal in size. Hyperdense left and low-attenuation simple right renal foci are unchanged. There is a punctate calcification, nonobstructing in the inferior left renal pole. No hydronephrosis or perinephric fat stranding. Both ureters appear non-dilated throughout their expected courses. Bladder wall is diffusely thickened. Prostate gland is enlarged. It is noted that there is a calcification along the posterior lateral bladder, anterior to the ureteral vesicular junction, new compared to prior exam. This likely represents the previously identified left ureteral stone on 08/04/2020. Other solid organs: Liver is normal in size. Prominent steatosis. Gallbladder is unremarkable. Pancreas is normal in contours. Spleen is normal in size. No adrenal nodules. Peritoneum and bowel: Unenhanced bowel loops demonstrate normal wall thickness and caliber. No free fluid or air. Significant colonic diverticula are present without associated inflammatory change. Nodes and vessels: No retroperitoneal or mesenteric adenopathy by size criteria. Aorta and inferior vena cava are normal in caliber. Abdominal wall: No ventral hernias. Pelvis: No free pelvic fluid. Bilateral fat containing inguinal hernias are present. Lipoma is noted within the right hip musculature, unchanged. Bones: No suspicious bony lesions. No vertebral body compression fractures. IMPRESSION: 1. Diffusely thickened bladder as above. While this is in part likely secondary to incomplete distension, other etiology such as persistent chronic outlet obstruction secondary to potentially prostate hypertrophy and/or cystitis cannot be excluded as they have a similar imaging appearance. Recommend clinical correlation. 2. Bladder stone likely representing recently passed stone identified in the left ureter on prior exam. 3. Diverticulosis. 4. Simple right renal cyst. Hyperdense focus is noted within the left kidney likely representing a hyperdense cyst given multi-year stability. As clinically indicated, focused ultrasound may be obtained for further evaluation. Dictated by: Nelida Jaime M.D. on 08/30/2020 at 8:51 Approved by: Nelida Jaime M.D. on 08/30/2020 at 10:41
== END ==
PROVIDERS: PCP Student in an Organized Health Care Education/Training Program; Referring Provider Specialist; Visit Provider Specialist
DX: K57.90 Diverticulosis of intestine, part unspecified, without perforation or abscess without bleeding (principal); N28.1 Cyst of kidney, acquired; R33.9 Retention of urine, unspecified
CPT/HCPCS: 51798; 74176

== ENCOUNTER → 2021-05-07 08:52 | Outpatient (CLI) | payer MEDICARE, MEDICAID, SELFPAY ==
[2020-09-12 14:51] VITALS: BMI 28.5
[2021-05-07 09:44] LABS: Hemoglobin 14.1 g/dL (13.5-17.5); Mean Corpuscular HGB Conc 33.7 % (30-36); Mean Corpuscular Hemoglobin 28.4 PG (26-34); Mean Corpuscular Volume 84.3 fL (80-100); Platelet Count 290 X10^3/uL (150-400); Red Blood Cell Count 4.98 X10^6/uL (4.5-5.9); Red Cell Distribution Width 14.3 % (11.6-14.8); White Blood Cell Count 7.3 X10^3/uL (4.5-11.0)
[2021-05-07 09:53] LABS: Hemoglobin A1C% w Est Avg Glu 5.8 % (4.0-6.0)
[2021-05-07 10:16] LABS: Alanine Aminotransferase 19 IU/L (<50); Albumin 3.9 g/dL (3.5-5.0); Albumin Globulin Ratio 1.3 (1.0-2.8); Alkaline Phosphatase 59 U/L (38-126); Aspartate Aminotransferase 24 IU/L (17-59); BUN Creatinine Ratio 22.8 (6-22); Bilirubin Total 0.6 mg/dL (0.2-1.3); Blood Urea Nitrogen 18 mg/dL (9-20); Calcium 9.1 mg/dL (8.4-10.2); Carbon Dioxide 30 mmol/L (22-32); Chloride 105 mmol/L (98-107); Estimated Glomerular Filt Rate > 60.0 mL/min (>60); Globulin 2.9 g/dL (1.7-4.1); Glucose 102 mg/dL (80-110); HEMOLYSIS < 15 (0-50); Potassium 4.4 mmol/L (3.4-5.1); Sodium 138 mmol/L (137-145); Total Protein 6.8 g/dL (6.3-8.2)
[2021-05-07 10:26] LABS: Prostate Specific Antigen 1.29 ng/mL (0.10-4.00)
== END ==
PROVIDERS: Specialist; PCP Student in an Organized Health Care Education/Training Program; Referring Provider Student in an Organized Health Care Education/Training Program; Visit Provider Student in an Organized Health Care Education/Training Program
DX: D64.9 Anemia, unspecified (principal); E11.9 Type 2 diabetes mellitus without complications; R33.9 Retention of urine, unspecified; I10 Essential (primary) hypertension; N13.8 Other obstructive and reflux uropathy; N40.1 Benign prostatic hyperplasia with lower urinary tract symptoms; Z80.42 Family history of malignant neoplasm of prostate
CPT/HCPCS: 36415; 80053; 83036; 84153; 85027

== ENCOUNTER → 2021-09-10 11:09 | Outpatient (CLI) | payer MEDICARE, MEDICAID, SELFPAY ==
[2021-07-29 15:45] VITALS: BMI 28.5
--- NOTE | 2021-09-10 11:11 | DI.RAD.S_ITS ---
PROCEDURE: XR KUB INDICATIONS: history of bladder calculus TECHNIQUE: One view of the abdomen acquired. COMPARISON: [facility], CR, XR KUB, 08/07/2020, 7:49. FINDINGS: Surgical changes and devices: Surgical clips within the right lower quadrant. Bowel: Bowel gas pattern is normal. Soft tissues: No suspicious abdominal calcifications. Visualized solid organ contours appear normal in size. Bones: No suspicious bony lesions. IMPRESSION: Negative examination. Dictated by: Gavin Terry M.D. on 09/10/2021 at 14:19 Approved by: Gavin Terry M.D. on 09/10/2021 at 14:20
[2021-09-10 12:53] LABS: Hemoglobin A1C% w Est Avg Glu 5.9 % (4.0-6.0)
[2021-09-10 13:03] LABS: BUN Creatinine Ratio 23.7 (6-22); Blood Urea Nitrogen 18 mg/dL (9-20); Calcium 9.2 mg/dL (8.4-10.2); Carbon Dioxide 27 mmol/L (22-32); Chloride 105 mmol/L (98-107); Cholesterol 134 mg/dL (140-199); Estimated Glomerular Filt Rate > 60 mL/min (>60); Glucose 102 mg/dL (80-110); HDL Cholesterol 37 mg/dL (40-60); HEMOLYSIS < 15 (0-50); LDL Cholesterol Calculated 78 mg/dL (<100); Potassium 4.4 mmol/L (3.4-5.1); Sodium 138 mmol/L (137-145); Triglycerides 94 mg/dL (35-150)
[2021-09-10 13:43] LABS: Prostate Specific Antigen 1.81 ng/mL (0.10-4.00)
== END ==
PROVIDERS: PCP Student in an Organized Health Care Education/Training Program; Referring Provider Specialist; Visit Provider Specialist
DX: E11.29 Type 2 diabetes mellitus with other diabetic kidney complication (principal); E78.2 Mixed hyperlipidemia; N20.2 Calculus of kidney with calculus of ureter; R80.9 Proteinuria, unspecified; R97.20 Elevated prostate specific antigen [PSA]; I10 Essential (primary) hypertension; Z79.4 Long term (current) use of insulin
CPT/HCPCS: 36415; 74018; 80048; 80061; 83036; 84153

== ENCOUNTER 2021-11-18 07:30 | Outpatient (RCR) | payer MEDICARE, MEDICAID, SELFPAY ==
[2021-07-29 15:45] VITALS: BMI 28.5
--- NOTE | 2021-11-06 15:42 | PT.OIE ---
Current Diagnoses Unspecified abnormalities of gait and mobility (11/06/21) Weakness (11/06/21) History of falling (11/06/21) Past Medical History (Last Updated 09/11/21 @ 09:52 by Seamus Almanza MD) Acquired hypothyroidism (03/30/15) Benign non-nodular prostatic hyperplasia with lower urinary tract symptoms (03/30/15) BPH w urinary obs/LUTS Bullous impetigo Chickenpox Congestive heart failure Coronary artery disease involving coronary bypass graft Coronary artery disease involving [place] coronary artery of [place] heart without angina pectoris (03/30/15) Degenerative disc disease, lumbar Diabetes type 2, uncontrolled Essential hypertension (03/30/15) Foraminal stenosis of lumbosacral region (07/02/17) Fracture of medial condyle of femur Gastroesophageal reflux disease without esophagitis (03/30/15) Heart attack HTN (hypertension) Kidney stone on left side Kidney stones Left foot drop (12/30/16) Measles Mixed hyperlipidemia (03/30/15) Obstructive sleep apnea of adult (~2003) Primary insomnia (~2003) Primary osteoarthritis of both hips (07/02/17) Primary osteoarthritis of left knee (07/02/17) Sciatica Thyroid disease Past Surgical History (Last Reviewed 09/11/21 @ 09:48 by Seamus Almanza MD) History of kidney surgery S/P angioplasty with stent S/P appendectomy (2007) S/P coronary artery bypass graft x 4 S/P partial thyroidectomy (~1999) S/P vasectomy Status post coronary angioplasty Visit Care Team Role Provider Type Hansel Jones MD Attending Provider Physician Family Provider Primary Care Provider Referring Provider Specialty: Internal Medicine Address: [address] [place] [address], [address], [facility] Email: [email or web address] Therapy Initial Evaluation PT-OP-A Visit Information Start: 11/05/21 16:28 Freq: Status: Active Protocol: Document 11/06/21 08:15 AMB (Rec: 11/06/21 09:09 AMB [id number]) Out-Patient Physical Therapy Visit Information Visit Information Visit Type Initial Evaluation Visit Start Time 08:15 Visit Stop Time 09:00 Total Visit Minutes 45 Visit Number 1 PT-OP-B Current Condition Start: 11/05/21 16:28 Freq: Status: Active Protocol: Document 11/06/21 08:15 AMB (Rec: 11/06/21 09:09 AMB [id number]) Current Condition History of Current Condition Onset Date 4 years ago Current Complaints Poor balance/weakness History of Current Condition Stephan reports he started having foot drop 4 years ago, was getting a nerve conduction study, but never got the results because he fell and fractured his left femur and then went to SNF rehab and then didn't follow up. He did have an AFO at one point but it has since broken. 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 Was in the ER last year with blood sugar of 800, but diabetes is better managed now. 10 falls in the last 6 months. Hx of 5 MIs. Has recently lost 75 pounds. just 5 months ago . Pt's step son does live in the house, but he's not around a lot. 2 story house, but doesn't use upstairs. Has a ramp to enter the house. Wants to go on a road trip with his sister in January. Treatment Goals Patient/Caregiver Goals Walk easier. Prior Functional Status Baseline Function- ADL's Modified Independent Baseline Function- Mobility Modified Independent Current Functional Impairments (Reported) Functional Limitations- ADL's Difficulty walking Personal Factors Other Personal Factors That May Effect DMII, multiple IA and stents, Therapy/Recovery old ankle injury (R)40 years ago hurt for a long time but doesn't hurt anymore- fall from flag pole, hypertension, L femur fracture 4 years ago. PT-OP-D Balance Start: 11/05/21 16:28 Freq: Status: Active Protocol: Document 11/06/21 15:13 AMB (Rec: 11/06/21 15:24 AMB [id number]) Balance Tests Other Other Balance Tests Performed Pt loses balance with standing with staff even with eyes open WBOS PT-OP-E Functional Tests Start: 11/05/21 16:28 Freq: Status: Active Protocol: Document 11/06/21 15:13 AMB (Rec: 11/06/21 15:23 AMB [id number]) Functional Tests Five Times Sit to Stand Test Score 11 PT-OP-G Mobility & Gait Start: 11/05/21 16:28 Freq: Status: Active Protocol: Document 11/06/21 15:13 AMB (Rec: 11/06/21 15:23 AMB [id number]) OP Gait Assessment Comments Gait Comments Pt ambulates with staff wooden walking stick. WBOS, evidence for imbalance. Steppage gait due to bilateral foot drop. PT-OP-H Neuro Start: 11/05/21 16:28 Freq: Status: Active Protocol: Document 11/06/21 15:13 AMB (Rec: 11/06/21 15:23 AMB [id number]) Vital Signs Comments Vital Signs Comments Swelling bilaterally in feet and ankles, pitting, light purple color changes throughout feet and lower legs , cold. PT-OP-M Strength Start: 11/05/21 16:28 Freq: Status: Active Protocol: Document 11/06/21 15:13 AMB (Rec: 11/06/21 15:23 AMB [id number]) Hip Strength Hip Manual Muscle Testing Right Flexion (L2) 5 Normal Extension (S1) 5 Normal Left Flexion (L2) 4 Good Extension (S1) 4+ Good+ Knee Strength Knee Manual Muscle Testing Right Flexion (S2) 5 Normal Extension (L3) 5 Normal Left Flexion (S2) 5 Normal Extension (L3) 5 Normal Ankle/Foot Strength Ankle and Foot Manual Muscle Testing Right Dorsiflexion (L4) 1 Trace Plantarflexion (S1) 0 Zero Inversion 0 Zero Eversion (S1) 0 Zero Left Dorsiflexion (L4) 1 Trace Plantarflexion (S1) 1 Trace Inversion 0 Zero Eversion (S1) 0 Zero PT-OP-T Assessment and Plan Start: 11/05/21 16:28 Freq: Status: Active Protocol: Document 11/06/21 08:15 AMB (Rec: 11/06/21 15:31 AMB [id number]) Physical Therapy Assessment Rehab Potential Rehabilitation Potential Good Evaluation Complexity Number of Personal Factors/Comorbidities 3 or More Number of Body Systems Impaired 4 or More Clinical Presentation at Evaluation Evolving Impairments Impairments Balance,Edema,Gait,Strength Goals Three Impairment Strength Short Term Goal (STG) Stephan will be independent and consistent with a strengthening HEP. STG Duration 4 weeks Two Impairment Gait Short Term Goal (STG) Stephan will ambulate for 6 minutes without LOB. STG Duration 4 weeks Half-Way Goal (LTG) Stephan will walk in a grocery store (with cart) for 15 minutes without loss of balance. LTG Duration 8 weeks One Impairment Falls Short Term Goal (STG) Stephan will attain bilateral AFOs and use two walking sticks to decrease his risk of falling. STG Duration 4 weeks Assessment Summary Assessment Stephan attends physical therapy with bilateral foot drop that is impairing his ability to walk and his safety. He reports at least 10 falls in the last 6 months. He had significant weakness in his ankle/foot bilaterally and was recommended to pursue AFOs and given information regarding this. He also was instructed to start using two walking sticks or trekking poles since he does not want to use a walker. His knees and hips are actually fairly strong, but his gait deviations are significant due to his poor ankle strength. He will benefit from physical therapy for a strengthening program, gait training and fall reduction. Physical Therapy Plan Frequency and Duration Frequency of Treatment 2x/Week Duration of Treatment 8 weeks Plan of Care Start Date 11/06/21 Plan of Care End Date 01/01/22 Therapeutic Interventions Therapeutic Interventions Balance Training,Gait Training ,Home Exercise Program,Manual Therapy,Neuromuscular Re- education,Patient/Caregiver Education,Therapeutic Activities,Therapeutic Exercises Next Visit Focus/Plan Next Note Type Treatment Note Next Visit Plan Follow up on AFOs, begin with recumbent stepper, gait training with trekking poles
--- NOTE | 2021-11-06 15:43 | PT.OPPOC ---
Physical, Occupational & Speech Therapy At [facility] Current Diagnoses Unspecified abnormalities of gait and mobility (11/06/21) Weakness (11/06/21) History of falling (11/06/21) Visit Care Team Role Provider Type Hansel Jones MD Attending Provider Physician Family Provider Primary Care Provider Referring Provider Specialty: Internal Medicine Address: [address] [place] [address], [address], [facility] Email: [email or web address] Plan Of Care PT-OP-T Assessment and Plan Start: 11/05/21 16:28 Freq: Status: Active Protocol: Document 11/06/21 08:15 AMB (Rec: 11/06/21 15:31 AMB [id number]) Physical Therapy Assessment Rehab Potential Rehabilitation Potential Good Evaluation Complexity Number of Personal Factors/Comorbidities 3 or More Number of Body Systems Impaired 4 or More Clinical Presentation at Evaluation Evolving Impairments Impairments Balance,Edema,Gait,Strength Goals Three Impairment Strength Short Term Goal (STG) Stephan will be independent and consistent with a strengthening HEP. STG Duration 4 weeks Two Impairment Gait Short Term Goal (STG) Stephan will ambulate for 6 minutes without LOB. STG Duration 4 weeks National [employer] Rec[employer]iter Goal (LTG) Stephan will walk in a grocery store (with cart) for 15 minutes without loss of balance. LTG Duration 8 weeks One Impairment Falls Short Term Goal (STG) Stephan will attain bilateral AFOs and use two walking sticks to decrease his risk of falling. STG Duration 4 weeks Assessment Summary Assessment Stephan attends physical therapy with bilateral foot drop that is impairing his ability to walk and his safety. He reports at least 10 falls in the last 6 months. He had significant weakness in his ankle/foot bilaterally and was recommended to pursue AFOs and given information regarding this. He also was instructed to start using two walking sticks or trekking poles since he does not want to use a walker. His knees and hips are actually fairly strong, but his gait deviations are significant due to his poor ankle strength. He will benefit from physical therapy for a strengthening program, gait training and fall reduction. Physical Therapy Plan Frequency and Duration Frequency of Treatment 2x/Week Duration of Treatment 8 weeks Plan of Care Start Date 11/06/21 Plan of Care End Date 01/01/22 Therapeutic Interventions Therapeutic Interventions Balance Training,Gait Training ,Home Exercise Program,Manual Therapy,Neuromuscular Re- education,Patient/Caregiver Education,Therapeutic Activities,Therapeutic Exercises Next Visit Focus/Plan Next Note Type Treatment Note Next Visit Plan Follow up on AFOs, begin with recumbent stepper, gait training with trekking poles Plan of Care Dates Plan of Care Start Date 11/06/21 Plan of Care End Date 01/01/22 Electronically Signed by: Raquel Camp, PT 11/06/21 [id number] If you are in agreement with this Plan of Care, please return a signed and dated copy. I have reviewed this Plan of Care and certify that the skilled therapy services above are required to meet the patient?s needs. Physician Signature Date Printed Name and Credentials Clinical Instructor Signature Printed Name and Credentials
--- NOTE | 2021-11-11 11:03 | PT.OTN ---
Current Diagnoses Unspecified abnormalities of gait and mobility (11/11/21) Weakness (11/11/21) History of falling (11/11/21) Physical Therapy Treatment Note PT-OP-A Visit Information Start: 11/05/21 16:28 Freq: Status: Active Protocol: Document 11/11/21 07:30 AMB (Rec: 11/11/21 08:17 AMB [id number]) Out-Patient Physical Therapy Visit Information Visit Information Visit Type Treatment Note Visit Start Time 07:30 Visit Stop Time 08:15 Total Visit Minutes 45 Visit Number 2 PT-OP-B Current Condition Start: 11/05/21 16:28 Freq: Status: Active Protocol: Document 11/06/21 08:15 AMB (Rec: 11/06/21 09:09 AMB [id number]) Current Condition History of Current Condition Onset Date 4 years ago Current Complaints Poor balance/weakness History of Current Condition Stephan reports he started having foot drop 4 years ago, was getting a nerve conduction study, but never got the results because he fell and fractured his left femur and then went to SNF rehab and then didn't follow up. He did have an AFO at one point but it has since broken. 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 Was in the ER last year with blood sugar of 800, but diabetes is better managed now. 10 falls in the last 6 months. Hx of 5 MIs. Has recently lost 75 pounds. just 5 months ago . Pt's step son does live in the house, but he's not around a lot. 2 story house, but doesn't use upstairs. Has a ramp to enter the house. Wants to go on a road trip with his sister in January. Treatment Goals Patient/Caregiver Goals Walk easier. Prior Functional Status Baseline Function- ADL's Modified Independent Baseline Function- Mobility Modified Independent Current Functional Impairments (Reported) Functional Limitations- ADL's Difficulty walking Personal Factors Other Personal Factors That May Effect DMII, multiple NC and stents, Therapy/Recovery old ankle injury (R)40 years ago hurt for a long time but doesn't hurt anymore- fall from flag pole, hypertension, L femur fracture 4 years ago. PT-OP-C Subjective Start: 11/05/21 16:28 Freq: Status: Active Protocol: Document 11/11/21 07:30 AMB (Rec: 07/11/22 08:17 AMB [id number]) OP-PT Subjective Patient Comments Patient Comments Pt reports he thought he needed a prescription for the AFOs, so he tried to call his doctors office. PT-OP-D Balance Start: 11/05/21 16:28 Freq: Status: Active Protocol: Document 11/06/21 15:13 AMB (Rec: 11/06/21 15:24 AMB [id number]) Balance Tests Other Other Balance Tests Performed Pt loses balance with standing with staff even with eyes open WBOS PT-OP-E Functional Tests Start: 11/05/21 16:28 Freq: Status: Active Protocol: Document 11/06/21 15:13 AMB (Rec: 11/06/21 15:23 AMB [id number]) Functional Tests Five Times Sit to Stand Test Score 11 PT-OP-G Mobility & Gait Start: 11/05/21 16:28 Freq: Status: Active Protocol: Document 11/06/21 15:13 AMB (Rec: 11/06/21 15:23 AMB [id number]) OP Gait Assessment Comments Gait Comments Pt ambulates with staff wooden walking stick. WBOS, evidence for imbalance. Steppage gait due to bilateral foot drop. PT-OP-H Neuro Start: 11/05/21 16:28 Freq: Status: Active Protocol: Document 11/06/21 15:13 AMB (Rec: 11/06/21 15:23 AMB [id number]) Vital Signs Comments Vital Signs Comments Swelling bilaterally in feet and ankles, pitting, light purple color changes throughout feet and lower legs , cold. PT-OP-M Strength Start: 11/05/21 16:28 Freq: Status: Active Protocol: Document 11/06/21 15:13 AMB (Rec: 11/06/21 15:23 AMB [id number]) Hip Strength Hip Manual Muscle Testing Right Flexion (L2) 5 Normal Extension (S1) 5 Normal Left Flexion (L2) 4 Good Extension (S1) 4+ Good+ Knee Strength Knee Manual Muscle Testing Right Flexion (S2) 5 Normal Extension (L3) 5 Normal Left Flexion (S2) 5 Normal Extension (L3) 5 Normal Ankle/Foot Strength Ankle and Foot Manual Muscle Testing Right Dorsiflexion (L4) 1 Trace Plantarflexion (S1) 0 Zero Inversion 0 Zero Eversion (S1) 0 Zero Left Dorsiflexion (L4) 1 Trace Plantarflexion (S1) 1 Trace Inversion 0 Zero Eversion (S1) 0 Zero PT-OP-Q Treatments Start: 11/05/21 16:28 Freq: Status: Active Protocol: Document 11/11/21 07:30 AMB (Rec: 11/11/21 08:17 AMB [id number]) Cardio Equipment Recumbent Stepper (Sci-Fit) Duration (Minutes) 7 Resistance 3 Seat Position 11 Therapeutic Exercises Sitting Exercises ball squeeze Reps/Minutes 2x10 1 Sitting Exercise Name LAQ Resistance 4# Reps/Minutes 3x10 Standing Exercises sidestepping Reps/Minutes 10'x6 Gait Training Gait Activity paralel bars Level of Assistance SBA Treatment Focus 10 min PT-OP-T Assessment and Plan Start: 11/05/21 16:28 Freq: Status: Active Protocol: Document 11/11/21 07:30 AMB (Rec: 11/11/21 08:17 AMB [id number]) Physical Therapy Assessment Goals Three Impairment Strength Short Term Goal (STG) Stephan will be independent and consistent with a strengthening HEP. STG Duration 4 weeks Two Impairment Gait Short Term Goal (STG) Stephan will ambulate for 6 minutes without LOB. STG Duration 4 weeks Car Escort Goal (LTG) Stephan will walk in a grocery store (with cart) for 15 minutes without loss of balance. LTG Duration 8 weeks One Impairment Falls Short Term Goal (STG) Stephan will attain bilateral AFOs and use two walking sticks to decrease his risk of falling. STG Duration 4 weeks Assessment Summary Assessment Stephan continues to hesitate about using a walker, but does have a 4WW at home. Encouraged in slow gentle increase in activity. Is getting a stationary bike, so encouraged he start with that for his HEP. Pt to call manager terminal. Physical Therapy Plan Next Visit Focus/Plan Next Note Type Treatment Note Next Visit Plan Follow up on AFOs, begin with recumbent stepper, gait training with [employer]
--- NOTE | 2021-11-13 08:18 | PT.OTN ---
Current Diagnoses Unspecified abnormalities of gait and mobility (11/13/21) Weakness (11/13/21) History of falling (11/13/21) Physical Therapy Treatment Note PT-OP-A Visit Information Start: 11/05/21 16:28 Freq: Status: Active Protocol: Document 11/13/21 07:24 AMB (Rec: 11/13/21 08:18 AMB [id number]) Out-Patient Physical Therapy Visit Information Visit Information Visit Type Treatment Note Visit Start Time 07:30 Visit Stop Time 08:15 Total Visit Minutes 45 Visit Number 3 PT-OP-B Current Condition Start: 11/05/21 16:28 Freq: Status: Active Protocol: Document 11/06/21 08:15 AMB (Rec: 11/06/21 09:09 AMB [id number]) Current Condition History of Current Condition Onset Date 4 years ago Current Complaints Poor balance/weakness History of Current Condition Stephan reports he started having foot drop 4 years ago, was getting a nerve conduction study, but never got the results because he fell and fractured his left femur and then went to SNF rehab and then didn't follow up. He did have an AFO at one point but it has since broken. 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 Was in the ER last year with blood sugar of 800, but diabetes is better managed now. 10 falls in the last 6 months. Hx of 5 MIs. Has recently lost 75 pounds. just 5 months ago . Pt's step son does live in the house, but he's not around a lot. 2 story house, but doesn't use upstairs. Has a ramp to enter the house. Wants to go on a road trip with his sister in January. Treatment Goals Patient/Caregiver Goals Walk easier. Prior Functional Status Baseline Function- ADL's Modified Independent Baseline Function- Mobility Modified Independent Current Functional Impairments (Reported) Functional Limitations- ADL's Difficulty walking Personal Factors Other Personal Factors That May Effect DMII, multiple [place] and stents, Therapy/Recovery old ankle injury (R)40 years ago hurt for a long time but doesn't hurt anymore- fall from flag pole, hypertension, L femur fracture 4 years ago. PT-OP-C Subjective Start: 11/05/21 16:28 Freq: Status: Active Protocol: Document 11/13/21 07:24 AMB (Rec: 07/13/22 08:18 AMB [id number]) OP-PT Subjective Patient Comments Patient Comments Pt reports his legs were sore after last visit, has not leslie able to set up stationary bikeyet. Hoping to take 4WW for a walk around the block. PT-OP-D Balance Start: 11/05/21 16:28 Freq: Status: Active Protocol: Document 11/06/21 15:13 AMB (Rec: 11/06/21 15:24 AMB [id number]) Balance Tests Other Other Balance Tests Performed Pt loses balance with standing with staff even with eyes open WBOS PT-OP-E Functional Tests Start: 11/05/21 16:28 Freq: Status: Active Protocol: Document 11/06/21 15:13 AMB (Rec: 11/06/21 15:23 AMB [id number]) Functional Tests Five Times Sit to Stand Test Score 11 PT-OP-G Mobility & Gait Start: 11/05/21 16:28 Freq: Status: Active Protocol: Document 11/06/21 15:13 AMB (Rec: 11/06/21 15:23 AMB [id number]) OP Gait Assessment Comments Gait Comments Pt ambulates with staff wooden walking stick. WBOS, evidence for imbalance. Steppage gait due to bilateral foot drop. PT-OP-H Neuro Start: 11/05/21 16:28 Freq: Status: Active Protocol: Document 11/06/21 15:13 AMB (Rec: 11/06/21 15:23 AMB [id number]) Vital Signs Comments Vital Signs Comments Swelling bilaterally in feet and ankles, pitting, light purple color changes throughout feet and lower legs , cold. PT-OP-M Strength Start: 11/05/21 16:28 Freq: Status: Active Protocol: Document 11/06/21 15:13 AMB (Rec: 11/06/21 15:23 AMB [id number]) Hip Strength Hip Manual Muscle Testing Right Flexion (L2) 5 Normal Extension (S1) 5 Normal Left Flexion (L2) 4 Good Extension (S1) 4+ Good+ Knee Strength Knee Manual Muscle Testing Right Flexion (S2) 5 Normal Extension (L3) 5 Normal Left Flexion (S2) 5 Normal Extension (L3) 5 Normal Ankle/Foot Strength Ankle and Foot Manual Muscle Testing Right Dorsiflexion (L4) 1 Trace Plantarflexion (S1) 0 Zero Inversion 0 Zero Eversion (S1) 0 Zero Left Dorsiflexion (L4) 1 Trace Plantarflexion (S1) 1 Trace Inversion 0 Zero Eversion (S1) 0 Zero PT-OP-Q Treatments Start: 11/05/21 16:28 Freq: Status: Active Protocol: Document 11/13/21 07:24 AMB (Rec: 11/13/21 08:18 AMB [id number]) Cardio Equipment Recumbent Stepper (Sci-Fit) Duration (Minutes) 10 Resistance 3 Seat Position 11 Therapeutic Exercises Sitting Exercises sit to stand Sitting Exercise Name HEP Reps/Minutes 10 Comments UE support, cues for control Standing Exercises hip ext Standing Exercise Name at railing Reps/Minutes 10 each leg sidestepping Reps/Minutes 10'x6 Gait Training Gait Activity 4WW Description SBA Comments instruction in safe use of brakes, transfer to seat to stand PT-OP-T Assessment and Plan Start: 11/05/21 16:28 Freq: Status: Active Protocol: Document 11/13/21 07:24 AMB (Rec: 11/13/21 08:18 AMB [id number]) Physical Therapy Assessment Goals Three Impairment Strength Short Term Goal (STG) Stephan will be independent and consistent with a strengthening HEP. STG Duration 4 weeks Two Impairment Gait Short Term Goal (STG) Stephan will ambulate for 6 minutes without LOB. STG Duration 4 weeks Administrative Assistant Front Desk Goal (LTG) Stephan will walk in a grocery store (with cart) for 15 minutes without loss of balance. LTG Duration 8 weeks One Impairment Falls Short Term Goal (STG) Stephan will attain bilateral AFOs and use two walking sticks to decrease his risk of falling. STG Duration 4 weeks Assessment Summary Assessment Stephan is doing well with sit to stands. Better gait with 4WW.Sent a prescription to Dr. Jones for AFOs. Physical Therapy Plan Next Visit Focus/Plan Next Note Type Treatment Note Next Visit Plan Follow up on AFOs, begin with recumbent stepper, gait training with [employer]
--- NOTE | 2021-11-18 08:11 | PT.OTN ---
Current Diagnoses Unspecified abnormalities of gait and mobility (11/18/21) Weakness (11/18/21) History of falling (11/18/21) Physical Therapy Treatment Note PT-OP-A Visit Information Start: 11/05/21 16:28 Freq: Status: Active Protocol: Document 11/18/21 07:30 AMB (Rec: 11/18/21 08:10 AMB [id number]) Out-Patient Physical Therapy Visit Information Visit Information Visit Type Treatment Note Visit Start Time 07:30 Visit Stop Time 08:15 Total Visit Minutes 45 Visit Number 4 PT-OP-B Current Condition Start: 11/05/21 16:28 Freq: Status: Active Protocol: Document 11/06/21 08:15 AMB (Rec: 11/06/21 09:09 AMB [id number]) Current Condition History of Current Condition Onset Date 4 years ago Current Complaints Poor balance/weakness History of Current Condition Stephan reports he started having foot drop 4 years ago, was getting a nerve conduction study, but never got the results because he fell and fractured his left femur and then went to SNF rehab and then didn't follow up. He did have an AFO at one point but it has since broken. 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 Was in the ER last year with blood sugar of 800, but diabetes is better managed now. 10 falls in the last 6 months. Hx of 5 MIs. Has recently lost 75 pounds. just 5 months ago . Pt's step son does live in the house, but he's not around a lot. 2 story house, but doesn't use upstairs. Has a ramp to enter the house. Wants to go on a road trip with his sister in January. Treatment Goals Patient/Caregiver Goals Walk easier. Prior Functional Status Baseline Function- ADL's Modified Independent Baseline Function- Mobility Modified Independent Current Functional Impairments (Reported) Functional Limitations- ADL's Difficulty walking Personal Factors Other Personal Factors That May Effect DMII, multiple [place] and stents, Therapy/Recovery old ankle injury (R)40 years ago hurt for a long time but doesn't hurt anymore- fall from flag pole, hypertension, L femur fracture 4 years ago. PT-OP-C Subjective Start: 11/05/21 16:28 Freq: Status: Active Protocol: Document 11/18/21 07:30 AMB (Rec: 07/18/22 08:10 AMB [id number]) OP-PT Subjective Patient Comments Patient Comments Took a fall at the car show with a friend. Concerned about walking with two sticks due to floor transfer. Was exposed to covid yesterday, no symptoms. PT-OP-D Balance Start: 11/05/21 16:28 Freq: Status: Active Protocol: Document 11/06/21 15:13 AMB (Rec: 11/06/21 15:24 AMB [id number]) Balance Tests Other Other Balance Tests Performed Pt loses balance with standing with staff even with eyes open WBOS PT-OP-E Functional Tests Start: 11/05/21 16:28 Freq: Status: Active Protocol: Document 11/06/21 15:13 AMB (Rec: 11/06/21 15:23 AMB [id number]) Functional Tests Five Times Sit to Stand Test Score 11 PT-OP-G Mobility & Gait Start: 11/05/21 16:28 Freq: Status: Active Protocol: Document 11/06/21 15:13 AMB (Rec: 11/06/21 15:23 AMB [id number]) OP Gait Assessment Comments Gait Comments Pt ambulates with staff wooden walking stick. WBOS, evidence for imbalance. Steppage gait due to bilateral foot drop. PT-OP-H Neuro Start: 11/05/21 16:28 Freq: Status: Active Protocol: Document 11/06/21 15:13 AMB (Rec: 11/06/21 15:23 AMB [id number]) Vital Signs Comments Vital Signs Comments Swelling bilaterally in feet and ankles, pitting, light purple color changes throughout feet and lower legs , cold. PT-OP-M Strength Start: 11/05/21 16:28 Freq: Status: Active Protocol: Document 11/06/21 15:13 AMB (Rec: 11/06/21 15:23 AMB [id number]) Hip Strength Hip Manual Muscle Testing Right Flexion (L2) 5 Normal Extension (S1) 5 Normal Left Flexion (L2) 4 Good Extension (S1) 4+ Good+ Knee Strength Knee Manual Muscle Testing Right Flexion (S2) 5 Normal Extension (L3) 5 Normal Left Flexion (S2) 5 Normal Extension (L3) 5 Normal Ankle/Foot Strength Ankle and Foot Manual Muscle Testing Right Dorsiflexion (L4) 1 Trace Plantarflexion (S1) 0 Zero Inversion 0 Zero Eversion (S1) 0 Zero Left Dorsiflexion (L4) 1 Trace Plantarflexion (S1) 1 Trace Inversion 0 Zero Eversion (S1) 0 Zero PT-OP-Q Treatments Start: 11/05/21 16:28 Freq: Status: Active Protocol: Document 11/18/21 07:30 AMB (Rec: 11/18/21 08:10 AMB [id number]) Cardio Equipment Recumbent Stepper (Sci-Fit) Duration (Minutes) 10 Resistance 3 Seat Position 11 Therapeutic Exercises Sitting Exercises sit to stand Sitting Exercise Name HEP Reps/Minutes 10 Comments UE support, cues for control ball squeeze Reps/Minutes 2x10 Standing Exercises hip ext Standing Exercise Name at railing Reps/Minutes 10 each leg sidestepping Reps/Minutes 10'x6 Gait Training Gait Activity 4WW Description SBA Distance/Duration 200' Comments instruction in safe use of brakes, transfer to seat to stand PT-OP-T Assessment and Plan Start: 11/05/21 16:28 Freq: Status: Active Protocol: Document 11/18/21 07:30 AMB (Rec: 11/18/21 08:10 AMB [id number]) Physical Therapy Assessment Goals Three Impairment Strength Short Term Goal (STG) Stephan will be independent and consistent with a strengthening HEP. STG Duration 4 weeks Two Impairment Gait Short Term Goal (STG) Stephan will ambulate for 6 minutes without LOB. STG Duration 4 weeks Care Home Goal (LTG) Stephan will walk in a grocery store (with cart) for 15 minutes without loss of balance. LTG Duration 8 weeks One Impairment Falls Short Term Goal (STG) Stephan will attain bilateral AFOs and use two walking sticks to decrease his risk of falling. STG Duration 4 weeks Assessment Summary Assessment Encouraged Stephan to use the 4WW as his gait is so much better with it. Will follow up on where we are with AFO script next visit, as gait without and with cane continues to be very high risk for falling. Physical Therapy Plan Next Visit Focus/Plan Next Note Type Treatment Note Next Visit Plan Follow up on AFOs, begin with recumbent stepper, gait training with trekking poles
--- NOTE | 2021-12-17 07:44 | PT-OP ANOTE ---
Pt DNS for today's appt. When called him to remind about appt, stated forgot had PT today due to has a telecall at 8. He verified next appt on 12/20. He also stated got into see [facility] yesterday, had measurements taken and they are calling to verify his insurance due to forgot his insurance card. He is supposed to call them back later today and keep us up todate going forward for progress on new AFO.
--- NOTE | 2021-12-20 07:46 | PT-OP ANOTE ---
Pt DNS for today's 0730 appt. PARKING LINE PAINTER called regarding missed appt and discussed 2nd missed appt and policy is that pt will be DC after 2 NS/cancel. PARKING LINE PAINTER stated all previous cancels were due to recovering from COVID but that when last spoke missed appt talked that forgot to cancel appt due to conflict with telehealth dr gerard. PARKING LINE PAINTER stated will speak with PT if will DC but that can call office to see if DC and all appts forward cancelled. PARKING LINE PAINTER stated if DC'd, will have to call physician for new referral to continue. Last admin note commented that pt is in process of possibly getting new AFO with [facility], waiting on insurance approval to go forward.
--- NOTE | 2022-01-10 13:31 | PT.OPDS ---
Current Diagnoses Unspecified abnormalities of gait and mobility (11/18/21) Weakness (11/18/21) History of falling (11/18/21) Visit Care Team Role Provider Type Hansel Jones MD Attending Provider Physician Family Provider Primary Care Provider Referring Provider Specialty: Internal Medicine Address: [address] [place] [address], [address] [place] [address], [id number] Email: [email or web address] Visit Number Visit Number 4 Discharge Summary PT-OP-B Current Condition Start: 11/05/21 16:28 Freq: Status: Active Protocol: Document 11/06/21 08:15 AMB (Rec: 11/06/21 09:09 AMB [id number]) Current Condition History of Current Condition Onset Date 4 years ago Current Complaints Poor balance/weakness History of Current Condition Stephan reports he started having foot drop 4 years ago, was getting a nerve conduction study, but never got the results because he fell and fractured his left femur and then went to SNF rehab and then didn't follow up. He did have an AFO at one point but it has since broken. 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 Was in the ER last year with blood sugar of 800, but diabetes is better managed now. 10 falls in the last 6 months. Hx of 5 MIs. Has recently lost 75 pounds. just 5 months ago . Pt's step son does live in the house, but he's not around a lot. 2 story house, but doesn't use upstairs. Has a ramp to enter the house. Wants to go on a road trip with his sister in January. Treatment Goals Patient/Caregiver Goals Walk easier. Prior Functional Status Baseline Function- ADL's Modified Independent Baseline Function- Mobility Modified Independent Current Functional Impairments (Reported) Functional Limitations- ADL's Difficulty walking Personal Factors Other Personal Factors That May Effect DMII, multiple UT and stents, Therapy/Recovery old ankle injury (R)40 years ago hurt for a long time but doesn't hurt anymore- fall from flag pole, hypertension, L femur fracture 4 years ago. PT-OP-C Subjective Start: 11/05/21 16:28 Freq: Status: Active Protocol: Document 11/18/21 07:30 AMB (Rec: 11/18/21 08:10 AMB [id number]) OP-PT Subjective Patient Comments Patient Comments Took a fall at the car show with a friend. Concerned about walking with two sticks due to floor transfer. Was exposed to covid yesterday, no symptoms. PT-OP-D Balance Start: 11/05/21 16:28 Freq: Status: Active Protocol: Document 11/06/21 15:13 AMB (Rec: 11/06/21 15:24 AMB [id number]) Balance Tests Other Other Balance Tests Performed Pt loses balance with standing with staff even with eyes open WBOS PT-OP-E Functional Tests Start: 11/05/21 16:28 Freq: Status: Active Protocol: Document 11/06/21 15:13 AMB (Rec: 11/06/21 15:23 AMB [id number]) Functional Tests Five Times Sit to Stand Test Score 11 PT-OP-G Mobility & Gait Start: 11/05/21 16:28 Freq: Status: Active Protocol: Document 11/06/21 15:13 AMB (Rec: 11/06/21 15:23 AMB [id number]) OP Gait Assessment Comments Gait Comments Pt ambulates with staff wooden walking stick. WBOS, evidence for imbalance. Steppage gait due to bilateral foot drop. PT-OP-H Neuro Start: 11/05/21 16:28 Freq: Status: Active Protocol: Document 11/06/21 15:13 AMB (Rec: 11/06/21 15:23 AMB [id number]) Vital Signs Comments Vital Signs Comments Swelling bilaterally in feet and ankles, pitting, light purple color changes throughout feet and lower legs , cold. PT-OP-M Strength Start: 11/05/21 16:28 Freq: Status: Active Protocol: Document 11/06/21 15:13 AMB (Rec: 11/06/21 15:23 AMB [id number]) Hip Strength Hip Manual Muscle Testing Right Flexion (L2) 5 Normal Extension (S1) 5 Normal Left Flexion (L2) 4 Good Extension (S1) 4+ Good+ Knee Strength Knee Manual Muscle Testing Right Flexion (S2) 5 Normal Extension (L3) 5 Normal Left Flexion (S2) 5 Normal Extension (L3) 5 Normal Ankle/Foot Strength Ankle and Foot Manual Muscle Testing Right Dorsiflexion (L4) 1 Trace Plantarflexion (S1) 0 Zero Inversion 0 Zero Eversion (S1) 0 Zero Left Dorsiflexion (L4) 1 Trace Plantarflexion (S1) 1 Trace Inversion 0 Zero Eversion (S1) 0 Zero PT-OP-T Assessment and Plan Start: 11/05/21 16:28 Freq: Status: Active Protocol: Document 01/10/22 13:28 AMB (Rec: 01/10/22 13:31 [facility] [id number]) Physical Therapy Assessment Goals Three Impairment Strength Short Term Goal (STG) Stephan will be independent and consistent with a strengthening HEP. STG Duration 4 weeks Two Impairment Gait Short Term Goal (STG) Stephan will ambulate for 6 minutes without LOB. STG Duration 4 weeks Fdc Goal (LTG) Stephan will walk in a grocery store (with cart) for 15 minutes without loss of balance. LTG Duration 8 weeks One Impairment Falls Short Term Goal (STG) Stephan will attain bilateral AFOs and use two walking sticks to decrease his risk of falling. STG Duration 4 weeks Assessment Summary Assessment Pt had to cancel multiple appointments due to illness, and then no showed 3 appointments, so he was called and left a voicemail instructing him that he was discharged. He would be welcome to return with a new referral when he is able to consistently attend PT. Physical Therapy Plan Discharge Physical Therapy Discharge Reasons No Longer Attending PT
== END 2022-01-15 12:30 ==
LOC: PHYS 07:30
PROVIDERS: Family Provider Student in an Organized Health Care Education/Training Program; PCP Student in an Organized Health Care Education/Training Program; Referring Provider Student in an Organized Health Care Education/Training Program; Visit Provider Student in an Organized Health Care Education/Training Program
DX: R53.1 Weakness (principal); R26.9 Unspecified abnormalities of gait and mobility; Z91.81 History of falling
CPT/HCPCS: 97110; 97116; 97162

== ENCOUNTER → 2022-06-24 09:06 | Outpatient (CLI) | payer MEDICARE, MEDICAID, SELFPAY ==
[2021-07-29 15:45] VITALS: BMI 28.5
--- NOTE | 2022-06-24 09:14 | DI.CT.S_ITS ---
PROCEDURE: CT IVP A/P W/WO INDICATIONS: MICROSCOPIC HEMATURIA TECHNIQUE: Optional 5 mm thick noncontrast images acquired from the diaphragm to the symphysis pubis. After the administration of intravenous contrast, 5 mm thick images acquired from the diaphragm to the symphysis pubis after a 10-minute delay. 2 mm thick coronal and sagittal reformats were then performed of the kidneys and ureters. For radiation dose reduction, the following was used: automated exposure control, adjustment of mA and/or kV according to patient size. COMPARISON: [facility], CT, CT ABDOMEN PELVIS W CON, 08/04/2020, 10:06. FINDINGS: Image quality: Good Lower chest: Scattered scarring/atelectasis. Partially seen is sternotomy wires. Coronary calcifications. Aortic annular and valvular calcifications. Small hiatal hernia. Solid organs: Unremarkable liver. Gallbladder is unremarkable. No pathologic dilation of the biliary tree or pancreatic duct. There is a moderate-sized duodenal diverticulum adjacent to the ampulla. Pancreatic calcifications again seen, indicating prior inflammation. No splenomegaly. Stable thickening/nodule in the left adrenal gland. Tiny right adrenal myelolipoma Bosniak 1 and 2 renal lesions are present, for which no dedicated followup is necessary per 2019 proposed guidelines. This includes a stable nonenhancing hyperdense likely proteinaceous or hemorrhagic cyst in the left lower pole. No hydronephrosis bilaterally. No ureter filling defects Punctate nonobstructing left lower pole renal stone is present. No calcified bladder stones. Kitt-da-jbrrfsad circumferential bladder wall thickening, also seen previously prostatomegaly and heterogeneity, with suspected median lobe hypertrophy, also seen previously no measurable bladder mass. Vessels and lymph nodes: No abdominal aortic aneurysm or pathologic adenopathy by size criteria. Some prominent upper abdominal lymph nodes are present, seen previously, possibly reactive in etiology. The main portal vein appears patent. Bowel and peritoneum: No pathologic ascites. No bowel obstruction. Colonic diverticula are present. Body wall: Tiny fat containing umbilical hernia. Pelvis: As described above. Bones: No acute or suspicious osseous abnormality. Degenerative changes are present. IMPRESSION: No significant upper tract disease by CT IVP. Numerous Bosniak 1 and Bosniak 2 renal lesions are present, for which no dedicated follow-up is necessary per 2019 proposed guidelines. There is a punctate left lower pole nonobstructing stone. No hydronephrosis. Eizg-jc-ijupytgd diffuse bladder wall thickening, as well as prostatomegaly and heterogeneity, these are not well evaluated on CT. Consider correlation with cystoscopy, PSA, and if necessary MRI. Other findings as above. Dictated by: Rad Burks M.D. on 06/24/2022 at 12:57 Approved by: Rad Burks M.D. on 06/24/2022 at 13:05
[2022-06-24 11:19] LABS: Estimated Glomerular Filt Rate > 60 mL/min (>60)
[2022-06-24 11:22] LABS: BUN Creatinine Ratio 22.2 (6-22); Blood Urea Nitrogen 16 mg/dL (9-20); Calcium 8.8 mg/dL (8.4-10.2); Carbon Dioxide 27 mmol/L (22-32); Chloride 102 mmol/L (98-107); Estimated Glomerular Filt Rate > 60 mL/min (>60); Glucose 103 mg/dL (80-110); HEMOLYSIS < 15 (0-50); Sodium 138 mmol/L (137-145)
== END ==
PROVIDERS: Radiology Diagnostic Radiology; Family Provider Student in an Organized Health Care Education/Training Program; PCP Student in an Organized Health Care Education/Training Program; Referring Provider Urology; Visit Provider Urology
DX: N28.9 Disorder of kidney and ureter, unspecified (principal); N20.0 Calculus of kidney; R31.29 Other microscopic hematuria; E11.29 Type 2 diabetes mellitus with other diabetic kidney complication; R80.9 Proteinuria, unspecified; K44.9 Diaphragmatic hernia without obstruction or gangrene; K57.10 Diverticulosis of small intestine without perforation or abscess without bleeding; K57.90 Diverticulosis of intestine, part unspecified, without perforation or abscess without bleeding; Z79.4 Long term (current) use of insulin
CPT/HCPCS: 36415; 74178; 80048; 82565; 83036

== ENCOUNTER → 2023-01-01 07:00 | Outpatient (CLI) | payer OTHER, MEDICAID, SELFPAY ==
[2022-08-01 14:14] VITALS: BMI 28.5
[2023-01-01 08:26] LABS: Add Manual Diff / Slide Review NO; Basophils Absolute Auto 100 /uL (0-100); Basophils Percent Auto 0.8 % (0-2); Eosinophils Absolute Auto 200 /uL (0-450); Eosinophils Percent Auto 3.2 % (2-4); Hematocrit 37.9 % (41-53); Hemoglobin 12.5 g/dL (13.5-17.5); Lymphocytes Absolute Auto 2000 /uL (1100-4500); Lymphocytes Percent Auto 31.7 % (25-40); Mean Corpuscular HGB Conc 33.1 % (30-36); Mean Corpuscular Hemoglobin 26.2 PG (26-34); Mean Corpuscular Volume 79.2 fL (80-100); Monocytes Absolute Auto 500 /uL (0-900); Monocytes Percent Auto 7.8 % (3-14); Neutrophils Absolute Auto 3600 /uL (1500-7000); Neutrophils Percent Auto 56.5 % (50-75); Platelet Count 301 X10^3/uL (150-400); Red Blood Cell Count 4.78 X10^6/uL (4.5-5.9); Red Cell Distribution Width 16.3 % (11.6-14.8); White Blood Cell Count 6.3 X10^3/uL (4.5-11.0)
[2023-01-01 08:38] LABS: Hemoglobin A1C% w Est Avg Glu 6.4 % (4.0-6.0)
[2023-01-01 08:39] LABS: INR 1.1 (0.9-1.3); Prothrombin Time 12.7 SECONDS (10.1-12.7)
[2023-01-01 08:44] LABS: Alanine Aminotransferase 20 IU/L (<50); Albumin 3.8 g/dL (3.5-5.0); Albumin Globulin Ratio 1.3 (1.0-2.8); Alkaline Phosphatase 62 U/L (38-126); Aspartate Aminotransferase 21 IU/L (17-59); Bilirubin Total 0.4 mg/dL (0.2-1.3); Blood Urea Nitrogen 15 mg/dL (9-20); Calcium 9.1 mg/dL (8.4-10.2); Carbon Dioxide 28 mmol/L (22-32); Chloride 103 mmol/L (98-107); Cholesterol 126 mg/dL (140-199); Estimated Glomerular Filt Rate > 60 mL/min (>60); Globulin 2.9 g/dL (1.7-4.1); Glucose 128 mg/dL (80-110); HDL Cholesterol 37 mg/dL (40-60); HEMOLYSIS < 15 (0-50); LDL Cholesterol Calculated 69 mg/dL (<100); Potassium 4.3 mmol/L (3.4-5.1); Sodium 138 mmol/L (137-145); Total Protein 6.7 g/dL (6.3-8.2); Triglycerides 100 mg/dL (35-150)
== END ==
PROVIDERS: Family Provider Student in an Organized Health Care Education/Training Program; PCP Pediatrics; Referring Provider Pediatrics; Visit Provider Pediatrics
DX: E03.9 Hypothyroidism, unspecified (principal); R23.3 Spontaneous ecchymoses; E11.9 Type 2 diabetes mellitus without complications; E78.2 Mixed hyperlipidemia; G47.33 Obstructive sleep apnea (adult) (pediatric); I10 Essential (primary) hypertension; M16.0 Bilateral primary osteoarthritis of hip; M17.12 Unilateral primary osteoarthritis, left knee; N13.8 Other obstructive and reflux uropathy; N40.1 Benign prostatic hyperplasia with lower urinary tract symptoms; E11.29 Type 2 diabetes mellitus with other diabetic kidney complication; R80.9 Proteinuria, unspecified; Z79.4 Long term (current) use of insulin
CPT/HCPCS: 36415; 80053; 80061; 83036; 85025; 85610

== ENCOUNTER → 2023-12-17 07:41 | Outpatient (CLI) | payer MEDICARE, MEDICAID, SELFPAY ==
[2022-08-01 14:14] VITALS: BMI 28.5
[2023-12-17 09:02] LABS: Add Manual Diff / Slide Review NO; Basophils Absolute Auto 100 /uL (0-100); Basophils Percent Auto 0.9 % (0-2); Eosinophils Absolute Auto 100 /uL (0-450); Eosinophils Percent Auto 1.6 % (2-4); Hematocrit 40.8 % (41-53); Hemoglobin 13.6 g/dL (13.5-17.5); Lymphocytes Absolute Auto 2100 /uL (1100-4500); Lymphocytes Percent Auto 23.6 % (25-40); Mean Corpuscular HGB Conc 33.3 % (30-36); Mean Corpuscular Hemoglobin 28.3 PG (26-34); Mean Corpuscular Volume 85.2 fL (80-100); Monocytes Absolute Auto 700 /uL (0-900); Neutrophils Absolute Auto 5900 /uL (1500-7000); Neutrophils Percent Auto 65.9 % (50-75); Platelet Count 331 X10^3/uL (150-400); Red Blood Cell Count 4.79 X10^6/uL (4.5-5.9); Red Cell Distribution Width 14.8 % (11.6-14.8)
[2023-12-17 09:32] LABS: HEMOLYSIS < 15 (0-50); Iron 66 ug/dL (49-181)
[2023-12-17 09:34] LABS: Alanine Aminotransferase 20 IU/L (<50); Albumin 3.8 g/dL (3.5-5.0); Albumin Globulin Ratio 1.5 (1.0-2.8); Alkaline Phosphatase 88 U/L (38-126); Aspartate Aminotransferase 20 IU/L (17-59); BUN Creatinine Ratio 21.3 (6-22); Bilirubin Total 0.8 mg/dL (0.2-1.3); Blood Urea Nitrogen 20 mg/dL (9-20); Calcium 9.2 mg/dL (8.4-10.2); Carbon Dioxide 26 mmol/L (22-32); Chloride 103 mmol/L (98-107); Cholesterol 123 mg/dL (140-199); Estimated Glomerular Filt Rate > 60 mL/min (>60); Globulin 2.6 g/dL (1.7-4.1); Glucose 132 mg/dL (80-110); HDL Cholesterol 32 mg/dL (40-60); HEMOLYSIS < 15 (0-50); Hemoglobin A1C% w Est Avg Glu 6.4 % (4.0-6.0); LDL Cholesterol Calculated 63 mg/dL (<100); Potassium 4.4 mmol/L (3.4-5.1); Sodium 137 mmol/L (137-145); Total Protein 6.4 g/dL (6.3-8.2); Triglycerides 140 mg/dL (35-150)
[2023-12-17 09:41] LABS: Transferrin 245 mg/dL (206-381)
[2023-12-17 09:51] LABS: Free T4, Direct Thyroxine 1.42 ng/dL (0.78-2.19)
[2023-12-17 10:05] LABS: Thyroid Stimulating Hormone 0.335 uIU/mL (0.47-4.68)
[2023-12-17 10:24] LABS: Vitamin B12 261 pg/mL (239-931)
[2023-12-19 03:11] LABS: Percent Iron Saturation 20 % (20-50); Total Iron Binding Capacity 325 ug/dL (261-462)
== END ==
PROVIDERS: Family Provider Student in an Organized Health Care Education/Training Program; PCP Family Medicine; Referring Provider Family Medicine; Visit Provider Family Medicine
DX: E11.9 Type 2 diabetes mellitus without complications (principal); Z79.4 Long term (current) use of insulin; R23.3 Spontaneous ecchymoses; I25.10 Atherosclerotic heart disease of native coronary artery without angina pectoris; D64.9 Anemia, unspecified; N40.1 Benign prostatic hyperplasia with lower urinary tract symptoms; N13.8 Other obstructive and reflux uropathy; E03.9 Hypothyroidism, unspecified; I10 Essential (primary) hypertension; E78.2 Mixed hyperlipidemia
CPT/HCPCS: 36415; 80053; 80061; 82607; 83036; 83540; 83550; 84439; 84443; 85025

== ENCOUNTER 2024-07-02 12:24 | Emergency (ER) | payer MEDICARE, MEDICAID, SELFPAY ==
[2022-08-01 14:14] VITALS: BMI 28.5
[2024-07-02] VITALS (19 sets, daily range): BP systolic 83–123; BP diastolic 51–71; PULSE 62–72; RESP 16–17; TEMP 36.9; O2SAT 94–98; BMI 34.5
--- NOTE | 2024-07-02 12:34 | DI.RAD.S_ITS ---
PROCEDURE: XR CHEST 1V INDICATIONS: chest pain TECHNIQUE: One view of the chest was acquired. COMPARISON: [facility], CR, XR CHEST 1V, 08/04/2020, 9:40. FINDINGS: Surgical changes and devices: Midline sternal wires. Surgical clips in the upper mediastinum and thyroid bed. Lungs and pleura: Lungs are clear. No pleural effusions or pneumothorax. Mediastinum: Mediastinal contours appear normal. Heart size is normal. Bones and chest wall: No suspicious bony lesions. Overlying soft tissues appear unremarkable. IMPRESSION: No acute cardiopulmonary abnormality is seen. Approved by: Connor Esparza M.D. on 07/02/2024 at 12:31
--- NOTE | 2024-07-02 12:35 | EKG_ITS ---
[id number] [address] Test Date: 2024-07-02 Pat Name: tSephan Cook Department: Room: Gender: Male [employer]: LEIA : 1945 Requested By: Order Number: [id number] Reading MD: Yong De Dios Measurements Intervals [place] Rate: 69 P: DE: 160 QRS: -14 QRSD: 102 T: 12 QT: 400 QTc: 428 Interpretive Statements Sinus rhythm with premature atrial complexes Electronically Signed On 07-03-2024 18:57:34 PST by Yong De Dios
[2024-07-02 13:07] LABS: INR 1.1 (0.9-1.3); Prothrombin Time 12.2 SECONDS (9.4-12.5)
[2024-07-02 13:10] LABS: Alanine Aminotransferase 23 IU/L (<50); Albumin 4.1 g/dL (3.5-5.0); Albumin Globulin Ratio 1.3 (1.0-2.8); Alkaline Phosphatase 48 U/L (38-126); Aspartate Aminotransferase 32 IU/L (17-59); BUN Creatinine Ratio 24.1 (6-22); Bilirubin Total 0.8 mg/dL (0.2-1.3); Blood Urea Nitrogen 27 mg/dL (9-20); Calcium 8.8 mg/dL (8.4-10.2); Carbon Dioxide 27 mmol/L (22-32); Chloride 101 mmol/L (98-107); Creatine Kinase 131 U/L (55-170); Estimated Glomerular Filt Rate > 60 mL/min (>60); Globulin 3.2 g/dL (1.7-4.1); Glucose 174 mg/dL (80-110); Lipase 61 U/L (23-300); Magnesium 2.5 mg/dL (1.6-2.3); PTT Partial Thromboplastin Tim 36 SECONDS (25.1-36.5); Potassium 5.3 mmol/L (3.4-5.1); Sodium 137 mmol/L (137-145); Total Protein 7.3 g/dL (6.3-8.2)
[2024-07-02 13:16] LABS: HEMOLYSIS 101 (0-50)
[2024-07-02 13:22] LABS: NT-proBNP (BNP-Adult 18+) 636 pg/mL (<450); Troponin I < 0.012 ng/mL (0.01-0.034)
[2024-07-02 14:01] LABS: Add Manual Diff / Slide Review NO; Basophils Absolute Auto 100 /uL (0-100); Basophils Percent Auto 0.7 % (0-2); Eosinophils Absolute Auto 200 /uL (0-450); Eosinophils Percent Auto 2.1 % (2-4); Hematocrit 40.2 % (41-53); Hemoglobin 13.4 g/dL (13.5-17.5); Lymphocytes Absolute Auto 2200 /uL (1100-4500); Lymphocytes Percent Auto 25.8 % (25-40); Mean Corpuscular HGB Conc 33.2 % (30-36); Mean Corpuscular Hemoglobin 28.6 PG (26-34); Mean Corpuscular Volume 86.2 fL (80-100); Monocytes Absolute Auto 700 /uL (0-900); Monocytes Percent Auto 8.3 % (3-14); Neutrophils Absolute Auto 5300 /uL (1500-7000); Neutrophils Percent Auto 63.1 % (50-75); Platelet Count 305 X10^3/uL (150-400); Red Blood Cell Count 4.66 X10^6/uL (4.5-5.9); Red Cell Distribution Width 14.7 % (11.6-14.8); White Blood Cell Count 8.4 X10^3/uL (4.5-11.0)
[2024-07-02 15:31] LABS: Troponin I < 0.012 ng/mL (0.01-0.034)
--- NOTE | 2024-07-02 16:03 | ED.CHESTPAIN ---
HPI - Chest Pain General Chief Complaint: Chest Pain Stated Complaint: chest pain Time Seen by Provider: 07/02/24 13:42 Source: patient Mode of arrival: Wheelchair Limitations: no limitations History of Present Illness HPI narrative: 79-year-old male with history of extensive coronary artery disease, followed by local cardiologists most recently Dr. Bear, prior CABG x4 Alexsander Bradford, total 5 stents all done in [place] with last coronary intervention stenting 14 years ago, recently saw his die maintenance technician 2 weeks ago with suggestion to stop Plavix, he still is taking his supply of Plavix, no other blood thinner medications, believes that he will be scheduled for an outpatient echocardiogram, earlier today 1130 had left posterior sharp pain radiating to the left anterior chest, some associated shortness of breath, lasting a few minutes, then a 2nd episode for a couple hours later. Currently not having chest pain. Denies history of blood clots to legs or lungs. Denies any recent leg pain or swelling symptoms. Related Data Home Medications Medication Instructions Recorded Confirmed isosorbide mononitrate 30 mg 30 mg PO DAILY 04/01/22 05/30/24 tablet,extended release 24 hr Previous Rx's Medication Instructions Recorded aspirin 81 mg tablet,delayed 81 mg PO Q DAY #30 tabs 06/10/16 release techlite mis lancets #300 ea 09/25/20 Disabled Parking Permit #1 ea 11/07/22 metoprolol tartrate 25 mg tablet 25 mg PO BID #180 tabs 12/02/22 clopidogrel 75 mg tablet 75 mg PO DAILY #90 tabs 02/03/24 pen needles mis [id number] #300 ea 03/02/24 glucocard test express #300 ea 03/03/24 lisinopril 5 mg tablet 5 mg PO QDAY #90 tabs 04/12/24 Lantus Solostar U-100 Insulin 100 22 unit (0.22 mL) SUBCUT BID #15 mL 05/30/24 unit/mL (3 mL) subcutaneous pen (insulin glargine) finasteride 5 mg tablet 5 mg PO DAILY #90 tabs 05/30/24 levothyroxine 175 mcg tablet 175 mcg PO DAILY #90 tabs 05/30/24 tamsulosin 0.4 mg capsule 0.8 mg (2 x 0.4 mg) PO BEDTIME 05/30/24 #180 caps omeprazole 20 mg capsule,delayed See Rx Instructions .Route 06/02/24 release .COMPLEX #180 caps Novolog FlexPen U-100 Insulin 100 See Rx Instructions .Route 06/16/24 unit/mL (3 mL) subcutaneous .COMPLEX #15 mL (insulin aspart U-100) atorvastatin 80 mg tablet 80 mg PO HS #90 tabs 07/01/24 Allergies Allergy/AdvReac Type Severity Reaction Status Date / Time Sulfa (Sulfonamide Allergy Unknown Verified 07/02/24 12:35 Antibiotics) [SULFA (SULFONAMIDE ANTIBIOTICS)] Patient History Medical History Preoperative clearance Chronic left hip pain Skin lesion Intermittent gross hematuria Type 2 diabetes mellitus without complication, with long-term current use of insulin Actinic keratoses Easy bruising BPH w urinary obs/LUTS Coronary artery disease involving coronary bypass graft Thyroid disease Heart attack HTN (hypertension) Congestive heart failure Diabetes type 2, uncontrolled Bullous impetigo Degenerative disc disease, lumbar Sciatica Chickenpox Measles Kidney stones Obstructive sleep apnea of adult (~2003) Primary insomnia (~2003) Primary osteoarthritis of left knee (07/02/17) Primary osteoarthritis of both hips (07/02/17) Foraminal stenosis of lumbosacral region (07/02/17) Left foot drop (12/30/16) Mixed hyperlipidemia (03/30/15) Gastroesophageal reflux disease without esophagitis (03/30/15) Essential hypertension (03/30/15) Coronary artery disease involving yocha dehe coronary artery of yocha dehe heart without angina pectoris (03/30/15) Benign non-nodular prostatic hyperplasia with lower urinary tract symptoms (03/30/15) Acquired hypothyroidism (03/30/15) Fracture of medial condyle of femur Kidney stone on left side Surgical History History of kidney surgery Status post coronary angioplasty S/P vasectomy S/P coronary artery bypass graft x 4 S/P angioplasty with stent S/P partial thyroidectomy (~1999) S/P appendectomy (2007) Family History Brother Prostate cancer Mother Diabetes mellitus Hypertension Stroke Father Prostate cancer Brother Prostate cancer Social History details: Single, but with same partner 41 years, has children and now grandkids number of children: 3 household members: significant other occupational status: previously employed Smoking Status: Never smoker alcohol intake: former substance use type: does not use caffeine: Yes Smoking Status: Never smoker alcohol intake frequency: 0-2 drinks per day Exam Narrative Exam Narrative: GENERAL: Well-developed patient, in mild distress. HEAD: Atraumatic. Normocephalic. EYES: Pupils equal round and reactive. Extraocular motions intact. No scleral icterus. No injection or drainage. ENT: Nose without bleeding, purulent drainage. Throat without erythema, tonsillar hypertrophy or exudate. Airway patent. NECK: Trachea midline. Non tender CARDIOVASCULAR: Regular rate and rhythm without murmurs, gallops, or rubs. RESPIRATORY: Clear to auscultation. Breath sounds equal bilaterally. No wheezes, rales, or rhonchi. GASTROINTESTINAL: Abdomen soft, non-tender, nondistended. EXTREMITIES: No edema or joint tenderness. BACK: Nontender without deformity or crepitance. No flank tenderness. NEURO: AOx3. Motor functions grossly nonfocal SKIN: No rash or erythema of visible areas Initial Vital Signs Initial Vital Signs: Vital Signs Temperature 98.5 F 07/02/24 12:26 Pulse Rate 72 07/02/24 12:26 Respiratory Rate 17 07/02/24 12:26 Blood Pressure 113/55 L 07/02/24 12:26 Pulse Oximetry 98 07/02/24 12:26 Oxygen Delivery Method Room Air 07/02/24 12:26 Course Orders Ordered: ED Orders 07/02/24 12:34 XR chest 1V Stat EKG-12 Lead Stat 07/02/24 12:50 Complete Blood Count AUTO DIFF Stat Comprehensive Metabolic Panel Stat Lipase Stat Magnesium Stat NT-proBNP (BNP-Adult 18+) Stat PTT Partial Thromboplastin Fernando Stat Prothrombin Time INR Stat Troponin & CK Cardiac Panel Stat 07/02/24 14:57 Potassium Stat Troponin I Stat 07/02/24 16:21 CT angio chest PE protocol Stat Discontinued Medications Sodium Chloride (Normal Saline 0.9%) 1,000 mls @ 500 mls/hr IV BOLUS ONE Stop: 07/02/24 18:06 Last Infusion: 07/02/24 18:25 Dose: Infused Documented By: Admin: 07/02/24 16:25 Dose: 500 mls/hr Documented By: VALENTIN Vital Signs Vital signs: Vital Signs - 8 hr 07/02/24 12:26 07/02/24 12:31 07/02/24 12:31 Temperature 98.5 F Pulse Rate 72 67 Respiratory Rate 17 Blood Pressure 113/55 L 113/55 L Pulse Oximetry 98 95 Oxygen Delivery Method Room Air 07/02/24 13:00 07/02/24 13:00 07/02/24 13:30 Temperature Pulse Rate 62 Respiratory Rate Blood Pressure 96/51 L 83/53 L Pulse Oximetry 95 Oxygen Delivery Method 07/02/24 13:30 07/02/24 13:32 07/02/24 13:32 Temperature Pulse Rate 63 63 Respiratory Rate Blood Pressure 103/57 L Pulse Oximetry 95 95 Oxygen Delivery Method Room Air 07/02/24 14:00 07/02/24 14:00 07/02/24 14:30 Temperature Pulse Rate 71 Respiratory Rate Blood Pressure 101/58 L 99/55 L Pulse Oximetry 96 Oxygen Delivery Method 07/02/24 14:30 07/02/24 15:00 07/02/24 15:00 Temperature Pulse Rate 65 65 Respiratory Rate 16 Blood Pressure 102/62 Pulse Oximetry 95 95 Oxygen Delivery Method 07/02/24 15:30 07/02/24 15:30 07/02/24 16:00 Temperature Pulse Rate 65 63 Respiratory Rate Blood Pressure 101/63 Pulse Oximetry 94 95 Oxygen Delivery Method 07/02/24 16:03 07/02/24 16:03 07/02/24 16:37 Temperature Pulse Rate 64 67 Respiratory Rate Blood Pressure 100/56 L Pulse Oximetry 94 96 Oxygen Delivery Method 07/02/24 16:42 07/02/24 16:42 07/02/24 17:00 Temperature Pulse Rate 65 67 Respiratory Rate Blood Pressure 112/67 Pulse Oximetry 96 94 Oxygen Delivery Method 07/02/24 17:00 07/02/24 17:30 07/02/24 17:31 Temperature Pulse Rate 64 65 Respiratory Rate Blood Pressure 105/60 Pulse Oximetry 95 95 Oxygen Delivery Method 07/02/24 17:33 07/02/24 17:33 07/02/24 18:00 Temperature Pulse Rate 65 66 Respiratory Rate Blood Pressure 101/62 Pulse Oximetry 95 96 Oxygen Delivery Method 07/02/24 18:01 07/02/24 18:01 Temperature Pulse Rate 67 Respiratory Rate Blood Pressure 123/71 Pulse Oximetry 97 Oxygen Delivery Method MDM - Chest Pain Lab Data Attestation: I reviewed the patient's lab results. Lab results narrative: White blood cell count 8400, hemoglobin 13.4, platelets adequate. Glucose 174. BUN 27 with creatinine 1.12 normal. Potassium 5.3 slight elevation noted, sodium 137, serum CO2 27, chloride 101. Liver functions unremarkable. Lipase normal. Creatinine kinase normal. Troponin negative x2 sets. BNP 636. 07/02/24 12:50 07/02/24 14:57 Labs: Lab Results 07/02/24 07/02/24 Range/Units 12:50 14:57 WBC 8.4 (4.5-11.0) X10^3/uL RBC 4.66 (4.5-5.9) X10^6/uL Hgb 13.4 L (13.5-17.5) g/dL Hct 40.2 L (41-53) % MCV 86.2 (80-100) fL MCH 28.6 (26-34) PG MCHC 33.2 (30-36) % RDW 14.7 (11.6-14.8) % Plt Count 305 (150-400) X10^3/uL Neut % (Auto) 63.1 (50-75) % Lymph % (Auto) 25.8 (25-40) % Richardson % (Auto) 8.3 (3-14) % Eos % (Auto) 2.1 (2-4) % Baso % (Auto) 0.7 (0-2) % Neut # (Auto) 5300 (8951-8790) /uL Lymph # (Auto) 2200 (5559-6611) /uL Richardson # (Auto) 700 (0-900) /uL Eos # (Auto) 200 (0-450) /uL Baso # (Auto) 100 (0-100) /uL PT 12.2 (9.4-12.5) SECONDS INR 1.1 (0.9-1.3) APTT 36 (25.1-36.5) SECONDS Sodium 137 (137-145) mmol/L Potassium 5.3 H 4.6 (3.4-5.1) mmol/L Chloride 101 (98-107) mmol/L Carbon Dioxide 27 (22-32) mmol/L BUN 27 H (9-20) mg/dL Creatinine 1.12 (0.66-1.25) mg/dL Estimated GFR > 60 (>60) mL/min BUN/Creatinine Ratio 24.1 H (6-22) Glucose 174 H (80-110) mg/dL Calcium 8.8 (8.4-10.2) mg/dL Magnesium 2.5 H (1.6-2.3) mg/dL Total Bilirubin 0.8 (0.2-1.3) mg/dL AST 32 (17-59) IU/L ALT 23 (<50) IU/L Alkaline Phosphatase 48 (38-126) U/L Total Creatine Kinase 131 (55-170) U/L Troponin I < 0.012 < 0.012 (0.01-0.034) ng/mL NT-Pro-B Natriuret Pep 636 H (<450) pg/mL Total Protein 7.3 (6.3-8.2) g/dL Albumin 4.1 (3.5-5.0) g/dL Globulin 3.2 (1.7-4.1) g/dL Albumin/Globulin Ratio 1.3 (1.0-2.8) Lipase 61 (23-300) U/L Imaging Data Chest x-ray: Radiologist's Impression: Close Chest X-Ray (Signed) Connor Esparza - 07/02/24 Launch?Image [address] [address] XRay Report Signed Patient: [place] MR#: [id number] : 1945 Acct:[id number] Age/Sex: 79 / M Date of Service: 07/02/24 Loc: ED Accession Number: [id number] Procedure: XR chest 1V Ordering Provider: Catracho Loving MD PROCEDURE: XR CHEST 1V INDICATIONS: chest pain TECHNIQUE: One view of the chest was acquired. COMPARISON: [facility], , XR CHEST 1V, 08/04/2020, 9:40. FINDINGS: Surgical changes and devices: Midline sternal wires. Surgical clips in the upper mediastinum and thyroid bed. Lungs and pleura: Lungs are clear. No pleural effusions or pneumothorax. Mediastinum: Mediastinal contours appear normal. Heart size is normal. Bones and chest wall: No suspicious bony lesions. Overlying soft tissues appear unremarkable. IMPRESSION: No acute cardiopulmonary abnormality is seen. Approved by: Connor Esparza M.D. on 07/02/2024 at 12:31 CT angiogram chest: Radiologist's Impression: Close Chest CTA (Signed) Connor Esparza - 07/02/24 Chest X-Ray (Signed) Connor Esparza - 07/02/24 Launch?[address] [address] [address] Scan Report Signed Patient: [place] Cook MR#: [id number] : 1945 Acct:[id number] Age/Sex: 79 / M Date of Service: 07/02/24 Loc: ED Accession Number: [id number] Procedure: CT angio chest PE protocol Ordering Provider: Catracho Loving MD PROCEDURE: CT ANGIO CHEST PE PROTOCOL INDICATIONS: chest pain sharp TECHNIQUE: After the administration of intravenous contrast, 2 mm thick sections acquired from the pulmonary apices to the posterior costophrenic angles. 3-dimensional maximum intensity projection (MIP) coronal and sagittal reformats were then acquired through the thorax. For radiation dose reduction, the following was used: automated exposure control, adjustment of mA and/or kV according to patient size. COMPARISON: None. FINDINGS: Image quality: Diagnostic. Pulmonary arteries: Pulmonary arteries are normal in size, and demonstrate no intraluminal filling defects to suggest central pulmonary embolism. Lower Neck: Thyroidectomy. Midline sternal wires. Thyroid: No thyroid nodules which require sonographic follow up, per consensus guidelines. Axillae: No enlarged lymph nodes. Chest Wall: Unremarkable. Bones: Unremarkable. Lungs and Pleura: No pneumothorax or pleural effusions. No consolidation or suspicious nodules. platelike atelectasis Heart: Heart size is normal. No pericardial effusion. Dense coronary artery vascular calcification Thoracic Vessels: No aortic aneurysm. Mediastinum and Juanita: No enlarged lymph nodes. Esophagus: No wall thickening. No hiatal hernia. Upper Abdomen: Visualized upper abdomen solid organs and bowel loops appear normal. IMPRESSION: No pulmonary embolus. No acute cardiopulmonary process. Approved by: Connor Esparza M.D. on 07/02/2024 at 16:01 ECG Data Attestation: I personally reviewed and interpreted this ECG as follows: Interpretation: Normal sinus rhythm with rate 69, PACs also noted. No obvious ST segment elevation or depression changes. Some movement artifact noted. ND 160, QRS 102, QTC 428. MDM Narrative Medical decision making narrative: 79-year-old male with history of extensive CAD, last coronary intervention 14 years ago, recently saw his die maintenance technician Dr. Yoly Briceno 2 weeks ago, we will be stopping Plavix, awaiting outpatient echocardiogram, now with a couple of episodes of sharp left posterior chest pain radiating anteriorly, with some associated shortness of breath. No tachycardia, no oxygen requirement. No tenderness or rash on examination. Lungs clear. Chest x-ray screening study unremarkable. EKG without obvious ischemic changes. Initial troponin negative. Await interval repeat troponin. Repeat troponin also negative. Increased potassium 5.3 noted, on repeat 4.6 noted. We discussed blood clots to the lungs, he would like evaluation, CT angiogram chest ordered. CT angiogram negative for pulmonary embolus and for other acute chest findings. See radiology report. Case discussed with his die maintenance technician Dr. Bear, advises increased dose of Imdur from 30 mg daily to 60 mg daily. Follow up with him in clinic. Discussed recommendation with patient, who has adequate supply, we will take double dose 30 mg Imdur, reduced dose if he gets dizzy, we will contact office of his die maintenance technician on Thursday. Home with family. Return precautions discussed. Discharge Plan Departure Patient Disposition: Home Clinical Impression: Chest pain Instructions: DI for Chest Pain Activity Restrictions/Additional Instructions: History of coronary artery disease with chest pain earlier today. EKG and serial blood tests not suggestive of heart attack at this time. CT angiogram of the chest was performed, it did not show evidence of a blood clot to the chest, nor any other acute chest findings per Radiology report. Case discussion with your die maintenance technician Dr. Bear, advises increased dose of your isosorbide mononitrate from 30 mg daily to 60 mg daily. He would like to see you in follow up, and we will contact you on Thursday, or contact his office for close follow up appointment. Keep other medications the same for now. Further follow up with your own die maintenance technician as above. Return earlier to this/nearest emergency department for any change worsening symptoms or any concerns prior. Thank you for allowing our team to evaluate you today. Prescriptions: No Action aspirin 81 MG tablet,delayed release (DR/EC) 81 mg PO Q DAY Qty: 30 11RF (DME) techlite mis lancets See Rx Instructions .Route .MEDSUPPLY Qty: 300 3RF Rx Instructions: use to check blood sugar 4 times a day (DME) Disabled Parking Permit See Rx Instructions .ROUTE .MEDSUPPLY Qty: 1 0RF Rx Instructions: I find this patient to be medically disabled and qualified for Disabled Parking as indicated and signed on the accompanying Disabled Parking Application for Individuals. metoprolol tartrate 25 mg tablet 25 mg PO BID Qty: 180 1RF clopidogrel 75 mg tablet 75 mg PO DAILY Qty: 90 2RF (DME) pen needles mis [id number] See Rx Instructions .Route .MEDSUPPLY Qty: 300 3RF Rx Instructions: use to inject insulin 4 times a day (DME) glucocard test express See Rx Instructions .Route .MEDSUPPLY Qty: 300 3RF Rx Instructions: use to check blood sugar 3-4 times a day lisinopril 5 mg tablet 5 mg PO QDAY Qty: 90 3RF omeprazole 20 mg capsule,delayed release(DR/EC) See Rx Instructions .ROUTE .COMPLEX Qty: 180 3RF Dose Instruction: TAKE 2 TABLETS BY MOUTH DAILY Rx Instructions: TAKE 2 TABLETS BY MOUTH DAILY insulin aspart U-100 [Novolog FlexPen U-100 Insulin] 100 unit/mL (3 mL) insulin pen See Rx Instructions .ROUTE .COMPLEX Qty: 15 2RF Hold Instructions: needs labs Dose Instruction: SLIDING SCALE ONLY. ABOUT 4 UNITS FOR EVERY 50 >200. SUBCUTANEOUS BEFORE MEALS AND AT BEDTIME Rx Instructions: SLIDING SCALE ONLY. ABOUT 4 UNITS FOR EVERY 50 >200. SUBCUTANEOUS BEFORE MEALS atorvastatin 80 mg tablet 80 mg PO HS Qty: 90 3RF isosorbide mononitrate 30 mg tablet extended release 24 hr 30 mg PO DAILY insulin glargine [Lantus Solostar U-100 Insulin] 100 unit/mL (3 mL) insulin pen 22 unit SUBCUT BID Qty: 15 5RF Rx Instructions: start 2 units twice a day levothyroxine 175 mcg tablet 175 mcg PO DAILY Qty: 90 3RF tamsulosin 0.4 mg capsule 0.8 mg PO BEDTIME Qty: 180 3RF finasteride 5 mg tablet 5 mg PO DAILY Qty: 90 3RF Referrals: Arron Bear MD [Physician] - Otis Bermudez DO [Primary Care Provider] - Stand Alone Forms: Patient Portal/API/Survey
[2024-07-02 16:18] LABS: HEMOLYSIS 18 (0-50); Potassium 4.6 mmol/L (3.4-5.1)
--- NOTE | 2024-07-02 16:21 | DI.CT.S_ITS ---
PROCEDURE: CT ANGIO CHEST PE PROTOCOL INDICATIONS: chest pain sharp TECHNIQUE: After the administration of intravenous contrast, 2 mm thick sections acquired from the pulmonary apices to the posterior costophrenic angles. 3-dimensional maximum intensity projection (MIP) coronal and sagittal reformats were then acquired through the thorax. For radiation dose reduction, the following was used: automated exposure control, adjustment of mA and/or kV according to patient size. COMPARISON: None. FINDINGS: Image quality: Diagnostic. Pulmonary arteries: Pulmonary arteries are normal in size, and demonstrate no intraluminal filling defects to suggest central pulmonary embolism. Lower Neck: Thyroidectomy. Midline sternal wires. Thyroid: No thyroid nodules which require sonographic follow up, per consensus guidelines. Axillae: No enlarged lymph nodes. Chest Wall: Unremarkable. Bones: Unremarkable. Lungs and Pleura: No pneumothorax or pleural effusions. No consolidation or suspicious nodules. platelike atelectasis Heart: Heart size is normal. No pericardial effusion. Dense coronary artery vascular calcification Thoracic Vessels: No aortic aneurysm. Mediastinum and Juanita: No enlarged lymph nodes. Esophagus: No wall thickening. No hiatal hernia. Upper Abdomen: Visualized upper abdomen solid organs and bowel loops appear normal. IMPRESSION: No pulmonary embolus. No acute cardiopulmonary process. Approved by: Connor Esparza M.D. on 07/02/2024 at 16:01
[2024-07-02] MEDS: SODIUM CHLORIDE 0.9% 1,000 ML 500 ML IV (16:25)
== END 2024-07-02 18:28 | disposition home or self-care (01) ==
PROVIDERS: Emergency Provider Emergency Medicine; Family Provider Student in an Organized Health Care Education/Training Program; PCP Family Medicine
DX: R07.9 Chest pain, unspecified (principal); R06.02 Shortness of breath; I10 Essential (primary) hypertension; I25.10 Atherosclerotic heart disease of native coronary artery without angina pectoris; Z95.1 Presence of aortocoronary bypass graft; Z95.5 Presence of coronary angioplasty implant and graft; Z79.02 Long term (current) use of antithrombotics/antiplatelets
CPT/HCPCS: 36415; 71045; 71275; 80053; 82550; 83690; 83735; 83880; 84132; 84484; 85025; 85610; 85730; 93005; 96360; 96361; 99284; Q9967

== ENCOUNTER → 2024-08-04 06:39 | Outpatient (CLI) | payer MEDICARE, MEDICAID, SELFPAY ==
[2022-08-01 14:14] VITALS: BMI 28.5
--- NOTE | 2024-08-04 06:41 | DI.ECHO.S_ITS ---
[place] [facility]---------+ [facility] : : [address] : : [place] : : [address] : : Phone: [phone] Echocardiogram Report + + :Name: CHRISTINE HO Study Date: 08/04/2024 Height: 72 in : :[facility] ReadingLocation: Weight: 275 lb : : Gender: Male BSA: 2.4 m2 : :: 1945 Age: 79 yrs BP: 111/69 mmHg: :Reason For Study: CORONARY ARTERY DISEASE : :Ordering Physician: ANJUM, : :ARRON Performed By: Deana Aranda : :Referring: ARRON BEAR : + + Interpretation Summary The ejection fraction is estimated to be 50-55%. There are no obvious focal wall motion abnormalities noted but poor endocardial definition reduces the sensitivity for the detection of such. Diastolic parameters suggest a relaxation abnormality of the left ventricle, consistent with probable normal filling pressures. The right ventricle is not well visualized. The right ventricle is grossly normal size. The right ventricular systolic function is normal. The right ventricular systolic pressure is estimated to be at least 31 mmHg based on an estimated right atrial pressure of 3 mm Hg. The left atrial size is normal. There is borderline mitral valve prolapse. There is mild mitral regurgitation. There is mild aortic regurgitation. The ascending aorta is mildly enlarged. Procedure: A two-dimensional transthoracic echocardiogram with color flow and Doppler was performed. The study quality was technically difficult. Comparison is made with the echocardiogram of 09/16/2018. The patient was in sinus rhythm with heart rates between 55-63 bpm during the exam. Left Ventricle: The left ventricle is normal in size and wall thickness. The ejection fraction is estimated to be 50-55%. There are no obvious focal wall motion abnormalities noted but poor endocardial definition reduces the sensitivity for the detection of such. Diastolic parameters suggest a relaxation abnormality of the left ventricle, consistent with probable normal filling pressures. Right Ventricle: The right ventricle is not well visualized. The right ventricle is grossly normal size. The right ventricular systolic function is normal. Atria: The left atrial size is normal. Right atrial size is normal. There is no Doppler evidence for an interatrial shunt. Mitral Valve: The mitral valve leaflets appear mildly thickened, but open well. There is borderline mitral valve prolapse. There is prolapse of the posterior mitral valve leaflet(s). There is mild mitral regurgitation. Aortic Valve: The aortic valve is mildly calcified. There is discrete nodular thickening of the non- coronary cusp. There is mild aortic valve sclerosis. There is no aortic valve stenosis. There is mild aortic regurgitation. Tricuspid Valve: The tricuspid valve leaflets are thin and pliable. There is mild tricuspid regurgitation. The right ventricular systolic pressure is estimated to be at least 31 mmHg based on an estimated right atrial pressure of 3 mm Hg. Pulmonic Valve: The pulmonic valve leaflets are thin and pliable; valve motion is normal. There is no pulmonic valvular regurgitation. Great Vessels: The aortic root is normal size. The ascending aorta is mildly enlarged. The IVC is of normal diameter and collapses greater than 50% with a sniff. This suggests a low right atrial pressure of 3 mm Hg. Pericardium/ Pleura There is no pericardial effusion. There is no pleural effusion. MMode/2D Measurements & Calculations LVIDd: 5.5 cm LVOT diam: 2.4 cm LVIDs: 3.8 cm Ao root diam: 3.4 cm FS: 31.0 % asc Aorta Diam: 3.9 cm EPSS: 1.4 cm Ao Arch Diam (Prox Trans): 3.2 cm IVSd: 0.86 cm LVPWd: 0.86 cm LV schreiber. diameter/BSA (cm/m^2): 2.2 LV sys. diameter/BSA (cm/m^2): 1.5 LA A2 area: 21.0 cm2 RA long axis: 6.4 cm LA A4 area: 24.1 cm2 RA area: 22.6 cm2 LA length (vol): 7.0 cm RA vol: 67.7 ml LA vol: 61.6 ml RA : 27.8 ml/m2 LA vol index: 25.3 ml/m2 IVC diam: 2.3 cm RVD1 (basal): 3.6 cm TAPSE: 1.9 cm Doppler Measurements & Calculations Ao V2 max: 151.7 cm/sec LVOT Max Diogo: 84.7 cm/sec Ao V2 mean: 101.6 cm/sec LV V1 max P.9 mmHg Ao max P.0 mmHg LV V1 VTI: 19.7 cm Ao mean P.8 mmHg IRINEO(I,D): 3.1 cm2 Ao V2 VTI: 29.9 cm IRINEO(V,D): 2.6 cm2 sev ratio: 0.66 IRINEO indexed to BSA (cm^2/m^2): 1.3 AI P1/2t: 775.3 msec AI dec slope: 130.4 cm/sec2 MV E max diogo: 53.9 cm/sec TR max diogo: 262.5 cm/sec MV A max diogo: 73.3 cm/sec TR max P.6 mmHg MV E/A: 0.74 PA V2 max: 106.5 cm/sec Med Peak E' Diogo: 7.0 cm/sec PA V2 mean: 68.4 cm/sec E/E' med: 7.7 PA mean P.1 mmHg Lat Peak E' Diogo: 7.5 cm/sec PA pr(Accel): 41.7 mmHg E/E' lat: 7.2 E/e' average: 7.4 MV dec time: 0.32 sec SV(LVOT): 91.8 ml Reading Physician:12:06 PM
== END ==
PROVIDERS: PCP Family Medicine; Referring Provider Internal Medicine Cardiovascular Disease; Visit Provider Internal Medicine Cardiovascular Disease
DX: I08.3 Combined rheumatic disorders of mitral, aortic and tricuspid valves (principal); I77.89 Other specified disorders of arteries and arterioles; I25.119 Atherosclerotic heart disease of native coronary artery with unspecified angina pectoris
CPT/HCPCS: 93306

== ENCOUNTER → 2024-09-20 15:39 | Outpatient (CLI) | payer OTHER, MEDICAID, SELFPAY ==
[2022-08-01 14:14] VITALS: BMI 28.5
--- NOTE | 2024-09-20 15:40 | DI.US.S_ITS ---
PROCEDURE: US SOFT TISSUE HEAD AND NECK INDICATIONS: RIGHT NECK MASS 3CM TECHNIQUE: Real-time scanning was performed of the neck region of interest, with image documentation. COMPARISON: None. FINDINGS AND IMPRESSION: Corresponding to the right neck palpable area, there is edematous skin thickening with increased vascularity. No discrete measurable mass or fluid collection. Prominent nonenlarged lymph nodes are present with fatty hilar morphology, possibly reactive. Clinical followup is recommended. If there is new or worsening clinical concern, reimaging could be obtained. Dictated by: Rad Burks M.D. on 09/21/2024 at 10:11 Approved by: Rad Burks M.D. on 09/21/2024 at 10:12
== END ==
PROVIDERS: PCP Family Medicine; Referring Provider Family Medicine; Visit Provider Family Medicine
DX: M79.89 Other specified soft tissue disorders (principal); R59.0 Localized enlarged lymph nodes
CPT/HCPCS: 76536